=== PATIENT | male | born 1960 | race Two or more races ===

== ENCOUNTER 2023-01-29 07:10 | Inpatient (IN) | payer MEDICARE, MEDICAID, SELFPAY ==
[2023-01-29] VITALS (15 sets, daily range): BP systolic 72–143; BP diastolic 41–82; PULSE 75–120; RESP 14–32; TEMP 35–38.1; O2SAT 90–100; BMI 24.7; BMI 25.1
--- NOTE | ~2023-01-29 | XR_ITS ---
EXAMINATION: XR CHEST CLINICAL INFORMATION: Intubated. COMPARISON: Chest radiograph dated 07/22/2014. TECHNIQUE: Frontal view of the chest was obtained. FINDINGS: Endotracheal tube with the tip approximately 3.8 cm proximal to the eliot. Mild interstitial prominence without focal airspace consolidation. No pleural effusion or pneumothorax. Stable cardiomediastinal silhouette. No acute osseous abnormality. XR/XR chest 1V IMPRESSION: 1. Endotracheal tube with its tip approximately 3.8 cm proximal to the eliot. 2. Mild interstitial prominence without focal airspace consolidation.
--- NOTE | ~2023-01-29 | CT_ITS ---
EXAMINATION: CT HEAD WITHOUT CONTRAST CLINICAL INFORMATION: Status epilepticus. COMPARISON: CT head dated 07/22/2014. TECHNIQUE: Contiguous axial imaging was performed from the skull base to vertex without intravenous administration of contrast. This CT examination was performed using dose optimization techniques as appropriate, variously including the following: *Automated exposure control *Adjustment of mA and/or kV according to patient size (this includes techniques or standardized protocols for targeted exams where dose is matched to indication/reason for exam; i.e. extremities or head) *Use of iterative reconstruction technique DLP: 751 mGy-cm. FINDINGS: No acute intracranial hemorrhage. No mass effect or midline shift. No parenchymal lesion. The forbes-white differentiation is maintained. No extra-axial fluid collection. The ventricles and sulci are unremarkable. The basal cisterns are patent. The calvarium is intact. Mucoperiosteal thickening of the ethmoid air cells and sphenoid sinuses. Mucous retention cysts versus polyps within the right and left maxillary sinuses. Findings are similar when compared to the prior examination. CT/CT head/brain wo IV con IMPRESSION: No acute intracranial hemorrhage or mass effect.
--- NOTE | 2023-01-29 07:22 | ECG_ITS ---
Test Reason : Status epilepticus Blood Pressure : / mmHG Vent. Rate : 116 BPM Atrial Rate : 116 BPM P-R Int : 118 ms QRS Dur : 086 ms QT Int : 320 ms P-R-T Axes : 031 056 018 degrees QTc Int : 444 ms Sinus tachycardia Nonspecific ST abnormality Abnormal ECG When compared with ECG of 24-JUL-2014 06:59, Vent. rate has increased BY [address] and T wave abnormality present Referred By: Troy Paez Electronically Signed By:MICHELE VOGT
[2023-01-29 07:31] LABS: Glucose, Whole Blood 186 mg/dL (60-115)
[2023-01-29] MEDS: Midazolam HCl/NS 50 MG/50 ML PLAST..BAG IVCONT (07:31)
--- NOTE | 2023-01-29 07:31 | ED_ITS ---
HPI - Seizure General Chief Complaint: Seizure Stated Complaint: SEIZURE Time Seen by Provider: 01/29/23 07:16 Source: EMS and old records reviewed Mode of arrival: EMS Limitations: physical limitation (Due to seizure) History of Present Illness HPI Narrative: This 63-year-old male brought in by EMS from [facility] for status epilepticus. Patient was witnessed by nursing staff at [facility] having a seizure for 15- 20 minutes patient was still seizing on EMS arrival patient was given total of 10 mg of multiple doses of Versed at the scene with no seizure cessation, on arrival patient is not seizing, in postictal status, history was obtained from patient's record known to have TBI and alcohol abuse in the past, patient is on Keppra for his seizure and it appears that he is not compliant with his medication. Related Data Home Medications Medication Instructions Recorded Confirmed acetaminophen 325 mg tablet 650 mg PO Q4H PRN Fever Or Pain 01/29/23 01/29/23 aripiprazole 2 mg tablet 3 mg PO DAILY 01/29/23 01/29/23 aspirin 81 mg chewable tablet 81 mg PO DAILY 01/29/23 01/29/23 bisacodyl 10 mg rectal suppository [address] DAILY PRN Constipation 01/29/23 01/29/23 brimonidine 0.2 % eye drops 1 drp ophthalmic (eye) BID 01/29/23 01/29/23 divalproex 125 mg tablet,delayed 125 mg PO BID 01/29/23 01/29/23 release divalproex 250 mg tablet,delayed 250 mg PO BID 01/29/23 01/29/23 release dorzolamide 2 % eye drops 1 drp ophthalmic (eye) BID 01/29/23 01/29/23 fluoride (sodium) 15 ml dental BID 01/29/23 01/29/23 fluoride (sodium) 1.1 % dental 1 appl dental BEDTIME 01/29/23 01/29/23 paste (PreviDent 5000 Booster Plus) lactulose 10 gram/15 mL oral 60 ml PO TID 01/29/23 01/29/23 solution levetiracetam 750 mg tablet 750 mg PO BID 01/29/23 01/29/23 levothyroxine 50 mcg tablet 50 mcg PO DAILY 01/29/23 01/29/23 omega-3 fatty acids 1,000 mg PO DAILY 01/29/23 01/29/23 sennosides 8.6 mg tablet (senna) 8.6 mg PO DAILY PRN Constipation 01/29/23 01/29/23 sodium phosphates 19 gram-[address] DAILY PRN Constipation 01/29/23 01/29/23 gram/118 mL enema (Fleet Enema) timolol maleate 0.5 % eye drops 1 drp ophthalmic (eye) BID 01/29/23 01/29/23 Allergies Allergy/AdvReac Type Severity Reaction Status Date / Time scallops Allergy Mild UNKNOWN Unverified 04/23/20 18:26 shellfish derived Allergy Mild UNKNOWN Unverified 04/23/20 18:26 [SHELLFISH DERIVED] TUNA FISH Allergy Mild UNKNOWN Uncoded 04/23/20 18:26 Review of Systems Review of Systems: All other systems are reviewed and are negative Constitutional: Reports as per HPI and Reports no additional constitutional complaints Eyes: Reports as per HPI and Reports no additional eye complaints Reports system reviewed and no additional complaints, except as documented Cardiovascular: Reports as per HPI and Reports no additional cardiovascular complaints Respiratory: Reports as per HPI and Reports no additional respiratory complaints Gastrointestinal: Reports as per HPI and Reports no additional gastrointestinal complaints Genitourinary: Reports no additional female genitourinary complaints Musculoskeletal: Reports no additional musculoskeletal complaints Skin/Breast: Reports system reviewed and no additional complaints, except as docu Psychiatric: Reports no additional psychiatric complaints Endocrine: Reports no additional endocrine complaints Hematologic/Lymphatic: Reports no additional hematologic/lymphatic complaints Allergic/Immunologic: Reports no additional allergic/immunologic complaints Reports system reviewed and no additional complaints, except as documented and Reports Abnormal speech present [facility] Social History Social History Advance Directives: No Advance Directives Information Provided: No Physical Exam Vital Signs: Vital Signs: Last Vital Signs Temp 99.9 F 01/29/23 09:03 Pulse 90 01/29/23 09:33 Resp 24 H 01/29/23 09:33 BP 127/67 01/29/23 09:33 Pulse Ox 97 01/29/23 09:03 O2 Del Method Mechanical Ventil ation 01/29/23 09:03 FiO2 30 01/29/23 09:16 BMI result Body Mass Index 24.7 Vital signs have been reviewed as appeared to be correct. Blood pressure normal. Heart rate normal. Respiration rate normal. Temperature normal. Oxygen saturation normal. Appearance: Sedated, intubated. No acute distress. Head: Normal external exam. Normocephalic. Atraumatic. No Bains signs noted. No raccoon eyes noted Eyes: PERRLA. EOMI. Conjunctiva and sclera normal. Eyelids normal. ENT: TM's Normal. Pharynx normal. Uvula midline. Moist mucous membranes. No trismus noted. No drooling noted. No muffled voice noted. Neck: Normal inspection. Neck supple. FROM. No adenopathy. Thyroid Normal. No meningeal signs. No neck mass noted. CVS: Normal heart rate and rhythm. Heart sound normal. No murmurs noted. Pulses normal throughout. Respiratory: No respiratory distress. Painless inspiration. Breath sounds normal. No wheezes/rales/rhonchi noted. Chest nontender. No accessory muscle usage noted or decreased air movement noted. Abdomen: Soft and nontender. Bowel sounds normal in all 4 quadrants. No distention noted. No organomegaly noted. No visible injury noted. Back: No CVA tenderness. Full range of motion noted. Skin: Skin warm and dry. Normal skin color. Normal skin turgor. No rashes/lesions/lacerations noted. Extremities: No lower extremity edema. Extremities exhibit normal range of motion. Extremities nontender. Neuro: Sedated and intubated. Course Reevaluation(s) Reevaluation #1: 63-year-old male came in from [facility] for management of status epilepticus, patient initially needed intubation and started on Versed then propofol drip to control his seizures, patient's labs are unremarkable, patient required Levophed drip for short time in the ED to manage his hypotension secondary to sedation and benzo, Dr. serra was consulted to admit the patient to ICU, patient was extubated in the ED. Loaded with [employer] in the ED. Will admit to the floor. Time: 10:13 Medications Administered Generic Name Dose Route Start Last Admin Trade Name Freq PRN Reason Stop Dose Admin Midazolam HCl 50 mg in 50 mls @ 2 mls/hr 01/29/23 07:30 01/29/23 07:57 Versed IVCONT 0 mg/hr .Q24H VANNA 0 mls/hr Infusion 2 MG/HR Propofol 1,000 mg in 100 mls @ 0 mls/hr 01/29/23 08:00 01/29/23 09:33 Diprivan IVCONT 0 mcg/kg/min .Q0M VANNA 0 mls/hr Titration Protocol Per Protocol Norepinephrine Bitartrate 8 mg in 250 mls @ 0 mls/hr 01/29/23 08:15 01/29/23 09:32 Levophed IV 0 mcg/kg/min .Q0M VANNA 0 mls/hr Titration Protocol Per Protocol Discontinued Medications Generic Name Dose Route Start Last Admin Trade Name Freq PRN Reason Stop Dose Admin Sodium Chloride 1,000 mls @ 999 mls/hr 01/29/23 07:22 01/29/23 08:47 Ns IV 01/29/23 08:22 Infused .Q1H1M ONE Infusion Piperacillin Sod/Tazobactam 50 mls @ 100 mls/hr 01/29/23 07:45 01/29/23 08:47 Sod 3.375 gm/ Sodium Chloride IV 01/29/23 08:14 Infused ONCE ONE Infusion Levetiracetam 1,000 mg in 100 mls @ 400 mls/hr 01/29/23 09:08 01/29/23 09:59 Keppra IV 01/29/23 09:22 Infused ONCE ONE Infusion Midazolam HCl 2 mg 01/29/23 07:26 01/29/23 07:38 Midazolam Hcl/Pf 2 Mg/2 Ml Vial IVPUSH 01/29/23 07:27 2 mg ONCE ONE Administration Succinylcholine Chloride 100 mg 01/29/23 07:26 01/29/23 07:38 Succinylcholine Chloride 200 Mg/10 Ml Vial IVPUSH 01/29/23 07:27 100 mg ONCE ONE Administration Medical Decision Making Differential Diagnosis Differential Diagnoses: The differential diagnosis associated with the presentation includes (Intracranial bleed, status epilepticus, electrolytes abnormalities, severe anemia, aspiration pneumonia.) Admission/Observation Consideration of admission/observation: Escalation of care including admission/observation considered Consult Healthcare Provider Management of the patient was discussed with: Clinical Implementation Specialist (Dr. Serra ) Lab Data MDM Lab Attestation statement: I reviewed the patient's lab results. 01/29/23 07:54 01/29/23 07:54 Labs: Lab Results 01/29/23 01/29/23 01/29/23 Range/Units 07:27 07:54 07:54 WBC 14.5 H (4.8-10.8) X10*3/uL RBC 4.42 L (4.60-5.80) X10*6/uL Hgb 13.5 L (14.0-18.0) g/dl Hct 39.7 L (42.0-52.0) % MCV 89.8 (80.0-98.0) fL MCH 30.5 (27.0-33.0) pg MCHC 34.0 (31.0-36.0) g/dl RDW 11.9 (11.0-16.0) % Plt Count 253 (160-400) X10*3/uL MPV 8.8 L (9.4-12.4) fL Immature Gran % (Auto) 1.4 H (0.0-0.4) % Neut % (Auto) 89.6 H (45-73) % Lymph % (Auto) 2.5 L (20-40) % [place] % (Auto) 6.2 (2-11) % Eos % (Auto) 0.1 (0-4) % Baso % (Auto) 0.2 (0-2) % Lymph # (Auto) 0.4 L (1.2-4.9) X10*3/uL [place] # (Auto) 0.9 (0.1-1.2) X10*3/uL Eos # (Auto) 0.0 (0.0-0.4) X10*3/uL Baso # (Auto) 0.0 (0.0-0.2) X10*3/uL Abs Immat Gran (auto) 0.21 H (0.00-0.03) X10*3/uL Absolute Neuts (auto) 13.0 H (2.0-8.3) x10*3/uL Absolute Nucleated RBC 0.000 (0.0-0.012) X10*3/uL Nucleated RBC % (auto) 0.0 (0.0-0.2) /100WBC Sodium 139 (135-145) mmol/L Potassium 4.0 (3.3-5.1) mmol/L Chloride 110 H (96-108) mmol/L Carbon Dioxide 16 L (22-29) mmol/L Anion Gap 17 (12-20) BUN 11 (9-16) mg/dL Creatinine 1.08 (0.5-1.4) mg/dL Estim Creat Clear Calc 73.2 Estimated GFR > 60 POC Glucose 186 H (60-115) mg/dL Random Glucose 160 H (60-115) mg/dL Lactic Acid (0.5-2.0) mmol/L Calcium 8.7 (8.4-10.2) mg/dL Total Bilirubin 0.4 (0.0-1.0) mg/dL Direct Bilirubin 0.1 (0.0-0.5) mg/dL AST 13 (5-37) U/L ALT 14 (0-40) U/L Alkaline Phosphatase 72 (39-117) U/L Total Creatine Kinase 156 (38-174) U/L Troponin I High Sens (<3.5-35.0) ng/L B-Natriuretic Peptide (<100) pg/mL Total Protein 6.3 L (6.5-8.0) g/dL Albumin 3.6 (3.5-5.0) g/dL Lipase 22 (8-78) U/L Urine Color Urine Appearance Urine pH (5.0-9.0) Ur Specific [place] (1.005-1.025) Urine Protein (Neg-Trace) mg/dL Urine Glucose (UA) (Negative) mg/dL Urine Ketones (Negative) mg/dL Urine Blood (Negative) Urine Nitrite (Negative) Ur Leukocyte Esterase (Negative) Urine RBC (0-2) /HPF Urine WBC (0-5) /HPF Ur Squamous Epith Cells (0-2) /HPF Urine Bacteria (None Seen) Hyaline Casts (0-2) /LPF Influenza Type A (PCR) (Negative) Influenza Type B (PCR) (Negative) RSV RNA Qual (PCR) (Negative) SARS-CoV-2 RNA (RT-PCR) (Negative) 01/29/23 01/29/23 01/29/23 Range/Units 07:54 07:54 07:54 WBC (4.8-10.8) X10*3/uL RBC (4.60-5.80) X10*6/uL Hgb (14.0-18.0) g/dl Hct (42.0-52.0) % MCV (80.0-98.0) fL MCH (27.0-33.0) pg MCHC (31.0-36.0) g/dl RDW (11.0-16.0) % Plt Count (160-400) X10*3/uL MPV (9.4-12.4) fL Immature Gran % (Auto) (0.0-0.4) % Neut % (Auto) (45-73) % Lymph % (Auto) (20-40) % [place] % (Auto) (2-11) % Eos % (Auto) (0-4) % Baso % (Auto) (0-2) % Lymph # (Auto) (1.2-4.9) X10*3/uL [place] # (Auto) (0.1-1.2) X10*3/uL Eos # (Auto) (0.0-0.4) X10*3/uL Baso # (Auto) (0.0-0.2) X10*3/uL Abs Immat Gran (auto) (0.00-0.03) X10*3/uL Absolute Neuts (auto) (2.0-8.3) x10*3/uL Absolute Nucleated RBC (0.0-0.012) X10*3/uL Nucleated RBC % (auto) (0.0-0.2) /100WBC Sodium (135-145) mmol/L Potassium (3.3-5.1) mmol/L Chloride (96-108) mmol/L Carbon Dioxide (22-29) mmol/L Anion Gap (12-20) BUN (9-16) mg/dL Creatinine (0.5-1.4) mg/dL Estim Creat Clear Calc Estimated GFR POC Glucose (60-115) mg/dL Random Glucose (60-115) mg/dL Lactic Acid 7.8 H* (0.5-2.0) mmol/L Calcium (8.4-10.2) mg/dL Total Bilirubin (0.0-1.0) mg/dL Direct Bilirubin (0.0-0.5) mg/dL AST (5-37) U/L ALT (0-40) U/L Alkaline Phosphatase (39-117) U/L Total Creatine Kinase (38-174) U/L Troponin I High Sens 35.4 H (<3.5-35.0) ng/L B-Natriuretic Peptide 26 (<100) pg/mL Total Protein (6.5-8.0) g/dL Albumin (3.5-5.0) g/dL Lipase (8-78) U/L Urine Color Urine Appearance Urine pH (5.0-9.0) Ur Specific [place] (1.005-1.025) Urine Protein (Neg-Trace) mg/dL Urine Glucose (UA) (Negative) mg/dL Urine Ketones (Negative) mg/dL Urine Blood (Negative) Urine Nitrite (Negative) Ur Leukocyte Esterase (Negative) Urine RBC (0-2) /HPF Urine WBC (0-5) /HPF Ur Squamous Epith Cells (0-2) /HPF Urine Bacteria (None Seen) Hyaline Casts (0-2) /LPF Influenza Type A (PCR) (Negative) Influenza Type B (PCR) (Negative) RSV RNA Qual (PCR) (Negative) SARS-CoV-2 RNA (RT-PCR) (Negative) 01/29/23 01/29/23 Range/Units 07:54 08:00 WBC (4.8-10.8) X10*3/uL RBC (4.60-5.80) X10*6/uL Hgb (14.0-18.0) g/dl Hct (42.0-52.0) % MCV (80.0-98.0) fL MCH (27.0-33.0) pg MCHC (31.0-36.0) g/dl RDW (11.0-16.0) % Plt Count (160-400) X10*3/uL MPV (9.4-12.4) fL Immature Gran % (Auto) (0.0-0.4) % Neut % (Auto) (45-73) % Lymph % (Auto) (20-40) % [place] % (Auto) (2-11) % Eos % (Auto) (0-4) % Baso % (Auto) (0-2) % Lymph # (Auto) (1.2-4.9) X10*3/uL [place] # (Auto) (0.1-1.2) X10*3/uL Eos # (Auto) (0.0-0.4) X10*3/uL Baso # (Auto) (0.0-0.2) X10*3/uL Abs Immat Gran (auto) (0.00-0.03) X10*3/uL Absolute Neuts (auto) (2.0-8.3) x10*3/uL Absolute Nucleated RBC (0.0-0.012) X10*3/uL Nucleated RBC % (auto) (0.0-0.2) /100WBC Sodium (135-145) mmol/L Potassium (3.3-5.1) mmol/L Chloride (96-108) mmol/L Carbon Dioxide (22-29) mmol/L Anion Gap (12-20) BUN (9-16) mg/dL Creatinine (0.5-1.4) mg/dL Estim Creat Clear Calc Estimated GFR POC Glucose (60-115) mg/dL Random Glucose (60-115) mg/dL Lactic Acid (0.5-2.0) mmol/L Calcium (8.4-10.2) mg/dL Total Bilirubin (0.0-1.0) mg/dL Direct Bilirubin (0.0-0.5) mg/dL AST (5-37) U/L ALT (0-40) U/L Alkaline Phosphatase (39-117) U/L Total Creatine Kinase (38-174) U/L Troponin I High Sens (<3.5-35.0) ng/L B-Natriuretic Peptide (<100) pg/mL Total Protein (6.5-8.0) g/dL Albumin (3.5-5.0) g/dL Lipase (8-78) U/L Urine Color Yellow Urine Appearance Clear Urine pH 7.0 (5.0-9.0) Ur Specific [place] 1.010 (1.005-1.025) Urine Protein 30 (1+) H (Neg-Trace) mg/dL Urine Glucose (UA) Negative (Negative) mg/dL Urine Ketones Negative (Negative) mg/dL Urine Blood Negative (Negative) Urine Nitrite Negative (Negative) Ur Leukocyte Esterase Negative (Negative) Urine RBC 3-5 H (0-2) /HPF Urine WBC 0-5 (0-5) /HPF Ur Squamous Epith Cells 0-2 (0-2) /HPF Urine Bacteria None Seen (None Seen) Hyaline Casts 0-2 (0-2) /LPF Influenza Type A (PCR) NEGATIVE (Negative) Influenza Type B (PCR) NEGATIVE (Negative) RSV RNA Qual (PCR) NEGATIVE (Negative) SARS-CoV-2 RNA (RT-PCR) NEGATIVE (Negative) Independent Interpretation I performed an independent interpretation of an: EKG (Sinus tachycardia at 01:12, normal axis deviation, normal intervals, no ST-T changes.), Plain X-Ray (. Endotracheal tube with its tip approximately 3.8 cm proximal to the eliot. 2. Mild interstitial prominence without focal airspace consolidation.) and CT Scan (Head: No acute intrathoracic pathology.) Radiology Impression Discussion of test interpretation with radiology: I have reviewed the radiologist's reading. Independent Historian Clinical information obtained from an independent historian. History obtained from or confirmed by: EMS and Other ([facility] nursing staff) Chronic Conditions Patient?s care impacted by: Other (TBI, and history of alcohol abuse.) Procedures Intubation Time out performed: Yes sedative: Versed Mg Given: 2 paralytic: Succinylcholine Mg Given: 100 Laryngoscope: other (Gliding scope) ET Tube Size: 7.5 ET Tube Uncuffed: No Tube Secured Depth (cm): 24 Tube Secured Location: lips Tube Placement Confirmation: visualized tube passing through cords, equal breath sounds bilaterally, no breath sounds over epigastrium and confirmation by capnometry Patient Tolerated Procedure: well Intubation Complications: none Critical Care Time Critical Care Time Critical Care Time: Yes Total Critical Care Time: 60 Attestation: I spent 60 minutes providing critical care service to the patient, this inclu ding time spent at the bedside to evaluate the patient, reassess the patient, monitoring vital signs, review labs, and radiographic studies, counseling the patient/family, discussing the case with consultants, disposition the patient. Discharge Plan Discharge Clinical Impression: Status epilepticus Patient Disposition: Admitted As Inpatient
[2023-01-29] MEDS: 0.9 % Sodium Chloride 1,000 ML 999 ML IV (07:35)
[2023-01-29] MEDS: Succinylcholine Chloride 200 MG/10 ML VIAL 100 MG IVPUSH (07:38)
[2023-01-29] MEDS: Midazolam HCl/PF 2 MG/2 ML VIAL IVPUSH (07:38)
[2023-01-29 08:02] LABS: MANUAL DIFF FLAG NO
[2023-01-29] MEDS: propofoL 1,000 MG/100 ML VIAL 14.04 MG IVCONT (08:03)
[2023-01-29 08:05] LABS: Basophils Percent Auto 0.2 % (0-2); Eosinophils Percent Auto 0.1 % (0-4); Hematocrit 39.7 % (42.0-52.0); Hemoglobin 13.5 g/dl (14.0-18.0); Imm Gran Abs Auto 0.21 X10*3/uL (0.00-0.03); Imm Gran Pct Auto 1.4 % (0.0-0.4); Lymphocytes Absolute Auto 0.4 X10*3/uL (1.2-4.9); Lymphocytes Percent Auto 2.5 % (20-40); Mean Corpuscular Hemoglobin 30.5 pg (27.0-33.0); Mean Corpuscular Volume 89.8 fL (80.0-98.0); Mean Platelet Volume 8.8 fL (9.4-12.4); Monocytes Absolute Auto 0.9 X10*3/uL (0.1-1.2); Monocytes Percent Auto 6.2 % (2-11); Neutrophils Percent Auto 89.6 % (45-73); Platelet Count 253 X10*3/uL (160-400); Red Blood Count 4.42 X10*6/uL (4.60-5.80); Red Cell Distribution Width 11.9 % (11.0-16.0); White Blood Count 14.5 X10*3/uL (4.8-10.8)
[2023-01-29 08:09] LABS: Appearance Urine Clear; Color Urine Yellow; Glucose Urine UA Negative (Negative); Leukocyte Esterase Urine Negative (Negative); Nitrite Urine Negative (Negative); UMIC TRIGGER UACC YES; Urine Blood Negative (Negative); Urine Ketones Negative (Negative); Urine Protein 30 (1+) mg/dL (Neg-Trace)
[2023-01-29 08:14] LABS: Bacteria Urine None Seen (None Seen); Hyaline Casts Urine 0-2 /LPF (0-2); Squamous Epithelial Cell Urine 0-2 /HPF (0-2); WBC Urine 0-5 /HPF (0-5)
[2023-01-29] MEDS: Piperacillin Sodium/Tazobactam 3.375 GM in 0.9 % Sodium Chloride 50 ML IV (08:14)
[2023-01-29 08:18] LABS: Lactic Acid 7.8 mmol/L (0.5-2.0)
[2023-01-29 08:20] LABS: Alanine Aminotransferase 14 U/L (0-40); Albumin Level 3.6 g/dL (3.5-5.0); Alkaline Phosphatase 72 U/L (39-117); Anion Gap 17 (12-20); Aspartate Amino Transferase 13 U/L (5-37); Bilirubin Direct 0.1 mg/dL (0.0-0.5); Bilirubin Total 0.4 mg/dL (0.0-1.0); Blood Urea Nitrogen 11 mg/dL (9-16); Calcium 8.7 mg/dL (8.4-10.2); Carbon Dioxide 16 mmol/L (22-29); Chloride 110 mmol/L (96-108); Creatinine Clr Calc Pharmacy 73.2; Estimated Glomerular Filt Rate > 60; Glucose Random 160 mg/dL (60-115); Lipase 22 U/L (8-78); Sodium 139 mmol/L (135-145); Total Protein 6.3 g/dL (6.5-8.0)
[2023-01-29 08:27] LABS: B Type Natriuretic Peptide 26 pg/mL (<100); Troponin-I High Sensitivity 35.4 ng/L (<3.5-35.0)
[2023-01-29] MEDS: Norepinephrine Bitartrate/D5W 8 MG/250 ML PLAST..BAG 7.31 MG IV (08:29)
[2023-01-29 08:44] LABS: Influenza A PCR NEGATIVE (Negative); Influenza B PCR NEGATIVE (Negative); Resp Syncy Virus RNA Qual PCR NEGATIVE (Negative); SARS COV2 PCR INHOUSE NEGATIVE (Negative)
--- NOTE | 2023-01-29 09:17 | PHA.MEDREC ---
Pharmacy Consult ? Medication Reconciliation Pharmacy has completed the medication reconciliation. Used a list from Claudia at [facility].
[2023-01-29] MEDS: levETIRAcetam in NaCl (iso-os) 1,000 MG/100 ML PIGGYBACK 400 MG IV ×3 (09:19→21:47)
--- NOTE | 2023-01-29 09:50 | PC.NURSE ---
Pt arrived via EMS from [facility] in [place], klonic tonic seizure, Versed 2mg IV Push @ 0715, 100mg Succs IV Push @ 0716, vitals as follows: 137/64, RR 7, SpO2 98%, Co2 17. @ 0719 Pt intubated with 7.5 ET tube 19 @ lip, + color change, 20G IV est. to right hand, 2mg Versed IV pushed @ 0725.
--- NOTE | 2023-01-29 09:54 | PC.NURSE ---
Pt extubated at approximately 0930 (see paper documentation for VS). Pt responds to name, able to follow simple commands, managing own secretions.
[2023-01-29 10:01] LABS: Reflex Lactate? Lactic Acid Added
--- NOTE | 2023-01-29 10:44 | P.HPHOSP_ITS ---
History of Present Illness Date of Service: 01/29/23 Chief Complaint: intractable seizures 63-year-old male well known to me from [facility] presents with intractable seizures. He was witnessed to have repeated seizures at [facility] and transported to [facility] for treatment of same. In ER he required intubation and brief pressors secondary to benzo/propofol use. He seizures did relent and patient was successfully extubated in ER. He did receive a loading dose of Keppra. He will be admitted to telemetry and Keppra repleted IV. When examined, patient recognized me but had some left-sided weakness and facial droop. Review of Systems Review of Systems: Unable to obtain PMFSH Social History Advance Directives: No Advance Directives Information Provided: No Meds Allergies Allergy/AdvReac Type Severity Reaction Status Date / Time scallops Allergy Mild UNKNOWN Unverified 04/23/20 18:26 shellfish derived Allergy Mild UNKNOWN Unverified 04/23/20 18:26 [SHELLFISH DERIVED] TUNA FISH Allergy Mild UNKNOWN Uncoded 04/23/20 18:26 Active Medications: Current Medications Acetaminophen (Acetaminophen 325 Mg Tablet) 650 mg PO Q4H PRN PRN Reason: Fever Or Pain Aripiprazole (Aripiprazole 2 Mg Tablet) 3 mg PO DAILY [facility] Aspirin (Aspirin 81 Mg Tab.Chew) 81 mg PO DAILY [facility] Bisacodyl (Bisacodyl 10 Mg Supp.Rect) 10 mg IA DAILY PRN PRN Reason: Constipation Brimonidine Tartrate (Brimonidine Tartrate 0.2% Oph 5 Ml Bottle) 1 drop EYE- BOTH BID [facility] Divalproex Sodium (Divalproex Sodium 250 Mg Tablet.Dr) 250 mg PO BID [facility] Dorzolamide HCl (Dorzolamide Hcl 2 % Ophth Tamika 10 Ml Drpbtl) 1 drop EYE-BOTH BID [facility] Midazolam HCl (Versed) 50 mg in 50 mls @ 2 mls/hr IVCONT .Q24H [facility] Last Infusion: 01/29/23 07:57 Dose: 0 mg/hr, 0 mls/hr Propofol (Diprivan) 1,000 mg in 100 mls @ 0 mls/hr IVCONT .Q0M [facility]; Protocol Last Titration: 01/29/23 09:33 Dose: 0 mcg/kg/min, 0 mls/hr Norepinephrine Bitartrate (Levophed) 8 mg in 250 mls @ 0 mls/hr IV .Q0M [facility]; Protocol Last Titration: 01/29/23 09:32 Dose: 0 mcg/kg/min, 0 mls/hr Levetiracetam (Keppra) 1,000 mg in 100 mls @ 400 mls/hr IV Q12H [facility] Lactulose (Lactulose 20 Gm/30 Ml Solution) 40 gm PO TID [facility] Levothyroxine Sodium (Levothyroxine Sodium 50 Mcg Tablet) 50 mcg PO DAILY [facility] Non-Formulary Medication (Divalproex) 125 mg PO BID [facility] Pharmacy Consult (Consult Rx Perform Med Rec) 1 each MISCELLANE ONCE PRN PRN Reason: Consult order Senna (Sennosides 8.6 Mg Tablet) 8.6 mg PO DAILY PRN PRN Reason: Constipation Sodium Biphosphate/Sodium Phosphate (Sodium Phosphate,[place]-Dibasic 133 Ml Enema) 118 ml IA DAILY PRN PRN Reason: Constipation Sodium Chloride (0.9 % Sodium Chloride Flush 3 Ml Syringe) 3 ml IVFLUSH QSHIFT [facility] Timolol Maleate (Timolol Maleate 0.5 % Oph Tamika 5 Ml Drbtl) 1 drop EYE-BOTH BID [facility] Home Medications Medication Instructions Recorded Confirmed Last Taken Type acetaminophen 325 mg tablet 650 mg PO Q4H PRN Fever Or Pain 01/29/23 01/29/23 Unknown History aripiprazole 2 mg tablet 3 mg PO DAILY 01/29/23 01/29/23 Unknown History aspirin 81 mg chewable tablet 81 mg PO DAILY 01/29/23 01/29/23 Unknown History bisacodyl 10 mg rectal suppository 10 mg IA DAILY PRN Constipation 01/29/23 01/29/23 Unknown History brimonidine 0.2 % eye drops 1 drp ophthalmic (eye) BID 01/29/23 01/29/23 Unknown History divalproex 125 mg tablet,delayed 125 mg PO BID 01/29/23 01/29/23 Unknown History release divalproex 250 mg tablet,delayed 250 mg PO BID 01/29/23 01/29/23 Unknown History release dorzolamide 2 % eye drops 1 drp ophthalmic (eye) BID 01/29/23 01/29/23 Unknown History fluoride (sodium) 15 ml dental BID 01/29/23 01/29/23 Unknown History fluoride (sodium) 1.1 % dental 1 appl dental BEDTIME 01/29/23 01/29/23 Unknown History paste (PreviDent 5000 Booster Plus) lactulose 10 gram/15 mL oral 60 ml PO TID 01/29/23 01/29/23 Unknown History solution levetiracetam 750 mg tablet 750 mg PO BID 01/29/23 01/29/23 Unknown History levothyroxine 50 mcg tablet 50 mcg PO DAILY 01/29/23 01/29/23 Unknown History omega-3 fatty acids 1,000 mg PO DAILY 01/29/23 01/29/23 Unknown History sennosides 8.6 mg tablet (senna) 8.6 mg PO DAILY PRN Constipation 01/29/23 01/29/23 Unknown History sodium phosphates 19 gram-7 118 ml IA DAILY PRN Constipation 01/29/23 01/29/23 Unknown History gram/118 mL enema (Fleet Enema) timolol maleate 0.5 % eye drops 1 drp ophthalmic (eye) BID 01/29/23 01/29/23 Unknown History Physical Exam Vital Signs and Narrative: Vital Signs: Last Vital Signs Temp 99.9 F 01/29/23 09:03 Pulse 90 01/29/23 09:33 Resp 24 H 01/29/23 09:33 BP 127/67 01/29/23 09:33 Pulse Ox 97 01/29/23 09:03 O2 Del Method Mechanical Ventil ation 01/29/23 09:03 FiO2 30 01/29/23 09:16 BMI result Body Mass Index 24.7 Const: Other: Somnolent but arousable Chest: Other: Clear to auscultation bilaterally no rales rhonchi or wheezes Resp: Other: Clear to auscultation bilaterally no rales rhonchi or wheezes Cardio: Other: No S4; positive S1-S2; no S3 murmurs rubs or gallops GI: Other: Soft nontender nondistended normoactive bowel sounds Neuro: Other: Mild facial asymmetry. Motor 4/5 left upper and lower extremities; 5/5 on right. Sensation is intact speech is slow but understandable Extrem: Other: No edema bilaterally Results Labs 01/29/23 07:54 01/29/23 07:54 Labs: Laboratory Results - last 24 hr 01/29/23 01/29/23 01/29/23 07:27 07:54 07:54 MCV 89.8 MCH 30.5 MCHC 34.0 RDW 11.9 Plt Count 253 MPV 8.8 L Immature Gran % (Auto) 1.4 H Neut % (Auto) 89.6 H Lymph % (Auto) 2.5 L Cascade % (Auto) 6.2 Eos % (Auto) 0.1 Baso % (Auto) 0.2 Lymph # (Auto) 0.4 L Cascade # (Auto) 0.9 Eos # (Auto) 0.0 Baso # (Auto) 0.0 Abs Immat Gran (auto) 0.21 H Absolute Neuts (auto) 13.0 H Absolute Nucleated RBC 0.000 Nucleated RBC % (auto) 0.0 Anion Gap 17 Estim Creat Clear Calc 73.2 Estimated GFR > 60 POC Glucose 186 H Random Glucose 160 H Lactic Acid Calcium 8.7 Total Bilirubin 0.4 Direct Bilirubin 0.1 AST 13 ALT 14 Alkaline Phosphatase 72 Total Creatine Kinase 156 Troponin I High Sens B-Natriuretic Peptide Total Protein 6.3 L Albumin 3.6 Lipase 22 Urine Color Urine Appearance Urine pH Ur Specific [place] Urine Protein Urine Glucose (UA) Urine Ketones Urine Blood Urine Nitrite Ur Leukocyte Esterase Urine RBC Urine WBC Ur Squamous Epith Cells Urine Bacteria Hyaline Casts Influenza Type A (PCR) Influenza Type B (PCR) RSV RNA Qual (PCR) SARS-CoV-2 RNA (RT-PCR) 01/29/23 01/29/23 01/29/23 07:54 07:54 07:54 MCV MCH MCHC RDW Plt Count MPV Immature Gran % (Auto) Neut % (Auto) Lymph % (Auto) Cascade % (Auto) Eos % (Auto) Baso % (Auto) Lymph # (Auto) Cascade # (Auto) Eos # (Auto) Baso # (Auto) Abs Immat Gran (auto) Absolute Neuts (auto) Absolute Nucleated RBC Nucleated RBC % (auto) Anion Gap Estim Creat Clear Calc Estimated GFR POC Glucose Random Glucose Lactic Acid 7.8 H* Calcium Total Bilirubin Direct Bilirubin AST ALT Alkaline Phosphatase Total Creatine Kinase Troponin I High Sens 35.4 H B-Natriuretic Peptide 26 Total Protein Albumin Lipase Urine Color Urine Appearance Urine pH Ur Specific [place] Urine Protein Urine Glucose (UA) Urine Ketones Urine Blood Urine Nitrite Ur Leukocyte Esterase Urine RBC Urine WBC Ur Squamous Epith Cells Urine Bacteria Hyaline Casts Influenza Type A (PCR) Influenza Type B (PCR) RSV RNA Qual (PCR) SARS-CoV-2 RNA (RT-PCR) 01/29/23 01/29/23 07:54 08:00 MCV MCH MCHC RDW Plt Count MPV Immature Gran % (Auto) Neut % (Auto) Lymph % (Auto) Cascade % (Auto) Eos % (Auto) Baso % (Auto) Lymph # (Auto) Cascade # (Auto) Eos # (Auto) Baso # (Auto) Abs Immat Gran (auto) Absolute Neuts (auto) Absolute Nucleated RBC Nucleated RBC % (auto) Anion Gap Estim Creat Clear Calc Estimated GFR POC Glucose Random Glucose Lactic Acid Calcium Total Bilirubin Direct Bilirubin AST ALT Alkaline Phosphatase Total Creatine Kinase Troponin I High Sens B-Natriuretic Peptide Total Protein Albumin Lipase Urine Color Yellow Urine Appearance Clear Urine pH 7.0 Ur Specific [place] 1.010 Urine Protein 30 (1+) H Urine Glucose (UA) Negative Urine Ketones Negative Urine Blood Negative Urine Nitrite Negative Ur Leukocyte Esterase Negative Urine RBC 3-5 H Urine WBC 0-5 Ur Squamous Epith Cells 0-2 Urine Bacteria None Seen Hyaline Casts 0-2 Influenza Type A (PCR) NEGATIVE Influenza Type B (PCR) NEGATIVE RSV RNA Qual (PCR) NEGATIVE SARS-CoV-2 RNA (RT-PCR) NEGATIVE Imaging Radiologist's Impressions: Impressions Chest X-Ray 01/29/23 08:11 IMPRESSION: 1. Endotracheal tube with its tip approximately 3.8 cm proximal to the eliot. 2. Mild interstitial prominence without focal airspace consolidation. Head CT 01/29/23 09:06 IMPRESSION: No acute intracranial hemorrhage or mass effect. Assessment and Plan (1) Status epilepticus: Status: Acute (2) History of traumatic brain injury: Status: Acute (3) Bipolar 1 disorder: Status: Acute Plan 63-year-old male resident of [facility] with history of traumatic brain injury/bipolar 1 disorder with known seizure disorder presents today and status epilepticus. He is known to be noncompliant with medications at [facility]. He was intubated to facilitate benzos/propofol to facilitate seizure cessation; subsequently extubated in the ER. Will be admitted to telemetry overnight hopeful discharge to [facility] in a.m. 1. Status epilepticus/TBI -seizure precautions -IV Keppra q.12 hours -nursing bedside swallow... Advanced diet as appropriate 2. Bipolar disorder -continue home meds if passes swallow -adjust as indicated -return to [facility] as soon as medically acceptable Boots Full Code Patient will require at least 2 midnights going forward of inpatient stay to load with IV Keppra monitor for further seizures. This cannot be done and less acute setting Time Spent With Patient Time: Total time managing care of this patient today ____ minutes. Quality Stroke Does the patient have a stroke diagnosis?: No VTE Prior VTE?: No VTE Risk Level:: Medical - moderate - high VTE Device Contraindication: N/A - Device Ordered VTE Drug Contraindication: Treatment Not Indicated
--- NOTE | 2023-01-29 10:45 | PC.NURSE ---
pct alerting this rn to pt appearing to be on floor in room 5, pt appears to be on knees in front of stretcher, pulling at cardiac, bp, and august wires accidentally. no injury or dislodgment of pt equipment noted to pt, brought back to bed without issue. pt denies any pain, any loc. provider made aware of pt event. bed placed in lowest position with both side rails up.
[2023-01-29 11:15] LABS: ~Lactic Acid-LAB USE ONLY 2.2 mmol/L (0.5-2.0)
--- NOTE | 2023-01-29 11:25 | PC.NURSE ---
Pt post-ictal, attempting to get OOB, stating he has to urinate (August cath in place). Due to Pt cont. trying to remove august and get OOB, August was removed for safety and Pt was given a urinal.
--- NOTE | 2023-01-29 12:12 | PC.NURSE ---
Pt alert, responding to questions appropriately, left sided face droop still noted, able to move left hand appropriately, pending bed assignment, supervisor housecleaner notified/ aware camera needed for Pt safety.
[2023-01-29 12:59] LABS: Reflex Lactate? 2 Y
[2023-01-29 13:28] LABS: ~Lactic Acid-LAB USE ONLY 1.3 mmol/L (0.5-2.0)
[2023-01-29] MEDS: Lactulose 20 GM/30 ML SOLUTION 40 GM PO (21:47)
[2023-01-29] MEDS: Divalproex Sodium 250 MG TABLET.DR PO (21:47)
[2023-01-29] MEDS: Divalproex Sodium Sprinkles 125 MG CAP.DR.SPR PO (21:47)
[2023-01-29] MEDS: 0.9 % Sodium Chloride Flush 3 ML SYRINGE IVFLUSH (21:49)
[2023-01-29] MEDS: Brimonidine Tartrate 0.2% Oph 5 ML BOTTLE 1 DROP EYE-BOTH (23:31)
[2023-01-29] MEDS: timoloL maleate 0.5 % Oph Sol 5 ML DRBTL 1 DROP EYE-BOTH (23:31)
[2023-01-29] MEDS: Dorzolamide HCl 2 % Ophth Sol 10 ML DRPBTL 1 DROP EYE-BOTH (23:31)
[2023-01-30] VITALS: BP 134/80; PULSE 82; RESP 20; TEMP 36.1; O2SAT 96
--- NOTE | 2023-01-30 03:09 | PC.NURSE ---
Pt alert to person, unable to state place or time. Refuses to answer questions when prompting further. No c/o pain or discomfort. No s/sx respiratory distress. No s/sx seziure activity. Seizure precautions in place. Video monitor and constant mortgage broker at bedside. Pt more awake this shift than previous able to participate in bedside swallow exam. Passed, notified regular diet ordered. Pt continues to refuse tele monitor by ripping it off chest. NSR to ST when on and able to capture. See chart for further details. Call mclain within reach, bed in lowest locked position.
[2023-01-30 03:48] VITALS: PULSE 70; RESP 20; TEMP 36.4; O2SAT 97
[2023-01-30] MEDS: Levothyroxine Sodium 50 MCG TABLET PO (05:50)
[2023-01-30 07:01] LABS: MANUAL DIFF FLAG NO
[2023-01-30 07:05] VITALS: BP 129/77; PULSE 74; RESP 20; TEMP 37; O2SAT 96
[2023-01-30 07:06] LABS: Basophils Percent Auto 0.4 % (0-2); Eosinophils Absolute Auto 0.1 X10*3/uL (0.0-0.4); Hematocrit 40.9 % (42.0-52.0); Hemoglobin 13.8 g/dl (14.0-18.0); Imm Gran Abs Auto 0.08 X10*3/uL (0.00-0.03); Imm Gran Pct Auto 0.8 % (0.0-0.4); Lymphocytes Absolute Auto 2.1 X10*3/uL (1.2-4.9); Lymphocytes Percent Auto 20.5 % (20-40); Mean Corpuscular HGB Conc 33.7 g/dl (31.0-36.0); Mean Corpuscular Hemoglobin 30.2 pg (27.0-33.0); Mean Corpuscular Volume 89.5 fL (80.0-98.0); Mean Platelet Volume 9.3 fL (9.4-12.4); Monocytes Percent Auto 9.8 % (2-11); Neutrophils Absolute Auto 6.9 x10*3/uL (2.0-8.3); Neutrophils Percent Auto 67.5 % (45-73); Platelet Count 243 X10*3/uL (160-400); Red Blood Count 4.57 X10*6/uL (4.60-5.80); Red Cell Distribution Width 12.1 % (11.0-16.0); White Blood Count 10.3 X10*3/uL (4.8-10.8)
[2023-01-30] MEDS: ARIPiprazole 2 MG TABLET 3 MG PO (08:04)
[2023-01-30] MEDS: Divalproex Sodium 250 MG TABLET.DR PO (08:04)
[2023-01-30] MEDS: Aspirin 81 MG TAB.CHEW PO (08:04)
[2023-01-30] MEDS: Divalproex Sodium Sprinkles 125 MG CAP.DR.SPR PO (08:04)
[2023-01-30] MEDS: Brimonidine Tartrate 0.2% Oph 5 ML BOTTLE 1 DROP EYE-BOTH (08:05)
[2023-01-30] MEDS: timoloL maleate 0.5 % Oph Sol 5 ML DRBTL 1 DROP EYE-BOTH (08:05)
[2023-01-30] MEDS: Dorzolamide HCl 2 % Ophth Sol 10 ML DRPBTL 1 DROP EYE-BOTH (08:05)
[2023-01-30] MEDS: 0.9 % Sodium Chloride Flush 3 ML SYRINGE IVFLUSH (08:05)
[2023-01-30] MEDS: levETIRAcetam in NaCl (iso-os) 1,000 MG/100 ML PIGGYBACK 400 MG IV (08:06)
--- NOTE | 2023-01-30 08:11 | MHC.CM.PN ---
Patient is a LTC Resident od [facility] and returning there is the goal. CM has initiated and will follow for dc planning.IMM addressed.
[2023-01-30 08:51] LABS: Alanine Aminotransferase 21 U/L (0-40); Albumin Level 3.8 g/dL (3.5-5.0); Alkaline Phosphatase 73 U/L (39-117); Anion Gap 14 (12-20); Aspartate Amino Transferase 47 U/L (5-37); Bilirubin Total 0.8 mg/dL (0.0-1.0); Blood Urea Nitrogen 10 mg/dL (9-16); Calcium 9.3 mg/dL (8.4-10.2); Carbon Dioxide 22 mmol/L (22-29); Chloride 108 mmol/L (96-108); Creatinine Clr Calc Pharmacy 106.8; Estimated Glomerular Filt Rate > 60; Glucose Fasting 71 mg/dL (60-99); Potassium 3.8 mmol/L (3.3-5.1); Sodium 140 mmol/L (135-145); Total Protein 6.7 g/dL (6.5-8.0)
[2023-01-30 09:29] LABS: Valproate 22.6 mcg/mL (50.0-100.0)
--- NOTE | 2023-01-30 10:46 | PM.NEUROCN ---
History of Present Illness Data of Consult Service Date: 01/30/23 Primary Care Provider: Douglas Kelly DO HPI Reason for consult: Seizure disorder 63 years old man who had multiple admission in this hospital with ?seizures?. This time he was again noted to have seizures and was treated in emergency room including intubation. At some point he was extubated and now he was doing better. During this time he was treated with Keppra. He could not provide meaningful detail, which has been the case during my previous interactions with him. Review of Systems Review of Systems: No recent cold or flu-like illness PMFSH Social History Social History Household Members: Unknown / Unable to assess Housing: Other Housing Other:: pt came in from [facility] Do you presently have visiting nurse or other home services: No Patient Tobacco Use Status: Never used Tobacco e-Cigarette/Vaping Use: Never Used service: No Meds Allergies Allergy/AdvReac Type Severity Reaction Status Date / Time scallops Allergy Mild UNKNOWN Unverified 04/23/20 18:26 shellfish derived Allergy Mild UNKNOWN Unverified 04/23/20 18:26 [SHELLFISH DERIVED] TUNA FISH Allergy Mild UNKNOWN Uncoded 04/23/20 18:26 Active Medications: Current Medications Acetaminophen (Acetaminophen 325 Mg Tablet) 650 mg PO Q4H PRN PRN Reason: Fever Or Pain Aripiprazole (Aripiprazole 2 Mg Tablet) 3 mg PO DAILY [facility] Last Admin: 01/30/23 08:04 Dose: 3 mg Aspirin (Aspirin 81 Mg Tab.Chew) 81 mg PO DAILY [facility] Last Admin: 01/30/23 08:04 Dose: 81 mg Bisacodyl (Bisacodyl 10 Mg Supp.Rect) 10 mg AK DAILY PRN PRN Reason: Constipation Brimonidine Tartrate (Brimonidine Tartrate 0.2% Oph 5 Ml Bottle) 1 drop EYE-BOTH BID [facility] Last Admin: 01/30/23 08:05 Dose: 1 drop Divalproex Sodium (Divalproex Sodium 250 Mg Tablet.Dr) 250 mg PO BID [facility] Last Admin: 01/30/23 08:04 Dose: 250 mg Divalproex Sodium (Divalproex Sodium Sprinkles 125 Mg Cap.Dr.Spr) 125 mg PO BID [facility] Last Admin: 01/30/23 08:04 Dose: 125 mg Dorzolamide HCl (Dorzolamide Hcl 2 % Ophth Tamika 10 Ml Drpbtl) 1 drop EYE-BOTH BID [facility] Last Admin: 01/30/23 08:05 Dose: 1 drop Propofol (Diprivan) 1,000 mg in 100 mls @ 0 mls/hr IVCONT .Q0M [facility]; Protocol Last Titration: 01/29/23 09:33 Dose: 0 mcg/kg/min, 0 mls/hr Levetiracetam (Keppra) 1,000 mg in 100 mls @ 400 mls/hr IV BID [facility] Last Infusion: 01/30/23 08:29 Dose: Infused Lactulose (Lactulose 20 Gm/30 Ml Solution) 40 gm PO TID [facility] Last Admin: 01/30/23 08:05 Dose: Not Given Levothyroxine Sodium (Levothyroxine Sodium 50 Mcg Tablet) 50 mcg PO DAILY@0600 [facility] Last Admin: 01/30/23 05:50 Dose: 50 mcg Pharmacy Consult (Consult Rx Perform Med Rec) 1 each MISCELLANE ONCE PRN PRN Reason: Consult order Senna (Sennosides 8.6 Mg Tablet) 8.6 mg PO DAILY PRN PRN Reason: Constipation Sodium Biphosphate/Sodium Phosphate (Sodium Phosphate,[place]-Dibasic 133 Ml Enema) 118 ml AK DAILY PRN PRN Reason: Constipation Sodium Chloride (0.9 % Sodium Chloride Flush 3 Ml Syringe) 3 ml IVFLUSH QSHIFT [facility] Last Admin: 01/30/23 08:05 Dose: 3 ml Timolol Maleate (Timolol Maleate 0.5 % Oph Tamika 5 Ml Drbtl) 1 drop EYE-BOTH BID [facility] Last Admin: 01/30/23 08:05 Dose: 1 drop Home Medications Medication Instructions Recorded Confirmed Last Taken Type acetaminophen 325 mg tablet 650 mg PO Q4H PRN Fever Or Pain 01/29/23 01/29/23 Unknown History aripiprazole 2 mg tablet 3 mg PO DAILY 01/29/23 01/29/23 Unknown History aspirin 81 mg chewable tablet 81 mg PO DAILY 01/29/23 01/29/23 Unknown History bisacodyl 10 mg rectal suppository 10 mg AK DAILY PRN Constipation 01/29/23 01/29/23 Unknown History brimonidine 0.2 % eye drops 1 drp ophthalmic (eye) BID 01/29/23 01/29/23 Unknown History divalproex 125 mg tablet,delayed 125 mg PO BID 01/29/23 01/29/23 Unknown History release divalproex 250 mg tablet,delayed 250 mg PO BID 01/29/23 01/29/23 Unknown History release dorzolamide 2 % eye drops 1 drp ophthalmic (eye) BID 01/29/23 01/29/23 Unknown History fluoride (sodium) 15 ml dental BID 01/29/23 01/29/23 Unknown History fluoride (sodium) 1.1 % dental 1 appl dental BEDTIME 01/29/23 01/29/23 Unknown History paste (PreviDent 5000 Booster Plus) lactulose 10 gram/15 mL oral 60 ml PO TID 01/29/23 01/29/23 Unknown History solution levetiracetam 750 mg tablet 750 mg PO BID 01/29/23 01/29/23 Unknown History levothyroxine 50 mcg tablet 50 mcg PO DAILY 01/29/23 01/29/23 Unknown History omega-3 fatty acids 1,000 mg PO DAILY 01/29/23 01/29/23 Unknown History sennosides 8.6 mg tablet (senna) 8.6 mg PO DAILY PRN Constipation 01/29/23 01/29/23 Unknown History sodium phosphates 19 gram-7 118 ml AK DAILY PRN Constipation 01/29/23 01/29/23 Unknown History gram/118 mL enema (Fleet Enema) timolol maleate 0.5 % eye drops 1 drp ophthalmic (eye) BID 01/29/23 01/29/23 Unknown History Physical Exam Vital Signs: Vital Signs: Last Vital Signs Temp 98.6 F 01/30/23 07:05 Pulse 74 01/30/23 07:05 Resp 20 01/30/23 07:05 BP 129/77 01/30/23 07:05 Pulse Ox 96 01/30/23 07:05 O2 Del Method Room Air 01/30/23 07:05 FiO2 30 01/29/23 09:16 BMI result Body Mass Index 25.1 Neuro: Other: Alert and awake with normal spontaneity of speech fluency comprehension and euphoric affect. Face is symmetrical. Visual rodrigez are full. There is no focal arm or leg weakness. Deep tendon reflexes are trace to 1+ with flexor plantars were Results Labs 01/30/23 05:46 01/30/23 05:46 Labs: Short CBC 01/30/23 Range/Units 05:46 WBC 10.3 (4.8-10.8) X10*3/uL Hgb 13.8 L (14.0-18.0) g/dl Hct 40.9 L (42.0-52.0) % Plt Count 243 (160-400) X10*3/uL BMP 01/30/23 05:46 Sodium 140 Potassium 3.8 Chloride 108 Carbon Dioxide 22 BUN 10 Creatinine 0.74 Calcium 9.3 D Liver Function 01/30/23 Range/Units 05:46 Total Bilirubin 0.8 (0.0-1.0) mg/dL AST 47 H (5-37) U/L ALT 21 (0-40) U/L Alkaline Phosphatase 73 (39-117) U/L Albumin 3.8 (3.5-5.0) g/dL Head CT revealed mild microvascular ischemic changes per Microbiology Microbiology Results: Microbiology 01/29/23 07:54 Blood - Venous Blood Culture - Preliminary No growth after 24 hours. 01/29/23 07:54 Blood - Venous Blood Culture - Preliminary No growth after 24 hours. Assessment and Plan (1) Seizure disorder: Status: Acute 63 years old man with multiple admission in this hospital for seizure disorder. I have seen him couple of times before and similar situation. Exact nature of seizures and confirmation with EEG has been missing. Despite that, this time he was intubated suggesting that seizures were significant. My recommendation is to continue levetiracetam 750 mg twice a day. If any seizure-like episode happens, increase her dose to 1000 mg twice a day. Time Spent With Patient Time: Total time managing care of this patient today ____ minutes. Procedures Date of Service Date of Service: 01/30/23
[2023-01-30 11:05] VITALS: BP 123/79; PULSE 76; RESP 20; TEMP 36.7; O2SAT 95
--- NOTE | 2023-01-30 13:03 | PM.DS ---
DS: Providers Provider Date of Service: 01/30/23 Date of admission: 01/29/23 10:34 Date of discharge: 01/30/23 Primary care physician: Douglas Kelly DO Consults: 01/29/23 14:52 Consult for Sitter Routine Reason for consultation: confusion Has provider been notified: No 01/30/23 08:26 Consult to Neurology Routine Consulting Provider: [facility] Reason for consultation: breakthrough seizure DS: Diagnosis Discharge Diagnosis (1) Seizure disorder: Status: Acute (2) Breakthrough seizure: Status: Acute DS: Summary Hospital Course Hospital Course: from admission H+P by hospitalist Douglas Kelly DO, 01/29/23: 63-year-old male well known to me from [facility] presents with intractable seizures.? He was witnessed to have repeated seizures at [facility] and transported to [facility] for treatment of same.? In ER he required intubation and brief pressors secondary to benzo/propofol use.? He seizures did relent and patient was successfully extubated in ER.? He did receive a loading dose of Keppra.? He will be admitted to telemetry and Keppra repleted IV.? When examined, patient recognized me but had some left-sided weakness and facial droop. [facility] on a higher dose of Keppra, 1 g bid. Seizures did not recur. Left-sided weakness and facial drop resolved. He passed a bedside swallow evaluation. He was discharged back to [facility] on the higher dose of Keppra. Time Spent with Patient Time attestation: Total time managing care of this patient today __35__ minutes. Discharge coordination time: Greater than 30 minutes Quality: Safe Use of Opioids Does Pt have an Active Cancer Diagnosis on the Problem List?: No Quality: Stroke Does the patient have a stroke diagnosis?: No Physical Exam Vital Signs: Vital Signs: Last Vital Signs Temp 98.0 F 01/30/23 11:05 Pulse 76 01/30/23 11:05 Resp 20 01/30/23 11:05 BP 123/79 01/30/23 11:05 Pulse Ox 95 01/30/23 11:05 O2 Del Method Room Air 01/30/23 11:05 FiO2 30 01/29/23 09:16 BMI result Body Mass Index 25.1 Gen: in no acute distress HEENT: sclera anicteric, moist mucus membranes Neck: supple Lungs: clear to auscultation bilaterally Heart: regular rate and rhythm, no murmurs Abd: soft, non-tender, non-distended Ext: no edema Skin: warm/well-perfused Neuro: alert, no motor deficit Psych: appropriate affect DS: Data Data Completed and Pending Completed studies during hospitalization [Text1]: Laboratory Results WBC 10.3 X10*3/uL (4.8-10.8) 01/30/23 05:46 RBC 4.57 X10*6/uL (4.60-5.80) L 01/30/23 05:46 Hgb 13.8 g/dl (14.0-18.0) L 01/30/23 05:46 Hct 40.9 % (42.0-52.0) L 01/30/23 05:46 MCV 89.5 fL (80.0-98.0) 01/30/23 05:46 MCH 30.2 pg (27.0-33.0) 01/30/23 05:46 MCHC 33.7 g/dl (31.0-36.0) 01/30/23 05:46 RDW 12.1 % (11.0-16.0) 01/30/23 05:46 Plt Count 243 X10*3/uL (160-400) 01/30/23 05:46 MPV 9.3 fL (9.4-12.4) L 01/30/23 05:46 Immature Gran % (Auto) 0.8 % (0.0-0.4) H 01/30/23 05:46 Neut % (Auto) 67.5 % (45-73) 01/30/23 05:46 Lymph % (Auto) 20.5 % (20-40) 01/30/23 05:46 [place] % (Auto) 9.8 % (2-11) 01/30/23 05:46 Eos % (Auto) 1.0 % (0-4) 01/30/23 05:46 Baso % (Auto) 0.4 % (0-2) 01/30/23 05:46 Lymph # (Auto) 2.1 X10*3/uL (1.2-4.9) 01/30/23 05:46 [place] # (Auto) 1.0 X10*3/uL (0.1-1.2) 01/30/23 05:46 Eos # (Auto) 0.1 X10*3/uL (0.0-0.4) 01/30/23 05:46 Baso # (Auto) 0.0 X10*3/uL (0.0-0.2) 01/30/23 05:46 Abs Immat Gran (auto) 0.08 X10*3/uL (0.00-0.03) H 01/30/23 05:46 Absolute Neuts (auto) 6.9 x10*3/uL (2.0-8.3) 01/30/23 05:46 Absolute Nucleated RBC 0.000 X10*3/uL (0.0-0.012) 01/30/23 05:46 Nucleated RBC % (auto) 0.0 /100WBC (0.0-0.2) 01/30/23 05:46 Sodium 140 mmol/L (135-145) 01/30/23 05:46 Potassium 3.8 mmol/L (3.3-5.1) 01/30/23 05:46 Chloride 108 mmol/L (96-108) 01/30/23 05:46 Carbon Dioxide 22 mmol/L (22-29) 01/30/23 05:46 Anion Gap 14 (12-20) 01/30/23 05:46 BUN 10 mg/dL (9-16) 01/30/23 05:46 Creatinine 0.74 mg/dL (0.5-1.4) 01/30/23 05:46 Estim Creat Clear Calc 106.8 01/30/23 05:46 Estimated GFR > 60 01/30/23 05:46 POC Glucose 186 mg/dL (60-115) H 01/29/23 07:27 Random Glucose 160 mg/dL (60-115) H 01/29/23 07:54 Fasting Glucose 71 mg/dL (60-99) 01/30/23 05:46 Lactic Acid 7.8 mmol/L (0.5-2.0) H* 01/29/23 07:54 Lactic Acid F/U @ 2Hr 2.2 mmol/L (0.5-2.0) H* 01/29/23 10:57 Lactic Acid F/U @ 4Hr 1.3 mmol/L (0.5-2.0) 01/29/23 13:08 Calcium 9.3 mg/dL (8.4-10.2) D 01/30/23 05:46 Total Bilirubin 0.8 mg/dL (0.0-1.0) 01/30/23 05:46 Direct Bilirubin 0.1 mg/dL (0.0-0.5) 01/29/23 07:54 AST 47 U/L (5-37) H 01/30/23 05:46 ALT 21 U/L (0-40) 01/30/23 05:46 Alkaline Phosphatase 73 U/L (39-117) 01/30/23 05:46 Total Creatine Kinase 156 U/L (38-174) 01/29/23 07:54 Troponin I High Sens 35.4 ng/L (<3.5-35.0) H 01/29/23 07:54 B-Natriuretic Peptide 26 pg/mL (<100) 01/29/23 07:54 Total Protein 6.7 g/dL (6.5-8.0) 01/30/23 05:46 Albumin 3.8 g/dL (3.5-5.0) 01/30/23 05:46 Lipase 22 U/L (8-78) 01/29/23 07:54 Urine Color Yellow 01/29/23 08:00 Urine Appearance Clear 01/29/23 08:00 Urine pH 7.0 (5.0-9.0) 01/29/23 08:00 Ur Specific [place] 1.010 (1.005-1.025) 01/29/23 08:00 Urine Protein 30 (1+) mg/dL (Neg-Trace) H 01/29/23 08:00 Urine Glucose (UA) Negative mg/dL (Negative) 01/29/23 08:00 Urine Ketones Negative mg/dL (Negative) 01/29/23 08:00 Urine Blood Negative (Negative) 01/29/23 08:00 Urine Nitrite Negative (Negative) 01/29/23 08:00 Ur Leukocyte Esterase Negative (Negative) 01/29/23 08:00 Urine RBC 3-5 /HPF (0-2) H 01/29/23 08:00 Urine WBC 0-5 /HPF (0-5) 01/29/23 08:00 Ur Squamous Epith Cells 0-2 /HPF (0-2) 01/29/23 08:00 Urine Bacteria None Seen (None Seen) 01/29/23 08:00 Hyaline Casts 0-2 /LPF (0-2) 01/29/23 08:00 Valproic Acid 22.6 mcg/mL (50.0-100.0) L 01/30/23 08:47 Influenza Type A (PCR) NEGATIVE (Negative) 01/29/23 07:54 Influenza Type B (PCR) NEGATIVE (Negative) 01/29/23 07:54 RSV RNA Qual (PCR) NEGATIVE (Negative) 01/29/23 07:54 SARS-CoV-2 RNA (RT-PCR) NEGATIVE (Negative) 01/29/23 07:54 Impressions Chest X-Ray 01/29/23 08:11 IMPRESSION: 1. Endotracheal tube with its tip approximately 3.8 cm proximal to the eliot. 2. Mild interstitial prominence without focal airspace consolidation. Head CT 01/29/23 09:06 IMPRESSION: No acute intracranial hemorrhage or mass effect. Discharge Plan Discharge Anticipated Discharge Date/Time: 01/30/23 12:57 Patient Disposition: Xfer LTC Discharge Diagnosis: breakthrough seizure Referrals: [facility] [Outside] - 1 Week Yesenia Olivera MD [Physician] - 1 Month Douglas Kelly DO [Primary Care Provider] - 1 Week Discharge Medications: New levetiracetam 1,000 mg tablet 1,000 mg PO BID Qty: 60 0RF Rx Instructions: replaces prior dose 750 mg bid Continued sennosides [senna] 8.6 mg Tablet 8.6 mg PO DAILY PRN (Reason: Constipation) acetaminophen 325 mg Tablet 650 mg PO Q4H PRN (Reason: Fever Or Pain) divalproex 250 mg Tablet,Delayed Release (Dr/Ec) 250 mg PO BID levothyroxine 50 mcg Tablet 50 mcg PO DAILY bisacodyl 10 mg Suppository 10 mg RI DAILY PRN (Reason: Constipation) Rx Instructions: use if senna is ineffective brimonidine 0.2 % Drops 1 drp OPHTHALMIC (EYE) BID Rx Instructions: administer approximately 8 hours apart divalproex 125 mg Tablet,Delayed Release (Dr/Ec) 125 mg PO BID Fleet Enema 19-7 gram/118 mL Enema 118 ml RI DAILY PRN (Reason: Constipation) Rx Instructions: use is Biscodyl ineffective timolol maleate 0.5 % Drops 1 drp OPHTHALMIC (EYE) BID dorzolamide 2 % drops 1 drp ophthalmic (eye) BID omega-3 fatty acids Capsule 1,000 mg PO DAILY lactulose 10 gram/15 mL Solution 60 ml PO TID aripiprazole 2 mg Tablet 3 mg PO DAILY fluoride (sodium) [PreviDent 5000 Booster Plus] 1.1 % Paste 1 appl DENTAL BEDTIME fluoride (sodium) 0.02 % (0.044 % sod. fluoride) Solution 15 ml DENTAL BID aspirin 81 mg Tablet,Chewable 81 mg PO DAILY Discontinued levetiracetam 750 mg Tablet 750 mg PO BID Discharge Orders: Discharge Order (Routine); Ordered 01/30/23 Ordered By: Mayco Cohen Diet: Advance to usual diet Activity on Discharge: As tolerated Stand Alone Forms: Patient Portal Discharge page Care Plan Goals: seizure prevention Health Concerns: breakthrough seizure Plan of Treatment: increase levetiracetam to 1000 mg bid outpatient neurology followup Please follow up with your primary care doctor within 1 week. Return to the hospital if you experience recurrent or worsening symptoms. Assessment: See Discharge Summary.
--- NOTE | 2023-01-30 13:51 | MHC.CM.PN ---
Patient has been medically cleared for dc to LTC today. Patient will return to LTC @ [facility] today at 4PM, via [facility].
[2023-01-30 14:55] VITALS: BP 137/76; PULSE 75; RESP 18; TEMP 36.6; O2SAT 96
[2023-01-31 18:33] LABS: Levetiracetam Keppra <2.0 mcg/mL (6.0-46.0)
== END 2023-01-30 16:33 | DRG 101 ==
LOC: HO.ED 07:48 → HO.EDOVER 10:40 → HO.IMC 11:54
PROVIDERS: Admitting Provider Hospitalist; Emergency Provider Emergency Medicine; PCP Hospitalist; Visit Provider Family Medicine
DX: G40.911 Epilepsy, unspecified, intractable, with status epilepticus (principal); F31.9 Bipolar disorder, unspecified; F10.11 Alcohol abuse, in remission; Z20.822 Contact with and (suspected) exposure to COVID-19; Z87.820 Personal history of traumatic brain injury; Z91.148 Patient's other noncompliance with medication regimen for other reason; Z79.82 Long term (current) use of aspirin; Z79.890 Hormone replacement therapy; Z79.899 Other long term (current) drug therapy
CPT/HCPCS: 0241U; 36415; 70450; 71045; 80048; 80053; 80076; 80164; 80177; 81001; 82550; 82947; 83605; 83690; 83880; 84484; 85025; 87040; 93005; 94002; 99285; C1758; J0330; J1953; J2250; J2251; J2543

== ENCOUNTER 2023-07-06 14:02 | Emergency (ER) | payer MEDICARE, MEDICAID, SELFPAY ==
--- NOTE | ~2023-07-06 | XR_ITS ---
EXAMINATION: XR HAND, RIGHT CLINICAL INFORMATION: Bruising and pain COMPARISON: None available. TECHNIQUE: PA, lateral, and oblique views of the right hand. FINDINGS: The bones and soft tissues are normal. No fracture. Alignment is anatomic. Joint spaces are maintained. No erosions or soft tissue calcifications. XR/XR hand RT min 3V IMPRESSION: Unremarkable plain radiographs of the right hand.
[2023-07-06 14:17] VITALS: BP 128/70; PULSE 75; O2SAT 98; BMI 25.1
--- NOTE | 2023-07-06 14:20 | PC.NURSE ---
alert and oriented to self/place/situation only. pt unaware on what year it is. pt [facility]t contusion on top of right hand. no swelling noted. pt denies pain. cms intact. 2+ pulses palpable. nontender upon palpation. no sob/wob noted at this time. respirations remain even and unlabored. pt awaiting xray at this time. call mclain placed within reach.
--- NOTE | 2023-07-06 14:21 | ED.GENADULT ---
HPI - General Adult General Chief complaint: General Medical Stated complaint: BRUISE R HAND,UNK MECH FROM SNF PER EMS Time Seen by Provider: 07/06/23 14:21 Source: patient and EMS Mode of arrival: EMS Limitations: no limitations History of Present Illness HPI narrative: Patient is a 63 year old assigned female at with a history of bipolar disorder and seizures presenting to the emergency department today with a right hand bruise. Patient states that he woke up with a bruise on his right hand. SNF staff states that they are unsure what the bruise is from and would like the patient to get an x-ray. Patient denies any dizziness, lightheadedness, abdominal pain, nausea, vomiting, fever, chills, blurry vision, double vision, loss of vision, chest pain, difficulty breathing, shortness of breath, back pain, night sweats, pain with urination, increased urinary frequency, increased urinary urgency, blood in his urine or stool, syncope or a near syncopal episode, bowel incontinence, bladder incontinence, bowel retention, bladder retention, or any other complaints at this time. Onset (ago): hour(s) Location: right and upper extremity Radiation: non-radiation Severity: mild Severity scale (1-10): 3 Relieving factors: none Exacerbating factors: none Associated symptoms: denies other symptoms Treatments prior to arrival: none Related Data Home Medications Medication Instructions Recorded Confirmed acetaminophen 325 mg tablet 650 mg PO Q4H PRN Fever Or Pain 01/29/23 01/29/23 aripiprazole 2 mg tablet 3 mg PO DAILY 01/29/23 01/29/23 aspirin 81 mg chewable tablet 81 mg PO DAILY 01/29/23 01/29/23 bisacodyl 10 mg rectal suppository 10 mg [place] DAILY PRN Constipation 01/29/23 01/29/23 brimonidine 0.2 % eye drops 1 drp ophthalmic (eye) BID 01/29/23 01/29/23 divalproex 125 mg tablet,delayed 125 mg PO BID 01/29/23 01/29/23 release divalproex 250 mg tablet,delayed 250 mg PO BID 01/29/23 01/29/23 release dorzolamide 2 % eye drops 1 drp ophthalmic (eye) BID 01/29/23 01/29/23 fluoride (sodium) 15 ml dental BID 01/29/23 01/29/23 fluoride (sodium) 1.1 % dental 1 appl dental BEDTIME 01/29/23 01/29/23 paste (PreviDent 5000 Booster Plus) lactulose 10 gram/15 mL oral 60 ml PO TID 01/29/23 01/29/23 solution levothyroxine 50 mcg tablet 50 mcg PO DAILY 01/29/23 01/29/23 omega-3 fatty acids 1,000 mg PO DAILY 01/29/23 01/29/23 sennosides 8.6 mg tablet (senna) 8.6 mg PO DAILY PRN Constipation 01/29/23 01/29/23 sodium phosphates 19 gram-7 118 ml [place] DAILY PRN Constipation 01/29/23 01/29/23 gram/118 mL enema (Fleet Enema) timolol maleate 0.5 % eye drops 1 drp ophthalmic (eye) BID 01/29/23 01/29/23 Previous Rx's Medication Instructions Recorded levetiracetam 1,000 mg tablet 1,000 mg PO BID #60 tabs 01/30/23 Allergies Allergy/AdvReac Type Severity Reaction Status Date / Time scallops Allergy Mild UNKNOWN Verified 07/06/23 14:17 shellfish derived Allergy Mild UNKNOWN Verified 07/06/23 14:17 [SHELLFISH DERIVED] TUNA FISH Allergy Mild UNKNOWN Uncoded 07/06/23 14:17 Review of Systems Constitutional: Constitutional: Reports no additional constitutional complaints, Denies chills, Denies fever(s) and Denies night sweats Eyes: Eyes: Reports no additional eye complaints, Denies blurry vision, Denies change in vision, Denies diplopia, Denies eye discharge, Denies loss of vision and Denies eye pain ENT: Denies dizziness Cardiovascular: Cardiovascular: Reports no additional cardiovascular complaints, Denies chest pain, Denies lightheadedness, Denies Loss of Consciousness and Denies dyspnea Respiratory: Respiratory: Reports no additional respiratory complaints and Denies dyspnea Gastrointestinal: Gastrointestinal: Reports no additional gastrointestinal complaints, Denies abdominal pain, Denies melena, Denies hematochezia, Denies change in bowel habits and Denies change in stool character Genitourinary: Genitourinary: Reports no additional male genitourinary complaints, Denies hematuria, Denies oliguria, Denies difficulty urinating, Denies dysuria, Denies urinary frequency, Denies urinary hesitancy, Denies urinary incontinence and Denies urinary urgency Musculoskeletal: Musculoskeletal: Reports no additional musculoskeletal complaints, Denies numbness and Denies tingling Comments: right hand bruise Neurologic: Denies dizziness, Denies loss of vision, Denies numbness and Denies tingling Psychiatric: Psychiatric: Reports no additional psychiatric complaints Endocrine: Endocrine: Reports no additional endocrine complaints Hematologic/Lymphatic: Hematologic/Lymphatic: Reports no additional hematologic/lymphatic complaints Allergic/Immunologic: Allergic/Immunologic: Reports no additional allergic/immunologic complaints [facility] Past Medical History Attestation statement: The following information was validated with the patient. Source: old records reviewed and nursing notes reviewed Medical History Breakthrough seizure Seizure disorder Bipolar 1 disorder History of traumatic brain injury Status epilepticus Social History Social History Household Members: Unknown / Unable to assess Housing: Other Housing Other:: [facility] Do you presently have visiting nurse or other home services: No Patient Tobacco Use Status: Never used Tobacco Smoked in Last 30 Days: No e-Cigarette/Vaping Use: Never Used Use of substances other than those prescribed or required for medical reasons: No Advance Directives: No Advance Directives Information Provided: No service: No Physical Exam ED Vital Signs: Vital Signs - 24 hr 07/06/23 14:22 Temperature 98.7 F Pulse Rate 73 Respiratory Rate 16 Blood Pressure 156/79 H Pulse Oximetry 98 Oxygen Delivery Method Room Air BMI result Body Mass Index 25.1 Const General: cooperative, no acute distress, alert and awake Nutritional Appearance: well nourished Orientation/consciousness: patient oriented x3 Limitations: no limitations [facility] Head: Yes normal to inspection and Yes atraumatic Ears: hearing grossly normal bilaterally and external ears normal General nose exam: Normal external nose present, no nasal discharge noted and no epistaxis Face and sinus: Yes normal facial exam, No abrasion and No laceration Mouth: Normal oral and palatal mucosa present, no drooling and no muffled voice Eyes General: appearance normal, both eyes and all related structures Periorbital: periorbital findings normal Eyelids: Yes eyelids normal Conjunctivae: conjunctivae normal Pupils: Equal, round and reactive pupils present EOM: EOMs intact bilaterally Neck Neck: Yes normal visual inspection, Yes full ROM and Yes no lymphadenopathy Chest Chest palpation & inspection: normal inspection of the chest Resp Effort & Inspection: normal respiratory effort and able to speak in complete sentences GI Inspection: Yes normal to inspection Neuro General: patient oriented x3 and moves all extremities Cranial nerves: Yes Equal, round and reactive pupils present Cognition (Neuro): normal cognition Motor exam (neuro): 5/5 motor strength present throughout Sensory Exam: Normal double simultaneous stimulation for sensation Coordination: [id number] test normal Extrem Other: small bruise to the dorsal aspect of the right hand over the 4th and 5th digits General: Yes full ROM and Yes capillary refill normal Psych Appearance: grossly normal Mental Status: mental status grossly normal Affect: normal affect Attitude: cooperative Thought process: Normal thought process present Thought content: Normal thought content present Insight: Good insight present (Psych) Medical Decision Making Medical Decision Making MDM Narrative: Patient is a 63 year old assigned male at with a history of seizures and bipolar disorder presenting to the emergency department today with a right hand bruise. Patient's physical exam was as noted in the physical exam portion of this note. Patient did not have any pain with movement or palpation of the right hand. Patient's right hand x-ray showed no acute process. I explained my physical exam findings as well as all test results to the patient. I answered all questions asked by the patient. I stressed the importance of the patient taking his medication as prescribed. I stressed the importance of the patient following up with his primary care provider. I stressed the importance of the patient returning to the emergency department immediately if his symptoms were to worsen or if he were to develop any dizziness, shortness of breath, difficulty breathing, chest pain, blurry vision, loss of vision, nausea, vomiting, abdominal pain, fever, chills, back pain, or any other complaints. Patient verbalized agreement and understanding with this treatment plan and discharge. Differential Diagnosis Differential Diagnoses: The differential diagnosis associated with the presentation includes Hand sprain Hand strain Hand contusion Hand fracture Independent Interpretation I performed an independent interpretation of an: Plain X-Ray Interpretation: My interpretation is in agreement with the radiologist's impression of this imaging study. EXAMINATION: XR HAND, RIGHT CLINICAL INFORMATION: Bruising and pain COMPARISON: None available. TECHNIQUE: PA, lateral, and oblique views of the right hand. FINDINGS: The bones and soft tissues are normal. No fracture. Alignment is anatomic. Joint spaces are maintained. No erosions or soft tissue calcifications. XR/XR hand RT min 3V IMPRESSION: Unremarkable plain radiographs of the right hand. Dictated By: Mateus Oneill MD Signed By: Electronically signed by Mateus Oneill MD 07/06/23 8099 Independent Historian Clinical information obtained from an independent historian. History obtained from or confirmed by: EMS (EMS provided additional history and confirmed the history provided by the patient.) Discharge Plan Discharge Clinical Impression: Contusion Patient Disposition: Home, Self-Care Instructions: Hematoma (ED) Additional Instructions: Follow up with your primary care provider. Return to the emergency department immediately if your symptoms worsen or if you develop any dizziness, shortness of breath, difficulty breathing, chest pain, blurry vision, loss of vision, nausea, vomiting, abdominal pain, fever, chills, back pain, or any other complaints. Prescriptions: No Action sennosides [senna] 8.6 mg Tablet 8.6 mg PO DAILY PRN (Reason: Constipation) acetaminophen 325 mg Tablet 650 mg PO Q4H PRN (Reason: Fever Or Pain) divalproex 250 mg Tablet,Delayed Release (Dr/Ec) 250 mg PO BID levothyroxine 50 mcg Tablet 50 mcg PO DAILY bisacodyl 10 mg Suppository 10 mg [place] DAILY PRN (Reason: Constipation) Rx Instructions: use if senna is ineffective brimonidine 0.2 % Drops 1 drp OPHTHALMIC (EYE) BID Rx Instructions: administer approximately 8 hours apart divalproex 125 mg Tablet,Delayed Release (Dr/Ec) 125 mg PO BID Fleet Enema 19-7 gram/118 mL Enema 118 ml [place] DAILY PRN (Reason: Constipation) Rx Instructions: use is Biscodyl ineffective timolol maleate 0.5 % Drops 1 drp OPHTHALMIC (EYE) BID dorzolamide 2 % drops 1 drp ophthalmic (eye) BID omega-3 fatty acids Capsule 1,000 mg PO DAILY lactulose 10 gram/15 mL Solution 60 ml PO TID aripiprazole 2 mg Tablet 3 mg PO DAILY fluoride (sodium) [PreviDent 5000 Booster Plus] 1.1 % Paste 1 appl DENTAL BEDTIME fluoride (sodium) 0.02 % (0.044 % sod. fluoride) Solution 15 ml DENTAL BID aspirin 81 mg Tablet,Chewable 81 mg PO DAILY levetiracetam 1,000 mg tablet 1,000 mg PO BID Qty: 60 0RF Rx Instructions: replaces prior dose 750 mg bid Referrals: [facility] Family Medicine [Provider Group] (Call to establish and follow up with a primary care provider. If you already have a primary care provider, please follow up with them.) [facility] Primary Care, Anyi [Provider Group] (Call to establish and follow up with a primary care provider. If you already have a primary care provider, please follow up with them.) [facility] Primary Care,Barbara [Provider Group] (Call to establish and follow up with a primary care provider. If you already have a primary care provider, please follow up with them.) Print Language: Lao
[2023-07-06 14:22] VITALS: BP 156/79; PULSE 73; RESP 16; TEMP 37.1; O2SAT 98
--- NOTE | 2023-07-06 15:12 | PC.NURSE ---
this RN called to give report to the RN at [facility] - service secretary notified that pt is ready to be transported back to facility via BLS.
--- NOTE | 2023-07-06 17:11 | PC.NURSE ---
resting comfortably in stretcher in no apparent distress. respirations remain even and unlabored.
--- NOTE | 2023-07-06 19:38 | PC.NURSE ---
pt continues to rest in no apparent distress. pt still awaiting transportation via BLS at this time. this RN spoke w/ statistical secretary and she is reaching out transportation again at this time.
--- NOTE | 2023-07-06 19:50 | PC.NURSE ---
report given to EMS at this time. pt leaving facility via BLS.
== END 2023-07-06 19:50 | disposition home or self-care (01) ==
PROVIDERS: Emergency Provider Emergency Medicine
DX: S60.221A Contusion of right hand, initial encounter (principal); M79.641 Pain in right hand; X58.XXXA Exposure to other specified factors, initial encounter; Y93.9 Activity, unspecified; Y92.9 Unspecified place or not applicable; Y99.9 Unspecified external cause status; Z79.899 Other long term (current) drug therapy
CPT/HCPCS: 73130; 99283; 99284

== ENCOUNTER 2023-10-14 08:24 | Emergency (ER) | payer MEDICARE, MEDICAID, SELFPAY ==
[2023-10-14] VITALS (9 sets, daily range): BP systolic 74–127; BP diastolic 50–78; PULSE 77–98; RESP 16–20; TEMP 36.2–37.8; O2SAT 2–99; BMI 29.5
--- NOTE | ~2023-10-14 | XR_ITS ---
EXAMINATION: XR CHEST CLINICAL INFORMATION: Shortness of breath COMPARISON: Chest radiograph from 01/29/2023 TECHNIQUE: Frontal view of the chest was obtained. FINDINGS: Slight elevation the right hemidiaphragm. Interstitial prominence. Slight bronchial thickening which can be seen in setting of infectious/inflammatory etiology. No pneumothorax. Trachea is midline. Cardiac mediastinal silhouette is stable. No large pleural effusion. Osseous structures are intact. Soft tissues are unremarkable. XR/XR chest 1V IMPRESSION: 1. Slight elevation the right hemidiaphragm. 2. Interstitial prominence. 3. Slight bronchial thickening which can be seen in setting of infectious/inflammatory etiology.
--- NOTE | 2023-10-14 08:50 | ECG_ITS ---
Test Reason : SEIZURE Blood Pressure : / mmHG Vent. Rate : 086 BPM Atrial Rate : 086 BPM P-R Int : 124 ms QRS Dur : 082 ms QT Int : 336 ms P-R-T Axes : 043 056 055 degrees QTc Int : 402 ms Poor data quality Normal sinus rhythm Normal ECG When compared with ECG of 29-JAN-2023 07:19, Non-specific change in ST segment in Inferior leads ST no longer depressed in Lateral leads Nonspecific T wave abnormality no longer evident in Inferior leads Referred By: Josee Vega Electronically Signed By:BELIA LEE MD
--- NOTE | 2023-10-14 09:01 | ED_ITS ---
HPI - Seizure General Chief Complaint: Seizure Stated Complaint: MULTI SZ THIS AM PER EMS Time Seen by Provider: 10/14/23 08:49 Source: patient, EMS and other Mode of arrival: EMS History of Present Illness HPI Narrative: 63-year-old male with history of seizures from a long-term care facility is brought in by EMS for breakthrough seizures that were reported by staff to be multiple in nature prior to EMS arrival and then when EMS arrived they witnessed an additional seizure and gave additional Versed of 2 mg IM in addition to the facility having given the patient 1 mg of Ativan. At the time of my assessment patient is verbally responding and also has a significant history of TBI/bipolar 1 disorder. Related Data Home Medications Medication Instructions Recorded Confirmed acetaminophen 325 mg tablet 650 mg PO Q4H PRN Fever Or Pain 01/29/23 01/29/23 aripiprazole 2 mg tablet 3 mg PO DAILY 01/29/23 01/29/23 aspirin 81 mg chewable tablet 81 mg PO DAILY 01/29/23 01/29/23 bisacodyl 10 mg rectal suppository 10 mg NJ DAILY PRN Constipation 01/29/23 01/29/23 brimonidine 0.2 % eye drops 1 drp ophthalmic (eye) BID 01/29/23 01/29/23 divalproex 125 mg tablet,delayed 125 mg PO BID 01/29/23 01/29/23 release divalproex 250 mg tablet,delayed 250 mg PO BID 01/29/23 01/29/23 release dorzolamide 2 % eye drops 1 drp ophthalmic (eye) BID 01/29/23 01/29/23 fluoride (sodium) 15 ml dental BID 01/29/23 01/29/23 fluoride (sodium) 1.1 % dental 1 appl dental BEDTIME 01/29/23 01/29/23 paste (PreviDent 5000 Booster Plus) lactulose 10 gram/15 mL oral 60 ml PO TID 01/29/23 01/29/23 solution levothyroxine 50 mcg tablet 50 mcg PO DAILY 01/29/23 01/29/23 omega-3 fatty acids 1,000 mg PO DAILY 01/29/23 01/29/23 sennosides 8.6 mg tablet (senna) 8.6 mg PO DAILY PRN Constipation 01/29/23 01/29/23 sodium phosphates 19 gram-7 118 ml NJ DAILY PRN Constipation 01/29/23 01/29/23 gram/118 mL enema (Fleet Enema) timolol maleate 0.5 % eye drops 1 drp ophthalmic (eye) BID 01/29/23 01/29/23 Previous Rx's Medication Instructions Recorded levetiracetam 1,000 mg tablet 1,000 mg PO BID #60 tabs 01/30/23 Allergies Allergy/AdvReac Type Severity Reaction Status Date / Time scallops Allergy Mild UNKNOWN Verified 07/06/23 14:17 shellfish derived Allergy Mild UNKNOWN Verified 07/06/23 14:17 [SHELLFISH DERIVED] TUNA FISH Allergy Mild UNKNOWN Uncoded 07/06/23 14:17 Review of Systems 2 Review of Systems: Pertinent positives and negatives as stated in HPI PMFSH Past Medical History Source: nursing notes reviewed Medical History Breakthrough seizure Seizure disorder Bipolar 1 disorder History of traumatic brain injury Status epilepticus Social History Social History Household Members: Unknown / Unable to assess Housing: Other Housing Other:: [facility] Do you presently have visiting nurse or other home services: No Unable to assess alcohol history related to: Unknown Patient Tobacco Use Status: Never used Tobacco Smoked in Last 30 Days: No e-Cigarette/Vaping Use: Never Used Use of substances other than those prescribed or required for medical reasons: Unknown Advance Directives: No Advance Directives Information Provided: No service: No Physical Exam 2 Vital Signs: Vital Signs: Last Vital Signs Temp 100.1 F 10/14/23 09:04 Pulse 79 10/14/23 10:30 Resp 20 10/14/23 10:30 BP 127/73 10/14/23 10:30 Pulse Ox 95 10/14/23 11:11 O2 Del Method Room Air 10/14/23 11:11 O2 Flow Rate 4 10/14/23 10:43 Oxygen Flow Rate 2 10/14/23 08:44 BMI result Body Mass Index 29.5 VITAL SIGNS: Reviewed. GENERAL: Well developed, well nourished, in no acute distress. HEAD: Normocephalic/atraumatic EYES: PERRLA, EOMI EARS: Ext canals without abnormality NOSE: Nares patent bilateral OROPHARYNX: no oral lesions noted, posterior pharynx clear NECK: Supple, no adenopathy LUNGS: Normal breath sounds, no wheeze/rhonchi/rales and no increased work of breathing. SpO2<90> on OxyMask CARDIOVASCULAR: Regular rate and rhythm without noted murmurs ABDOMEN: Soft, non-tender, non-distended with bowel sounds. MUSCULOSKELETAL: No tenderness, deformities, or effusions noted on gross inspection. EXTREMITIES: No cyanosis, clubbing or edema. SKIN: Inspection of the skin reveals no rashes NEUROLOGIC: Drowsy (postictal) and oriented x 3. Strength and sensation to light touch were grossly intact x 4. Medications Administered Generic Name Dose Route Start Last Admin Trade Name Freq PRN Reason Stop Dose Admin Valproic Acid 1,000 mg/ 60 mls @ 60 mls/hr 10/14/23 10:45 10/14/23 11:17 Dextrose IV 60 mls/hr ONCE VANNA Administration Discontinued Medications Generic Name Dose Route Start Last Admin Trade Name Freq PRN Reason Stop Dose Admin Sodium Chloride 1,000 mls @ 999 mls/hr 10/14/23 09:15 10/14/23 10:30 Ns IV 10/14/23 10:15 Infused .Q1H1M VANNA Infusion Medical Decision Making Medical Decision Making [facility] Narrative: 0900: 63-year-old male with history and clinical presentation, DDX: Infectious/anemia/electrolyte derangement or subtherapeutic anti seizure medication as etiologies for multiple breakthrough seizures. INTERVENTION: Patient noted to be hypoxic and hypotensive on arrival and suspect that this is secondary to the amount of benzos that he received for his seizures, supplemental oxygen applied with good response and IV fluids started and good response with blood pressure increasing. I reviewed all investigations and re-evaluated the patient. Hematologic indices negative for leukocytosis/anemia/thrombocytopenia. Chemistries to seize do not demonstrate an FELA or electrolyte/liver enzyme derangements and BNP is noted be within normal limits. Urinalysis negative for UTI or hematuria. Valproic acid noted to be subtherapeutic and patient received 1000 mg IV, Keppra level is pending and should be followed up by the facility. Urine drug tox is significant for the benzodiazepines that patient received. Viral testing negative for influenza/RSV/COVID. Chest x-ray demonstrates some bronchial wall inflammation though viral testing is negative and no evidence to suggest a pneumonia, however suspect that these findings may be secondary to patient's multiple seizures and I have no clinical suspicion for pneumonia at this time. On re-evaluation patient has been titrated off of oxygen in suspect that he required this in the short term due to benzodiazepines, also blood pressure has significantly improved and my interpretation is it patient is subtherapeutic on anti seizure medications and should undergo close monitoring for repeat drug levels as well as compliance with his medication. Differential Diagnosis Differential Diagnoses: The differential diagnosis associated with the presentation includes Please see the discussion above Admission/Observation Consideration of admission/observation: Escalation of care including admission/observation considered Please see the discussion above Lab Data MDM Lab Attestation statement: I reviewed the patient's lab results. Please see the discussion above 10/14/23 09:16 10/14/23 09:16 Labs: Lab Results 10/14/23 10/14/23 Range/Units 09:16 10:22 WBC 10.5 (4.8-10.8) X10*3/uL RBC 4.69 (4.60-5.80) X10*6/uL Hgb 14.5 (14.0-18.0) g/dl Hct 41.9 L (42.0-52.0) % MCV 89.3 (80.0-98.0) fL MCH 30.9 (27.0-33.0) pg MCHC 34.6 (31.0-36.0) g/dl RDW 11.9 (11.0-16.0) % Plt Count 216 (160-400) X10*3/uL MPV 8.5 L (9.4-12.4) fL Immature Gran % (Auto) 1.6 H (0.0-0.4) % Neut % (Auto) 84.5 H (45-73) % Lymph % (Auto) 6.1 L (20-40) % [place] % (Auto) 7.4 (2-11) % Eos % (Auto) 0.2 (0-4) % Baso % (Auto) 0.2 (0-2) % Lymph # (Auto) 0.6 L (1.2-4.9) X10*3/uL [place] # (Auto) 0.8 (0.1-1.2) X10*3/uL Eos # (Auto) 0.0 (0.0-0.4) X10*3/uL Baso # (Auto) 0.0 (0.0-0.2) X10*3/uL Abs Immat Gran (auto) 0.17 H (0.00-0.03) X10*3/uL Absolute Neuts (auto) 8.9 H (2.0-8.3) x10*3/uL Absolute Nucleated RBC 0.000 (0.0-0.012) X10*3/uL Nucleated RBC % (auto) 0.0 (0.0-0.2) /100WBC Sodium 137 (135-145) mmol/L Potassium 3.9 (3.3-5.1) mmol/L Chloride 108 (96-108) mmol/L Carbon Dioxide 19 L (22-29) mmol/L Anion Gap 14 (12-20) BUN 10 (9-16) mg/dL Creatinine 0.83 (0.5-1.4) mg/dL Estim Creat Clear Calc 102.7 Estimated GFR > 60 Random Glucose 131 H (60-115) mg/dL Calcium 8.7 D (8.4-10.2) mg/dL Total Bilirubin 0.3 (0.0-1.0) mg/dL AST 12 (5-37) U/L ALT 15 (0-40) U/L Alkaline Phosphatase 81 (39-117) U/L B-Natriuretic Peptide 22 (<100) pg/mL Total Protein 6.8 (6.5-8.0) g/dL Albumin 3.7 (3.5-5.0) g/dL Urine Color Yellow Urine Appearance Clear Urine pH 7.0 (5.0-9.0) Ur Specific [place] 1.015 (1.005-1.025) Urine Protein 30 (1+) H (Neg-Trace) mg/dL Urine Glucose (UA) Negative (Negative) mg/dL Urine Ketones Negative (Negative) mg/dL Urine Blood Negative (Negative) Urine Nitrite Negative (Negative) Ur Leukocyte Esterase Negative (Negative) Urine RBC 0-2 (0-2) /HPF Urine WBC 0-5 (0-5) /HPF Ur Squamous Epith Cells 0-2 (0-2) /HPF Urine Bacteria None Seen (None Seen) Hyaline Casts 3-5 (0-2) /LPF Urine Opiates Screen Not Detected (Not Detect) Urine Fentanyl Screen Not Detected (Not Detect) Ur Barbiturates Screen Not Detected (Not Detect) Valproic Acid 15.1 L (50.0-100.0) mcg/mL Ur Phencyclidine Scrn Not Detected (Not Detect) Ur Amphetamines Screen Not Detected (Not Detect) U Benzodiazepines Scrn POSITIVE H (Not Detect) Urine Cocaine Screen Not Detected (Not Detect) U Marijuana (THC) Screen Not Detected (Not Detect) Ethyl Alcohol < 10 mg/dL Influenza Type A (PCR) NEGATIVE (Negative) Influenza Type B (PCR) NEGATIVE (Negative) RSV RNA Qual (PCR) NEGATIVE (Negative) SARS-CoV-2 RNA (RT-PCR) NEGATIVE (Negative) Independent Interpretation I performed an independent interpretation of an: EKG Interpretation: Normal sinus rhythm, HR-86, no STEMI, NJ/QRS/QTC is within normal limits. Radiology Impression Discussion of test interpretation with radiology: I have reviewed the radiologist's reading. Radiologist Impression: Please see the discussion above External Record Review External record reviewed: Outpatient record, Prior outpatient labs and Prior outpatient radiology Chronic Conditions TBI, seizures Critical Care Time Critical Care Time Critical Care Time: Yes Total Critical Care Time: 60 Attestation: I personally attest to this time spent taking care of the patient. Discharge Plan Discharge Clinical Impression: Recurrent seizures Patient Disposition: Still a Patient Instructions: Recurrent Seizures in Adults (ED) Additional Instructions: 1. Facility needs to ensure that this patient is compliant with his seizure medication as his valproic acid is noted to be subtherapeutic and he was loaded with 1000 mg IV here in the emergency room. 2. Supervising clinician needs to follow-up on this patient within the next 1 to 2 days. Please follow-up on Keppra level and obtain additional valproic acid levels. Prescriptions: No Action sennosides [senna] 8.6 mg Tablet 8.6 mg PO DAILY PRN (Reason: Constipation) acetaminophen 325 mg Tablet 650 mg PO Q4H PRN (Reason: Fever Or Pain) divalproex 250 mg Tablet,Delayed Release (Dr/Ec) 250 mg PO BID levothyroxine 50 mcg Tablet 50 mcg PO DAILY bisacodyl 10 mg Suppository 10 mg NJ DAILY PRN (Reason: Constipation) Rx Instructions: use if senna is ineffective brimonidine 0.2 % Drops 1 drp OPHTHALMIC (EYE) BID Rx Instructions: administer approximately 8 hours apart divalproex 125 mg Tablet,Delayed Release (Dr/Ec) 125 mg PO BID Fleet Enema 19-7 gram/118 mL Enema 118 ml NJ DAILY PRN (Reason: Constipation) Rx Instructions: use is Biscodyl ineffective timolol maleate 0.5 % Drops 1 drp OPHTHALMIC (EYE) BID dorzolamide 2 % drops 1 drp ophthalmic (eye) BID omega-3 fatty acids Capsule 1,000 mg PO DAILY lactulose 10 gram/15 mL Solution 60 ml PO TID aripiprazole 2 mg Tablet 3 mg PO DAILY fluoride (sodium) [PreviDent 5000 Booster Plus] 1.1 % Paste 1 appl DENTAL BEDTIME fluoride (sodium) 0.02 % (0.044 % sod. fluoride) Solution 15 ml DENTAL BID aspirin 81 mg Tablet,Chewable 81 mg PO DAILY levetiracetam 1,000 mg tablet 1,000 mg PO BID Qty: 60 0RF Rx Instructions: replaces prior dose 750 mg bid
--- NOTE | 2023-10-14 09:09 | PC.NURSE ---
Addendum entered by Alycia Moreno 10/14/23 09:33: seizure precautions in place Breathing is non labored and even despite hypoxia. 94% on 7lpm via oxymask Original Note: Pt postictial but will answer some yes or no questions but falls asleep easily. NSR on monitor. Hypoxic, increased to 7lpm via oxymask with sat 92%. Fluids infusing. Skin pwd. Afebrile temp 100.1. Side rails padded
[2023-10-14 09:21] LABS: MANUAL DIFF FLAG NO
[2023-10-14 09:23] LABS: Basophils Percent Auto 0.2 % (0-2); Eosinophils Percent Auto 0.2 % (0-4); Hematocrit 41.9 % (42.0-52.0); Hemoglobin 14.5 g/dl (14.0-18.0); Imm Gran Abs Auto 0.17 X10*3/uL (0.00-0.03); Imm Gran Pct Auto 1.6 % (0.0-0.4); Lymphocytes Absolute Auto 0.6 X10*3/uL (1.2-4.9); Lymphocytes Percent Auto 6.1 % (20-40); Mean Corpuscular HGB Conc 34.6 g/dl (31.0-36.0); Mean Corpuscular Hemoglobin 30.9 pg (27.0-33.0); Mean Corpuscular Volume 89.3 fL (80.0-98.0); Mean Platelet Volume 8.5 fL (9.4-12.4); Monocytes Absolute Auto 0.8 X10*3/uL (0.1-1.2); Monocytes Percent Auto 7.4 % (2-11); Neutrophils Absolute Auto 8.9 x10*3/uL (2.0-8.3); Neutrophils Percent Auto 84.5 % (45-73); Platelet Count 216 X10*3/uL (160-400); Red Blood Count 4.69 X10*6/uL (4.60-5.80); Red Cell Distribution Width 11.9 % (11.0-16.0); White Blood Count 10.5 X10*3/uL (4.8-10.8)
[2023-10-14] MEDS: 0.9 % Sodium Chloride 1,000 ML 999 ML IV (09:23)
[2023-10-14 10:00] LABS: Influenza A PCR NEGATIVE (Negative); Influenza B PCR NEGATIVE (Negative); Resp Syncy Virus RNA Qual PCR NEGATIVE (Negative); SARS COV2 PCR INHOUSE NEGATIVE (Negative)
[2023-10-14 10:03] LABS: Valproate 15.1 mcg/mL (50.0-100.0)
[2023-10-14 10:05] LABS: Alanine Aminotransferase 15 U/L (0-40); Albumin Level 3.7 g/dL (3.5-5.0); Alkaline Phosphatase 81 U/L (39-117); Anion Gap 14 (12-20); Aspartate Amino Transferase 12 U/L (5-37); Bilirubin Total 0.3 mg/dL (0.0-1.0); Blood Urea Nitrogen 10 mg/dL (9-16); Calcium 8.7 mg/dL (8.4-10.2); Carbon Dioxide 19 mmol/L (22-29); Chloride 108 mmol/L (96-108); Creatinine Clr Calc Pharmacy 102.7; Estimated Glomerular Filt Rate > 60; Glucose Random 131 mg/dL (60-115); Potassium 3.9 mmol/L (3.3-5.1); Sodium 137 mmol/L (135-145); Total Protein 6.8 g/dL (6.5-8.0)
[2023-10-14 10:21] LABS: Ethanol < 10 mg/dL
[2023-10-14 10:30] LABS: Appearance Urine Clear; Color Urine Yellow; Glucose Urine UA Negative (Negative); Leukocyte Esterase Urine Negative (Negative); Nitrite Urine Negative (Negative); Specific Gravity - Urine 1.015 (1.005-1.025); UMIC TRIGGER UACC YES; Urine Blood Negative (Negative); Urine Ketones Negative (Negative); Urine Protein 30 (1+) mg/dL (Neg-Trace)
--- NOTE | 2023-10-14 10:31 | PC.NURSE ---
Pt attempting to get OOB, needs reminders frequently, assisted to void in urinal and Urine spec sent. VSS but remains on Oxy mask at 7lpm via nc sat 97%, no diff breathing noted and NSR on tele.
--- NOTE | 2023-10-14 10:32 | PC.NURSE ---
Awaiting depakote from pharmacy
[2023-10-14 10:35] LABS: Bacteria Urine None Seen (None Seen); RBC Urine 0-2 /HPF (0-2); Squamous Epithelial Cell Urine 0-2 /HPF (0-2); WBC Urine 0-5 /HPF (0-5)
--- NOTE | 2023-10-14 10:42 | PC.NURSE ---
Titrating 02 down, 99% on 4lpm via oxymask, will titrate to 2lpm
--- NOTE | 2023-10-14 11:10 | PC.NURSE ---
Pt sat 100% on 2lpm, 02 has been removed and sat 95% on room air
--- NOTE | 2023-10-14 11:11 | PC.NURSE ---
More more alert and awake, answering questions. Pt is oriented to self only and still needs frequent reminders to redirect
[2023-10-14 11:13] LABS: Amphetamine Screen Urine Not Detected (Not Detect); Barbiturates, Urine Not Detected (Not Detect); Benzodiazepines Screen Urine POSITIVE (Not Detect); Cannabinoid Screen Urine Not Detected (Not Detect); Cocaine Screen Urine Not Detected (Not Detect); Fentanyl, urine Not Detected (Not Detect); Opiate Screen Urine Not Detected (Not Detect); Phencyclidine Screen Urine Not Detected (Not Detect)
[2023-10-14] MEDS: Valproic Acid (as Sodium Salt) 1,000 MG in Dextrose 5 % 50 ML 60 MG IV (11:17)
[2023-10-14 11:27] LABS: B Type Natriuretic Peptide 22 pg/mL (<100)
--- NOTE | 2023-10-14 11:37 | PC.NURSE ---
Pt increasingly agitated, and exit seeking. Remains only oriented to self.
--- NOTE | 2023-10-14 12:31 | PC.NURSE ---
Pt pulled out IV in agitation, now restful. Depakote was completed.
--- NOTE | 2023-10-14 13:53 | PC.NURSE ---
Report given to Jessica White, pt awaiting transport
[2023-10-17 14:38] LABS: Levetiracetam Keppra <2.0 mcg/mL (6.0-46.0)
== END 2023-10-14 16:38 ==
PROVIDERS: Emergency Provider Student in an Organized Health Care Education/Training Program
DX: G40.909 Epilepsy, unspecified, not intractable, without status epilepticus (principal); Z79.899 Other long term (current) drug therapy; Z03.818 Encounter for observation for suspected exposure to other biological agents ruled out
CPT/HCPCS: 0241U; 36415; 71045; 80053; 80164; 80177; 80307; 81001; 83880; 85025; 93005; 96361; 96365; 99284; 99285

== ENCOUNTER → 2023-10-14 08:50 | Outpatient (BNV) | payer MEDICARE, MEDICAID, SELFPAY | PROVIDERS: Emergency Provider Student in an Organized Health Care Education/Training Program; Visit Provider Internal Medicine Cardiovascular Disease | DX: G40.89 Other seizures (principal) | CPT/HCPCS: 93010 ==

== ENCOUNTER 2023-12-09 04:35 | Inpatient (IN) | payer MEDICARE, MEDICAID, SELFPAY ==
[2023-12-09] VITALS (10 sets, daily range): BP systolic 111–156; BP diastolic 62–85; PULSE 71–117; RESP 15–28; TEMP 37–38.2; O2SAT 89–99; BMI 35.8
--- NOTE | ~2023-12-09 | CT_ITS ---
EXAMINATION: CT HEAD WITHOUT CONTRAST CLINICAL INFORMATION: Fall, multiple seizures COMPARISON: 01/29/2023 TECHNIQUE: Contiguous axial imaging was performed from the skull base to vertex without intravenous administration of contrast. This CT examination was performed using dose optimization techniques as appropriate, variously including the following: *Automated exposure control *Adjustment of mA and/or kV according to patient size (this includes techniques or standardized protocols for targeted exams where dose is matched to indication/reason for exam; i.e. extremities or head) *Use of iterative reconstruction technique DLP: 787 mGy-cm FINDINGS: There is no evidence of acute intracranial hemorrhage or territorial infarction. No abnormal mass-effect or midline shift is seen. Stevens to white matter differentiation is well preserved. No extra-axial fluid collections are identified. The ventricles are normal in size. There is mild periventricular white matter hypoattenuation consistent with chronic small vessel ischemic disease. No acute fracture is seen. Subgaleal hematoma is noted in the lateral right frontal region. Mucus retention cysts in the bilateral maxillary sinuses. The mastoid air cells are well-aerated. CT/CT head/brain wo IV con IMPRESSION: No acute intracranial pathology. Subgaleal hematoma in the lateral right frontal region.
[2023-12-09] MEDS: LORazepam 2 MG/ML VIAL IVPUSH ×2 (04:44→14:55)
[2023-12-09] MEDS: levETIRAcetam in NaCl (iso-os) 1,500 MG/100 ML PIGGYBACK 400 MG IV (04:53)
[2023-12-09] MEDS: LORazepam 2 MG/ML VIAL 4 MG IM (04:53)
--- NOTE | 2023-12-09 04:55 | ECG_ITS ---
Test Reason : SEIZURE Blood Pressure : / mmHG Vent. Rate : 096 BPM Atrial Rate : 096 BPM P-R Int : 130 ms QRS Dur : 084 ms QT Int : 324 ms P-R-T Axes : 035 055 043 degrees QTc Int : 409 ms Normal sinus rhythm Normal ECG When compared with ECG of 14-OCT-2023 09:39, No significant change was found Referred By: Zahra Jennings Electronically Signed By:MICHELE VOGT
--- NOTE | 2023-12-09 04:56 | ED_ITS ---
HPI - Seizure General Chief Complaint: Seizure Stated Complaint: fall seizure Time Seen by Provider: 12/09/23 04:46 Source: EMS Mode of arrival: EMS Limitations: other History of Present Illness HPI Narrative: Patient comes to the emergency room from [facility] via ambulance. According to the staff, patient had 6 seizures starting a 3 in the morning, 2 hours ago. Patient was found on the floor, unclear if patient fell. Patient known to have history of seizures, takes Keppra and Depakote. According to EMS, patient received 2 mg IM of Versed at [facility]. Here in the emergency room, patient had a seizure on arrival, patient was given IM Ativan. Patient had 2 more seizures. Patient is postictal, not answering any questions. According to the staff from [facility], patient at baseline is alert and oriented and conversational. Related Data Home Medications ?Medication ?Instructions ?Recorded ?Confirmed acetaminophen 325 mg tablet 650 mg PO Q4H PRN Fever Or Pain 01/29/23 01/29/23 aripiprazole 2 mg tablet 3 mg PO DAILY 01/29/23 01/29/23 aspirin 81 mg chewable tablet 81 mg PO DAILY 01/29/23 01/29/23 bisacodyl 10 mg rectal suppository 10 mg [place] DAILY PRN Constipation 01/29/23 01/29/23 brimonidine 0.2 % eye drops 1 drp ophthalmic (eye) BID 01/29/23 01/29/23 divalproex 125 mg tablet,delayed 125 mg PO BID 01/29/23 01/29/23 release divalproex 250 mg tablet,delayed 250 mg PO BID 01/29/23 01/29/23 release dorzolamide 2 % eye drops 1 drp ophthalmic (eye) BID 01/29/23 01/29/23 fluoride (sodium) 15 ml dental BID 01/29/23 01/29/23 fluoride (sodium) 1.1 % dental 1 appl dental BEDTIME 01/29/23 01/29/23 paste (PreviDent 5000 Booster Plus) lactulose 10 gram/15 mL oral 60 ml PO TID 01/29/23 01/29/23 solution levothyroxine 50 mcg tablet 50 mcg PO DAILY 01/29/23 01/29/23 omega-3 fatty acids 1,000 mg PO DAILY 01/29/23 01/29/23 sennosides 8.6 mg tablet (senna) 8.6 mg PO DAILY PRN Constipation 01/29/23 01/29/23 sodium phosphates 19 gram-7 118 ml [place] DAILY PRN Constipation 01/29/23 01/29/23 gram/118 mL enema (Fleet Enema) timolol maleate 0.5 % eye drops 1 drp ophthalmic (eye) BID 01/29/23 01/29/23 Previous Rx's ?Medication ?Instructions ?Recorded levetiracetam 1,000 mg tablet 1,000 mg PO BID #60 tabs 01/30/23 Allergies Allergy/AdvReac Type Severity Reaction Status Date / Time scallops Allergy Mild UNKNOWN Verified 12/09/23 04:49 shellfish derived Allergy Mild UNKNOWN Verified 12/09/23 04:49 [SHELLFISH DERIVED] TUNA FISH Allergy Mild UNKNOWN Uncoded 12/09/23 04:49 Review of Systems 2 Review of Systems: Yes Other [facility] Past Medical History Medical History Breakthrough seizure Seizure disorder Bipolar 1 disorder History of traumatic brain injury Status epilepticus Social History Social History Household Members: Unknown / Unable to assess Housing: Other Housing Other:: [facility] Do you presently have visiting nurse or other home services: No Unable to assess alcohol history related to: Unknown Patient Tobacco Use Status: Never used Tobacco e-Cigarette/Vaping Use: Never Used Advance Directives: No Advance Directives Information Provided: Yes service: No Physical Exam 2 Vital Signs: Vital Signs: Last Vital Signs Temp 100.7 F H 12/09/23 05:04 Pulse 103 H 12/09/23 06:09 Resp 16 12/09/23 06:09 BP 111/70 12/09/23 06:09 Pulse Ox 97 12/09/23 06:09 O2 Del Method Nasal Cannula 12/09/23 06:09 O2 Flow Rate 2 12/09/23 06:09 BMI result Body Mass Index 35.8 Const: Other: Appearance: Awake, postictal not answering questions Eyes: Pupils equal, round and reactive to light. ENT: Pharynx normal. Small abrasion to the lower lip, tongue seems to be intact Neck: Normal inspection. Neck supple. No lymph nodes noted. No crepitus CVS: Normal heart rate and rhythm. Pulses normal. Normal S1 and S2 Respiratory: No respiratory distress. Breath sounds normal. No Wheezing. No rales Abdomen: Soft and nontender. No rigidity. No distention. Skin: Skin warm and dry. Normal skin color. Normal skin turgor. Extremities: No lower extremity edema. No Lacerations. No Rash Neuro: Intermittently having seizures, postictal Psych: Postictal Course Course Course Narrative: -including the seizures at [facility], in the ambulance and here in the emergency room, patient has had 10 seizures within 2 hours. -patient has had 1 dose of IM Versed, 4 of IM Ativan, to IV Ativan, 100 mg of IV Keppra. -at this time 05:00, patient seems to have stopped seizing. -of patient's labs and imaging pending Medications Administered Generic Name Dose Route Start Last Admin Trade Name Freq PRN Reason Stop Dose Admin Sodium Chloride 1,000 mls @ 999 mls/hr 12/09/23 06:30 12/09/23 06:44 Ns IVCONT 12/09/23 07:30 999 mls/hr .Q1H1M ONE Administration Discontinued Medications Generic Name Dose Route Start Last Admin Trade Name Freq PRN Reason Stop Dose Admin Levetiracetam 1,500 mg in 100 mls @ 400 mls/hr 12/09/23 04:46 12/09/23 05:13 Keppra IV 12/09/23 05:00 Infused ONCE ONE Infusion Sodium Chloride 1,000 mls @ 999 mls/hr 12/09/23 04:55 12/09/23 05:58 Ns IVCONT 12/09/23 05:55 Infused .Q1H1M ONE Infusion Lorazepam 4 mg 12/09/23 04:46 12/09/23 04:53 Lorazepam 2 Mg/Ml Vial IM 12/09/23 04:47 4 mg STAT STA Administration Lorazepam 2 mg 12/09/23 04:46 12/09/23 04:44 Lorazepam 2 Mg/Ml Vial IVPUSH 12/09/23 04:47 2 mg ONCE ONE Administration Medical Decision Making Medical Decision Making [facility] Narrative: -my interpretation of labs, hematology at baseline, chemistry was hemolyzed. Patient's lactic acid 11.7 secondary to seizures, not sepsis. Troponin negative. Urinalysis negative for UTI -chemistry pending, sign-out given to my colleague Dr. Paez. -I already spoke to Dr. De La Rosa, once the patient's chemistry returns, if the electrolytes are accessible, the medicine team will admit. Differential Diagnosis Differential Diagnoses: The differential diagnosis associated with the presentation includes (Medication noncompliance, status epilepticus, electrolyte imbalance, subtherapeutic dose of medications) Admission/Observation Consideration of admission/observation: Escalation of care including admission/observation considered Consult Healthcare Provider Management of the patient was discussed with: Hospitalist Lab Data [facility] Lab Attestation statement: I reviewed the patient's lab results. 12/09/23 05:04 12/09/23 05:04 Labs: Lab Results 12/09/23 12/09/23 12/09/23 Range/Units 05:04 05:06 05:26 WBC 7.5 (4.8-10.8) X10*3/uL RBC 3.79 L (4.60-5.80) X10*6/uL Hgb 11.9 L (14.0-18.0) g/dl Hct 34.9 L (42.0-52.0) % MCV 92.1 (80.0-98.0) fL MCH 31.4 (27.0-33.0) pg MCHC 34.1 (31.0-36.0) g/dl RDW 11.9 (11.0-16.0) % Plt Count 195 (160-400) X10*3/uL MPV 8.6 L (9.4-12.4) fL Immature Gran % (Auto) 2.3 H (0.0-0.4) % Neut % (Auto) 75.3 H (45-73) % Lymph % (Auto) 14.8 L (20-40) % [place] % (Auto) 6.5 (2-11) % Eos % (Auto) 0.7 (0-4) % Baso % (Auto) 0.4 (0-2) % Lymph # (Auto) 1.1 L (1.2-4.9) X10*3/uL [place] # (Auto) 0.5 (0.1-1.2) X10*3/uL Eos # (Auto) 0.1 (0.0-0.4) X10*3/uL Baso # (Auto) 0.0 (0.0-0.2) X10*3/uL Abs Immat Gran (auto) 0.17 H (0.00-0.03) X10*3/uL Absolute Neuts (auto) 5.6 (2.0-8.3) x10*3/uL Absolute Nucleated RBC 0.000 (0.0-0.012) X10*3/uL Nucleated RBC % (auto) 0.0 (0.0-0.2) /100WBC PT 12.1 (11.1-13.3) SEC INR 1.0 (0.9-1.1) Lactic Acid 11.7 H* (0.5-2.0) mmol/L Troponin I High Sens < 2.7 D (<3.5-35.0) ng/L Urine Color Yellow Urine Appearance Clear Urine pH 5.0 (5.0-9.0) Ur Specific [place] 1.015 (1.005-1.025) Urine Protein Trace (Neg-Trace) mg/dL Urine Glucose (UA) Negative (Negative) mg/dL Urine Ketones Trace (Negative) mg/dL Urine Blood Negative (Negative) Urine Nitrite Negative (Negative) Ur Leukocyte Esterase Negative (Negative) Independent Interpretation I performed an independent interpretation of an: CT Scan Radiology Impression Discussion of test interpretation with radiology: I have reviewed the radiologist's reading. Radiologist Impression: FINDINGS: There is no evidence of acute intracranial hemorrhage or territorial infarction. No abnormal mass-effect or midline shift is seen. Stevens to white matter differentiation is well preserved. No extra-axial fluid collections are identified. The ventricles are normal in size. There is mild periventricular white matter hypoattenuation consistent with chronic small vessel ischemic disease. No acute fracture is seen. Subgaleal hematoma is noted in the lateral right frontal region. Mucus retention cysts in the bilateral maxillary sinuses. The mastoid air cells are well-aerated. CT/CT head/brain wo IV con IMPRESSION: No acute intracranial pathology. Subgaleal hematoma in the lateral right frontal region. Critical Care Time Critical Care Time Critical Care Time: Yes Total Critical Care Time: 75 Attestation: I have personally provided critical care time. Time includes review of lab data, radiology results, discussion with consultants, and monitoring for potential decompensation. Intervention performed as documented. Discharge Plan Discharge Clinical Impression: Seizure Patient Disposition: Admitted As Inpatient Prescriptions: No Action sennosides [senna] 8.6 mg Tablet 8.6 mg PO DAILY PRN (Reason: Constipation) acetaminophen 325 mg Tablet 650 mg PO Q4H PRN (Reason: Fever Or Pain) divalproex 250 mg Tablet,Delayed Release (Dr/Ec) 250 mg PO BID levothyroxine 50 mcg Tablet 50 mcg PO DAILY bisacodyl 10 mg Suppository 10 mg TX DAILY PRN (Reason: Constipation) Rx Instructions: use if senna is ineffective brimonidine 0.2 % Drops 1 drp OPHTHALMIC (EYE) BID Rx Instructions: administer approximately 8 hours apart divalproex 125 mg Tablet,Delayed Release (Dr/Ec) 125 mg PO BID Fleet Enema 19-7 gram/118 mL Enema 118 ml TX DAILY PRN (Reason: Constipation) Rx Instructions: use is Biscodyl ineffective timolol maleate 0.5 % Drops 1 drp OPHTHALMIC (EYE) BID dorzolamide 2 % drops 1 drp ophthalmic (eye) BID omega-3 fatty acids Capsule 1,000 mg PO DAILY lactulose 10 gram/15 mL Solution 60 ml PO TID aripiprazole 2 mg Tablet 3 mg PO DAILY fluoride (sodium) [PreviDent 5000 Booster Plus] 1.1 % Paste 1 appl DENTAL BEDTIME fluoride (sodium) 0.02 % (0.044 % sod. fluoride) Solution 15 ml DENTAL BID aspirin 81 mg Tablet,Chewable 81 mg PO DAILY levetiracetam 1,000 mg tablet 1,000 mg PO BID Qty: 60 0RF Rx Instructions: replaces prior dose 750 mg bid Print Language: Djiboutian
[2023-12-09] MEDS: 0.9 % Sodium Chloride 1,000 ML 999 ML IVCONT ×2 (04:59→06:44)
[2023-12-09 05:16] LABS: Basophils Percent Auto 0.4 % (0-2); Eosinophils Absolute Auto 0.1 X10*3/uL (0.0-0.4); Eosinophils Percent Auto 0.7 % (0-4); Hematocrit 34.9 % (42.0-52.0); Hemoglobin 11.9 g/dl (14.0-18.0); Imm Gran Abs Auto 0.17 X10*3/uL (0.00-0.03); Imm Gran Pct Auto 2.3 % (0.0-0.4); Lymphocytes Absolute Auto 1.1 X10*3/uL (1.2-4.9); Lymphocytes Percent Auto 14.8 % (20-40); MANUAL DIFF FLAG NO; Mean Corpuscular HGB Conc 34.1 g/dl (31.0-36.0); Mean Corpuscular Hemoglobin 31.4 pg (27.0-33.0); Mean Corpuscular Volume 92.1 fL (80.0-98.0); Mean Platelet Volume 8.6 fL (9.4-12.4); Monocytes Absolute Auto 0.5 X10*3/uL (0.1-1.2); Monocytes Percent Auto 6.5 % (2-11); Neutrophils Absolute Auto 5.6 x10*3/uL (2.0-8.3); Neutrophils Percent Auto 75.3 % (45-73); Platelet Count 195 X10*3/uL (160-400); Red Blood Count 3.79 X10*6/uL (4.60-5.80); Red Cell Distribution Width 11.9 % (11.0-16.0); White Blood Count 7.5 X10*3/uL (4.8-10.8)
[2023-12-09 05:17] LABS: Appearance Urine Clear; Color Urine Yellow; Glucose Urine UA Negative (Negative); Leukocyte Esterase Urine Negative (Negative); Nitrite Urine Negative (Negative); Specific Gravity - Urine 1.015 (1.005-1.025); Urine Blood Negative (Negative); Urine Ketones Trace mg/dL (Negative); Urine Protein Trace mg/dL (Neg-Trace)
[2023-12-09 05:30] LABS: Lactic Acid 11.7 mmol/L (0.5-2.0)
[2023-12-09 05:35] LABS: Prothrombin Time 12.1 SEC (11.1-13.3)
[2023-12-09 05:37] LABS: Troponin-I High Sensitivity < 2.7 ng/L (<3.5-35.0)
[2023-12-09 07:15] LABS: Reflex Lactate? Lactic Acid Added
[2023-12-09 07:44] LABS: ~Lactic Acid-LAB USE ONLY 2.5 mmol/L (0.5-2.0)
[2023-12-09 07:50] LABS: Alanine Aminotransferase 13 U/L (0-40); Albumin Level 3.7 g/dL (3.5-5.0); Alkaline Phosphatase 82 U/L (39-117); Anion Gap 13 (12-20); Aspartate Amino Transferase 12 U/L (5-37); Bilirubin Direct 0.1 mg/dL (0.0-0.5); Bilirubin Total 0.3 mg/dL (0.0-1.0); Blood Urea Nitrogen 7 mg/dL (9-16); Calcium 8.9 mg/dL (8.4-10.2); Carbon Dioxide 19 mmol/L (22-29); Chloride 108 mmol/L (96-108); Creatinine Clr Calc Pharmacy 113.5; Estimated Glomerular Filt Rate > 60; Glucose Random 100 mg/dL (60-115); Magnesium 2.3 mg/dL (1.6-2.6); Potassium 4.2 mmol/L (3.3-5.1); Sodium 136 mmol/L (135-145); Total Protein 6.7 g/dL (6.5-8.0)
[2023-12-09 07:55] LABS: Valproate < 12.5 mcg/mL (50.0-100.0)
--- NOTE | 2023-12-09 08:54 | P.HPHOSP_ITS ---
History of Present Illness Date of Service: 12/09/23 Chief Complaint: Intractable seizures 63-year-old male well known to me from [facility] presents with intractable seizures. He was witnessed having at least 7 seizures at [facility] for which she received IM Ativan for a total of 2 mg. Seizures remained refractory and he was transported to [facility]. In the emergency room, he had approximately 10 further seizures and was given and IV Keppra load of 1500 mg along with Ativan total dose 8 mg. His seizures did break with this regimen and he remained hemodynamically stable. Initial lactate was 11.7; repeat 2.5. At this time patient is hemodynamically stable and is maintaining a good airway however will be admitted and continue with IV Keppra. His diet will be advanced as he awakens from Ativan Review of Systems 2 Review of Systems: Unable to obtain secondary to sedation [facility] Medical History Breakthrough seizure Seizure disorder Bipolar 1 disorder History of traumatic brain injury Status epilepticus Social History Household Members: Unknown / Unable to assess Housing: Other Housing Other:: pt came in from [facility] Do you presently have visiting nurse or other home services: No Unable to assess alcohol history related to: Unknown Patient Tobacco Use Status: Never used Tobacco e-Cigarette/Vaping Use: Never Used Advance Directives: No Advance Directives Information Provided: Yes service: No Meds Allergies Allergy/AdvReac Type Severity Reaction Status Date / Time scallops Allergy Mild UNKNOWN Verified 12/09/23 04:49 shellfish derived Allergy Mild UNKNOWN Verified 12/09/23 04:49 [SHELLFISH DERIVED] TUNA FISH Allergy Mild UNKNOWN Uncoded 12/09/23 04:49 Active Medications: Current Medications Acetaminophen (Acetaminophen 325 Mg Tablet) 650 mg PO Q6H PRN PRN Reason: Pain, Mild (Pain Scale 1-3) Al Hydroxide/Mg Hydroxide (Magnesium Hydrox/Alum Hydrox 30 Ml Oral.Susp) 30 ml PO Q4H PRN PRN Reason: Heartburn/Nausea Sodium Chloride (Ns) 1,000 mls @ 100 mls/hr IVCONT .Q10H VANNA Levetiracetam (Keppra) 1,000 mg in 100 mls @ 400 mls/hr IV Q12H VANNA Lorazepam (Lorazepam 2 Mg/Ml Vial) 1 mg IVPUSH Q2H PRN PRN Reason: Seizures Ondansetron HCl (Ondansetron Hcl 4 Mg/2 Ml Vial) 4 mg IVPUSH Q8H PRN PRN Reason: Nausea and Vomiting Sodium Chloride (0.9 % Sodium Chloride Flush 3 Ml Syringe) 3 ml IVFLUSH QSHIFT [facility] Home Medications ?Medication ?Instructions ?Recorded ?Confirmed ?Last Taken ?Type acetaminophen 325 mg tablet 650 mg PO Q4H PRN Fever Or Pain 01/29/23 01/29/23 Unknown History aripiprazole 2 mg tablet 3 mg PO DAILY 01/29/23 01/29/23 Unknown History aspirin 81 mg chewable tablet 81 mg PO DAILY 01/29/23 01/29/23 Unknown History bisacodyl 10 mg rectal suppository 10 mg MN DAILY PRN Constipation 01/29/23 01/29/23 Unknown History brimonidine 0.2 % eye drops 1 drp ophthalmic (eye) BID 01/29/23 01/29/23 Unknown History divalproex 125 mg tablet,delayed 125 mg PO BID 01/29/23 01/29/23 Unknown History release divalproex 250 mg tablet,delayed 250 mg PO BID 01/29/23 01/29/23 Unknown History release dorzolamide 2 % eye drops 1 drp ophthalmic (eye) BID 01/29/23 01/29/23 Unknown History fluoride (sodium) 15 ml dental BID 01/29/23 01/29/23 Unknown History fluoride (sodium) 1.1 % dental 1 appl dental BEDTIME 01/29/23 01/29/23 Unknown History paste (PreviDent 5000 Booster Plus) lactulose 10 gram/15 mL oral 60 ml PO TID 01/29/23 01/29/23 Unknown History solution levothyroxine 50 mcg tablet 50 mcg PO DAILY 01/29/23 01/29/23 Unknown History omega-3 fatty acids 1,000 mg PO DAILY 01/29/23 01/29/23 Unknown History sennosides 8.6 mg tablet (senna) 8.6 mg PO DAILY PRN Constipation 01/29/23 01/29/23 Unknown History sodium phosphates 19 gram-7 118 ml MN DAILY PRN Constipation 01/29/23 01/29/23 Unknown History gram/118 mL enema (Fleet Enema) timolol maleate 0.5 % eye drops 1 drp ophthalmic (eye) BID 01/29/23 01/29/23 Unknown History Physical Exam 2 Vital Signs and Narrative: Vital Signs: Last Vital Signs Temp 100.7 F H 12/09/23 05:04 Pulse 80 12/09/23 08:32 Resp 18 12/09/23 08:32 BP 117/62 12/09/23 08:32 Pulse Ox 99 12/09/23 08:32 O2 Del Method Room Air 12/09/23 08:32 O2 Flow Rate 2 12/09/23 06:09 BMI result Body Mass Index 35.8 Const: Other: Somnolent but arousable no acute distress Resp: Other: Clear to auscultation bilaterally no rales rhonchi or wheezes Cardio: Other: No S4; positive S1-S2; no S3 murmurs rubs or gallops GI: Other: Soft nontender nondistended normoactive bowel sounds Neuro: Other: Limited exam secondary to sedation; responds appropriately to questions and moves all extremities with equal power Extrem: Other: No edema bilaterally Results Labs 12/09/23 05:04 12/09/23 07:18 Labs: Laboratory Results - last 24 hr 12/09/23 12/09/23 12/09/23 05:04 05:06 05:26 MCV 92.1 MCH 31.4 MCHC 34.1 RDW 11.9 Plt Count 195 MPV 8.6 L Immature Gran % (Auto) 2.3 H Neut % (Auto) 75.3 H Lymph % (Auto) 14.8 L [place] % (Auto) 6.5 Eos % (Auto) 0.7 Baso % (Auto) 0.4 Lymph # (Auto) 1.1 L [place] # (Auto) 0.5 Eos # (Auto) 0.1 Baso # (Auto) 0.0 Abs Immat Gran (auto) 0.17 H Absolute Neuts (auto) 5.6 Absolute Nucleated RBC 0.000 Nucleated RBC % (auto) 0.0 Hold Purple Top PT 12.1 INR 1.0 Anion Gap Estim Creat Clear Calc Estimated GFR Random Glucose Lactic Acid 11.7 H* Lactic Acid F/U @ 2Hr Calcium Magnesium Total Bilirubin Direct Bilirubin AST ALT Alkaline Phosphatase Total Creatine Kinase Troponin I High Sens < 2.7 D Total Protein Albumin Hold Red Top Urine Color Yellow Urine Appearance Clear Urine pH 5.0 Ur Specific [place] 1.015 Urine Protein Trace Urine Glucose (UA) Negative Urine Ketones Trace Urine Blood Negative Urine Nitrite Negative Ur Leukocyte Esterase Negative Valproic Acid 12/09/23 12/09/23 06:49 07:18 MCV MCH MCHC RDW Plt Count MPV Immature Gran % (Auto) Neut % (Auto) Lymph % (Auto) [place] % (Auto) Eos % (Auto) Baso % (Auto) Lymph # (Auto) [place] # (Auto) Eos # (Auto) Baso # (Auto) Abs Immat Gran (auto) Absolute Neuts (auto) Absolute Nucleated RBC Nucleated RBC % (auto) Hold Purple Top SEE NOTE PT INR Anion Gap 13 Estim Creat Clear Calc 113.5 Estimated GFR > 60 Random Glucose 100 Lactic Acid Lactic Acid F/U @ 2Hr 2.5 H* Calcium 8.9 Magnesium 2.3 Total Bilirubin 0.3 Direct Bilirubin 0.1 AST 12 ALT 13 Alkaline Phosphatase 82 Total Creatine Kinase 186 H Troponin I High Sens Total Protein 6.7 Albumin 3.7 Hold Red Top See Note Urine Color Urine Appearance Urine pH Ur Specific [place] Urine Protein Urine Glucose (UA) Urine Ketones Urine Blood Urine Nitrite Ur Leukocyte Esterase Valproic Acid < 12.5 L Imaging Radiologist's Impressions: Impressions Head CT 12/09/23 05:36 IMPRESSION: No acute intracranial pathology. Subgaleal hematoma in the lateral right frontal region. Assessment and Plan (1) Seizure disorder: Status: Acute (2) Bipolar 1 disorder: Status: Acute Plan 63-year-old male from [facility] with known seizure disorder presents with intractable seizures totaling at least 18 from transport at [facility] to ER. Received total of 1500 mg of Keppra and 8 mg of Ativan in divided doses IV. He is currently hemodynamically stable and seizure free. When discussed with [facility] floor nurse; patient has been compliant with his oral Keppra 1. Seizure disorder (in backdrop of TBI) -Keppra level done in emergency room prior to initial dosing. -we will continue Keppra 1000 mg IV q.12 hours pending level if low therapeutic may need additional agents -seizure precautions -advance diet when more awake 2. Bipolar disorder type 1 -continue outpatient therapies -return to [facility] when clinically appropriate Full code Pneumatics Patient will require at least 2 midnights going forward of inpatient stay to receive IV Keppra pending level. He is at high risk for outpatient failure if discharged prior to level. This can not be achieved at a lesser acute setting Quality Stroke Does the patient have a stroke diagnosis?: No VTE Prior VTE?: No VTE Risk Level:: Medical - moderate - high VTE Device Contraindication: N/A - Device Ordered VTE Drug Contraindication: Treatment Not Indicated
[2023-12-09 09:22] LABS: Reflex Lactate? 2 Y
--- NOTE | 2023-12-09 09:25 | PHA.MEDREC ---
Pharmacy Consult ? Medication Reconciliation Pharmacy has completed the medication reconciliation. Pt had list from Claudia at [facility].
[2023-12-09] MEDS: 0.9 % Sodium Chloride 1,000 ML 100 ML IVCONT ×2 (09:38→20:10)
--- NOTE | 2023-12-09 09:58 | PC.NURSE ---
Pt continues to sleep. Breathing even and unlabored. Pt on bedside clinical review nurse, NSR. Seizure precautions remain in place.
[2023-12-09 10:33] LABS: ~Lactic Acid-LAB USE ONLY 1.6 mmol/L (0.5-2.0)
--- NOTE | 2023-12-09 11:56 | PC.NURSE ---
Pt noted to be more awake, sitting up in bed and pulling at IVs and August cath. Per MD order, august d/c. Pt appears more comfortable without august. Does have some periods of pulling at IV. Pt does well with redirection. Camera observation placed in room for safety.
--- NOTE | 2023-12-09 13:42 | PC.NURSE ---
Pt pulled out IV in right hand, found taking off clothes and pulling at monitor. IV in left forearm noted to be filtrated, puffy. Warm compression placed on left arm. Fluids continued in another IV site. MD contacted about pts increased agitation, awaiting orders.
[2023-12-09] MEDS: ARIPiprazole 5 MG TABLET PO (14:53)
[2023-12-09] MEDS: Levothyroxine Sodium 50 MCG TABLET PO (14:53)
[2023-12-09] MEDS: Divalproex Sodium Sprinkles 125 MG CAP.DR.SPR PO ×2 (14:53→19:58)
[2023-12-09] MEDS: Aspirin 81 MG TAB.CHEW PO (14:54)
[2023-12-09] MEDS: levETIRAcetam in NaCl (iso-os) 1,000 MG/100 ML PIGGYBACK 400 MG IV (16:18)
[2023-12-09] MEDS: 0.9 % Sodium Chloride Flush 3 ML SYRINGE IVFLUSH (16:18)
--- NOTE | 2023-12-09 16:31 | PC.NURSE ---
arrived from the ED to 485 via stretcher, awake , flat affect, oriented to person only. No seizure activity at this time , pt became restless , got up from the bed , unsteady gait , unable to redirect pt , assisted with 2 medical staff to the bathroom . Pt t back to bed asking when he can go home and why is he here. 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
[2023-12-09] MEDS: timoloL maleate 0.5 % Oph Sol 5 ML DRBTL 1 DROP EYE-BOTH (19:59)
[2023-12-09] MEDS: Brimonidine Tartrate 0.2% Oph 5 ML BOTTLE 1 DROP EYE-BOTH (19:59)
[2023-12-09] MEDS: Lactulose 20 GM/30 ML SOLUTION 40 GM PO (19:59)
[2023-12-09] MEDS: Dorzolamide HCl 2 % Ophth Sol 10 ML DRPBTL 1 DROP EYE-BOTH (19:59)
[2023-12-09] MEDS: Divalproex Sodium 250 MG TABLET.DR PO (19:59)
[2023-12-10 04:02] VITALS: BP 147/85; PULSE 61; RESP 16; TEMP 36; O2SAT 96
[2023-12-10] MEDS: Levothyroxine Sodium 50 MCG TABLET PO (05:58)
[2023-12-10 05:59] LABS: MANUAL DIFF FLAG NO
[2023-12-10 06:19] LABS: Alanine Aminotransferase 13 U/L (0-40); Albumin Level 3.6 g/dL (3.5-5.0); Alkaline Phosphatase 81 U/L (39-117); Anion Gap 12 (12-20); Aspartate Amino Transferase 18 U/L (5-37); Bilirubin Total 0.3 mg/dL (0.0-1.0); Blood Urea Nitrogen 7 mg/dL (9-16); Carbon Dioxide 19 mmol/L (22-29); Chloride 109 mmol/L (96-108); Creatinine Clr Calc Pharmacy 120.4; Estimated Glomerular Filt Rate > 60; Glucose Random 118 mg/dL (60-115); Potassium 4.1 mmol/L (3.3-5.1); Sodium 136 mmol/L (135-145); Total Protein 6.7 g/dL (6.5-8.0)
[2023-12-10] MEDS: levETIRAcetam in NaCl (iso-os) 1,000 MG/100 ML PIGGYBACK 400 MG IV ×2 (06:24→16:28)
[2023-12-10] MEDS: 0.9 % Sodium Chloride 1,000 ML 100 ML IVCONT ×2 (06:24→15:49)
[2023-12-10 06:39] LABS: Basophils Absolute Auto 0.1 X10*3/uL (0.0-0.2); Basophils Percent Auto 0.7 % (0-2); Eosinophils Absolute Auto 0.2 X10*3/uL (0.0-0.4); Eosinophils Percent Auto 2.2 % (0-4); Hematocrit 40.4 % (42.0-52.0); Hemoglobin 13.5 g/dl (14.0-18.0); Imm Gran Pct Auto 1.2 % (0.0-0.4); Lymphocytes Percent Auto 23.9 % (20-40); Mean Corpuscular HGB Conc 33.4 g/dl (31.0-36.0); Mean Corpuscular Hemoglobin 30.5 pg (27.0-33.0); Mean Corpuscular Volume 91.2 fL (80.0-98.0); Mean Platelet Volume 9.2 fL (9.4-12.4); Monocytes Percent Auto 12.1 % (2-11); Neutrophils Absolute Auto 4.9 x10*3/uL (2.0-8.3); Neutrophils Percent Auto 59.9 % (45-73); Platelet Count 215 X10*3/uL (160-400); Red Blood Count 4.43 X10*6/uL (4.60-5.80); Red Cell Distribution Width 12.1 % (11.0-16.0); White Blood Count 8.2 X10*3/uL (4.8-10.8)
[2023-12-10 08:00] VITALS: BP 142/67; PULSE 60; RESP 20; TEMP 36.1; O2SAT 98
[2023-12-10] MEDS: Aspirin 81 MG TAB.CHEW PO (08:31)
[2023-12-10] MEDS: 0.9 % Sodium Chloride Flush 3 ML SYRINGE IVFLUSH ×3 (08:31→22:20)
[2023-12-10] MEDS: Brimonidine Tartrate 0.2% Oph 5 ML BOTTLE 1 DROP EYE-BOTH ×2 (08:31→22:19)
[2023-12-10] MEDS: ARIPiprazole 5 MG TABLET PO (08:31)
[2023-12-10] MEDS: Divalproex Sodium Sprinkles 125 MG CAP.DR.SPR 500 MG PO ×2 (08:31→22:19)
[2023-12-10] MEDS: timoloL maleate 0.5 % Oph Sol 5 ML DRBTL 1 DROP EYE-BOTH ×2 (08:32→22:19)
[2023-12-10] MEDS: Dorzolamide HCl 2 % Ophth Sol 10 ML DRPBTL 1 DROP EYE-BOTH ×2 (08:32→22:19)
[2023-12-10] MEDS: Lactulose 20 GM/30 ML SOLUTION 40 GM PO (09:09)
[2023-12-10 11:13] VITALS: BP 148/74; PULSE 78; RESP 20; TEMP 36.5; O2SAT 96
--- NOTE | 2023-12-10 11:13 | MHC.CM.PN ---
CM ATTEMPTED TO CONTACT PT'S MANNY AL JONESTONY X2 ON CELL PHONE LISTED, NO ANSWER AND DETAILED MESSAGE LEFT, IMM TO BE SENT CERTIFIED MAIL, PLAN WILL BE FOR PT TO RETURN TO [facility] WHEN MEDICALLY CLEARED, [facility]/PCP ON FILE. PT WILL NEED [place] MEDICAID TRANSPORT
--- NOTE | 2023-12-10 13:11 | HO.PM.IMPN ---
Subjective Subjective Date of Service: 12/10/23 Interval History: No further seizures since admission. Mentation back to baseline Review of Systems Unable to obtain secondary to sedation Physical Exam Vital Signs: Vital Signs: Last Vital Signs Temp 97.7 F 12/10/23 11:13 Pulse 78 12/10/23 11:13 Resp 20 12/10/23 11:13 BP 148/74 H 12/10/23 11:13 Pulse Ox 96 12/10/23 11:13 O2 Del Method Room Air 12/10/23 11:13 O2 Flow Rate 2 12/09/23 13:05 BMI result Body Mass Index 35.8 Const: Other: Somnolent but arousable no acute distress Resp: Other: Clear to auscultation bilaterally no rales rhonchi or wheezes Cardio: Other: No S4; positive S1-S2; no S3 murmurs rubs or gallops GI: Other: Soft nontender nondistended normoactive bowel sounds Neuro: Other: Limited exam secondary to sedation; responds appropriately to questions and moves all extremities with equal power Extrem: Other: No edema bilaterally Objective Data Active Medications Acetaminophen (Acetaminophen 325 Mg Tablet) 650 mg PO Q6H PRN PRN Reason: Pain, Mild (Pain Scale 1-3) Al Hydroxide/Mg Hydroxide (Magnesium Hydrox/Alum Hydrox 30 Ml Oral.Susp) 30 ml PO Q4H PRN PRN Reason: Heartburn/Nausea Aripiprazole (Aripiprazole 5 Mg Tablet) 5 mg PO DAILY [facility] Last Admin: 12/10/23 08:31 Dose: 5 mg Documented By: ARTUR Aspirin (Aspirin 81 Mg Tab.Chew) 81 mg PO DAILY [facility] Last Admin: 12/10/23 08:31 Dose: 81 mg Documented By: ARTUR Brimonidine Tartrate (Brimonidine Tartrate 0.2% Oph 5 Ml Bottle) 1 drop EYE-BOTH BID [facility] Last Admin: 12/10/23 08:31 Dose: 1 drop Documented By: ARTUR Divalproex Sodium (Divalproex Sodium Sprinkles 125 Mg Cap.Dr.Spr) 500 mg PO BID [facility] Last Admin: 12/10/23 08:31 Dose: 500 mg Documented By: ARTUR Dorzolamide HCl (Dorzolamide Hcl 2 % Ophth Tamika 10 Ml Drpbtl) 1 drop EYE-BOTH BID [facility] Last Admin: 12/10/23 08:32 Dose: 1 drop Documented By: ARTUR Sodium Chloride (Ns) 1,000 mls @ 100 mls/hr IVCONT .Q10H [facility] Last Admin: 12/10/23 06:24 Dose: 100 mls/hr Documented By: JESSICA Levetiracetam (Keppra) 1,000 mg in 100 mls @ 400 mls/hr IV Q12H [facility] Last Infusion: 12/10/23 06:41 Dose: Infused Documented By: JESSICA Lactulose (Lactulose 20 Gm/30 Ml Solution) 40 gm PO BID [facility] Last Admin: 12/10/23 09:09 Dose: 40 gm Documented By: ARTUR Levothyroxine Sodium (Levothyroxine Sodium 50 Mcg Tablet) 50 mcg PO DAILY@0600 [facility] Last Admin: 12/10/23 05:58 Dose: 50 mcg Documented By: JESSICA Lorazepam (Lorazepam 2 Mg/Ml Vial) 1 mg IVPUSH Q2H PRN PRN Reason: Seizures Ondansetron HCl (Ondansetron Hcl 4 Mg/2 Ml Vial) 4 mg IVPUSH Q8H PRN PRN Reason: Nausea and Vomiting Sodium Chloride (0.9 % Sodium Chloride Flush 3 Ml Syringe) 3 ml IVFLUSH QSHIFT [facility] Last Admin: 12/10/23 08:31 Dose: 3 ml Documented By: ARTUR Timolol Maleate (Timolol Maleate 0.5 % Oph Tamika 5 Ml Drbtl) 1 drop EYE-BOTH BID [facility] Last Admin: 12/10/23 08:32 Dose: 1 drop Documented By: ARTUR Labs 12/10/23 05:32 12/10/23 05:32 Labs: Laboratory Results - last 24 hr 12/10/23 05:32 MCV 91.2 MCH 30.5 MCHC 33.4 RDW 12.1 Plt Count 215 MPV 9.2 L Immature Gran % (Auto) 1.2 H Neut % (Auto) 59.9 Lymph % (Auto) 23.9 [place] % (Auto) 12.1 H Eos % (Auto) 2.2 Baso % (Auto) 0.7 Lymph # (Auto) 2.0 [place] # (Auto) 1.0 Eos # (Auto) 0.2 Baso # (Auto) 0.1 Abs Immat Gran (auto) 0.10 H Absolute Neuts (auto) 4.9 Absolute Nucleated RBC 0.000 Nucleated RBC % (auto) 0.0 Anion Gap 12 Estim Creat Clear Calc 120.4 Estimated GFR > 60 Random Glucose 118 H Calcium 9.0 Total Bilirubin 0.3 AST 18 ALT 13 Alkaline Phosphatase 81 Total Protein 6.7 Albumin 3.6 Assessment and Plan (1) Seizure: Status: Acute (2) Bipolar 1 disorder: Status: Acute Plan 63-year-old male from [facility] with known seizure disorder presents with intractable seizures totaling at least 18 from transport at [facility] to ER. Received total of 1500 mg of Keppra and 8 mg of Ativan in divided doses IV. He is currently hemodynamically stable and seizure free. When discussed with [facility] floor nurse; patient has been compliant with his oral Keppra 1. Seizure disorder (in backdrop of TBI) -Keppra level done in emergency room prior to initial dosing... Awaiting results -we will continue Keppra 1000 mg IV q.12 hours pending level if low therapeutic may need additional agents -typical level undetectable... Replete IV x2 doses then switch back to p.o. -seizure precautions 2. Bipolar disorder type 1 -continue outpatient therapies -return to [facility] when clinically appropriate Full code Pneumatics Patient requires ongoing hospitalization for IV Depakote and IV Keppra pending levels. High risk for outpatient failure given noncompliance Quality Stroke Does the patient have a stroke diagnosis?: No VTE Prior VTE?: No VTE Risk Level:: Medical - moderate - high VTE Device Contraindication: N/A - Device Ordered VTE Drug Contraindication: Treatment Not Indicated
[2023-12-10 15:17] VITALS: BP 134/76; PULSE 77; TEMP 36.4; O2SAT 96
[2023-12-10 20:00] VITALS: BP 157/74; PULSE 76; RESP 20; TEMP 37.3; O2SAT 95
[2023-12-10 23:11] VITALS: BP 153/79; PULSE 64; RESP 20; TEMP 37.2; O2SAT 96
[2023-12-11] MEDS: 0.9 % Sodium Chloride 1,000 ML 100 ML IVCONT (02:28)
[2023-12-11 03:52] VITALS: BP 142/82; PULSE 58; RESP 17; TEMP 36.3; O2SAT 96
[2023-12-11] MEDS: Levothyroxine Sodium 50 MCG TABLET PO (05:23)
[2023-12-11] MEDS: levETIRAcetam in NaCl (iso-os) 1,000 MG/100 ML PIGGYBACK 400 MG IV (05:24)
[2023-12-11 07:49] VITALS: BP 140/86; PULSE 74; RESP 18; TEMP 36.2; O2SAT 97
[2023-12-11] MEDS: Divalproex Sodium Sprinkles 125 MG CAP.DR.SPR 500 MG PO (09:07)
[2023-12-11] MEDS: Aspirin 81 MG TAB.CHEW PO (09:07)
[2023-12-11] MEDS: Lactulose 20 GM/30 ML SOLUTION 40 GM PO (09:07)
[2023-12-11] MEDS: ARIPiprazole 5 MG TABLET PO (09:07)
[2023-12-11] MEDS: 0.9 % Sodium Chloride Flush 3 ML SYRINGE IVFLUSH (09:08)
[2023-12-11] MEDS: Brimonidine Tartrate 0.2% Oph 5 ML BOTTLE 1 DROP EYE-BOTH (09:09)
[2023-12-11] MEDS: Dorzolamide HCl 2 % Ophth Sol 10 ML DRPBTL 1 DROP EYE-BOTH (09:09)
[2023-12-11] MEDS: timoloL maleate 0.5 % Oph Sol 5 ML DRBTL 1 DROP EYE-BOTH (09:09)
[2023-12-11 09:25] LABS: Valproate 54.6 mcg/mL (50.0-100.0)
[2023-12-11 11:37] VITALS: BP 146/80; PULSE 70; RESP 18; TEMP 36.5; O2SAT 97
--- NOTE | 2023-12-11 11:49 | MHC.CM.PN ---
Patient cleared for d/c back to [facility]. Pt will transport via [place] medicaid services.
--- NOTE | 2023-12-11 11:51 | P.DS_ITS ---
DS: Providers Provider Date of Service: 12/11/23 Date of admission: 12/09/23 08:49 Date of discharge: 12/11/23 Primary care physician: Unknown Physician DS: Diagnosis Discharge Diagnosis (1) Seizure: Status: Acute (2) Bipolar 1 disorder: Status: Acute DS: Summary Hospital Course Hospital Course: 63-year-old male well known to me from [facility] presents with intractable seizures. He was witnessed having at least 7 seizures at [facility] for which she received IM Ativan for a total of 2 mg. Seizures remained refractory and he was transported to [facility]. In the emergency room, he had a pproximately 10 further seizures and was given and IV Keppra load of 1500 mg along with Ativan total dose 8 mg. His seizures did break with this regimen and he remained hemodynamically stable. Initial lactate was 11.7; repeat 2.5. At this time patient is hemodynamically stable and is maintaining a good airway however will be admitted and continue with IV Keppra. His diet will be advanced as he awakens from [facility] Hospital Course Patient admitted to telemetry and had no further seizures since the emergency room. He was continued on IV Keppra and his Depakote was increased to 500 b.i.d.. Over the course of the next 48 hours he remained seizure-free. A Depakote level was checked today, 12/10 and was 52. At this point in time he is medically acceptable for transfer back to [facility] and I will follow him there. Time Attestation Discharge Coordination Time (in mins): 35 Quality: Safe Use of Opioids Does Pt have an Active Cancer Diagnosis on the Problem List?: No Quality: Stroke Does the patient have a stroke diagnosis?: No Physical Exam Vital Signs: Vital Signs: Last Vital Signs Temp 97.7 F 12/11/23 11:37 Pulse 70 12/11/23 11:37 Resp 18 12/11/23 11:37 BP 146/80 H 12/11/23 11:37 Pulse Ox 97 12/11/23 11:37 O2 Del Method Room Air 12/11/23 11:37 O2 Flow Rate 2 12/09/23 13:05 BMI result Body Mass Index 35.8 Const: Other: Somnolent but arousable no acute distress Resp: Other: Clear to auscultation bilaterally no rales rhonchi or wheezes Cardio: Other: No S4; positive S1-S2; no S3 murmurs rubs or gallops GI: Other: Soft nontender nondistended normoactive bowel sounds Neuro: Other: Limited exam secondary to sedation; responds appropriately to questions and moves all extremities with equal power Extrem: Other: No edema bilaterally DS: Data Data Completed and Pending Completed studies during hospitalization [Text1]: Procedures Insertion of Endotracheal Airway into Trachea, Via Natural or Artificial Opening (01/29/23) Introduction of Vasopressor into Peripheral Vein, Percutaneous Approach (01/29/23) Respiratory Ventilation, Less than 24 Consecutive Hours (01/29/23) Labs on day of discharge: Laboratory Results - last 24 hr 12/11/23 08:45 Valproic Acid 54.6 Discharge Plan Discharge Anticipated Discharge Date/Time: 12/11/23 11:42 Patient Disposition: Xfer [facility] Discharge Diagnosis: Intractable seizures Referrals: Physician,Unknown J [Primary Care Provider] - 1 Week Discharge Medications: New divalproex 125 mg Capsule, Delayed Rel Sprinkle 500 mg PO BID Qty: 240 5RF Continued sennosides [senna] 8.6 mg Tablet 8.6 mg PO DAILY PRN (Reason: Constipation) acetaminophen 325 mg Tablet 650 mg PO Q4H PRN (Reason: Fever Or Pain) Rx Instructions: DNE 3 G / 24 HRS levothyroxine 50 mcg Tablet 50 mcg PO DAILY@0600 bisacodyl 10 mg Suppository 10 mg LA DAILY PRN (Reason: Constipation) Rx Instructions: use if senna is ineffective brimonidine 0.2 % Drops 1 drp OPHTHALMIC (EYE) BID Rx Instructions: administer approximately 8 hours apart Fleet Enema 19-7 gram/118 mL Enema 118 ml LA DAILY PRN (Reason: Constipation) Rx Instructions: use is Biscodyl ineffective timolol maleate 0.5 % Drops 1 drp OPHTHALMIC (EYE) BID dorzolamide 2 % drops 1 drp ophthalmic (eye) BID lactulose 10 gram/15 mL Solution 60 ml PO BID fluoride (sodium) [PreviDent 5000 Booster Plus] 1.1 % Paste 1 appl DENTAL BEDTIME fluoride (sodium) 0.02 % (0.044 % sod. fluoride) Solution 15 ml DENTAL BID aspirin 81 mg Tablet,Chewable 81 mg PO DAILY levetiracetam 1,000 mg tablet 1,000 mg PO BID Qty: 60 0RF Rx Instructions: replaces prior dose 750 mg bid omega-3 fatty acids 1,000 mg Capsule 1,000 mg PO DAILY lorazepam 2 mg/mL Solution 1 mg IV Q5M PRN (Reason: Seizures) ibuprofen 600 mg Tablet 600 mg PO Q6H PRN (Reason: Severe Pain (Scale Score 7-10)) aripiprazole 5 mg tablet 5 mg PO DAILY Discontinued divalproex 250 mg Tablet,Delayed Release (Dr/Ec) 250 mg PO BID Rx Instructions: with 125 mg divalproex 125 mg Tablet,Delayed Release (Dr/Ec) 125 mg PO BID Rx Instructions: with 250 mg Discharge Orders: Discharge Order (Routine); Ordered 12/11/23 Ordered By: Douglas Kelly Diet: Advance to usual diet Activity on Discharge: As tolerated Stand Alone Forms: Patient Portal Discharge page Print Language: Upper Sorbian Care Plan Goals: Resume all medicines as taken previously at [facility]. Your Depakote has been increased to 500 mg twice daily. Continue Keppra as ordered Health Concerns: Resume care as previously at [facility] Plan of Treatment: I will follow-up 12/13/23 Assessment: See discharge summary
--- NOTE | 2023-12-11 12:22 | MHC.CM.PN ---
Addendum entered by Jenny Gutierrez 12/11/23 12:51: Call placed to Mateus Singh (guardian)- notifed that patient is returning to [facility] this afternoon, he verbalized understanding. Original Note: Called placed to [facility], spoke w/ unit RN where pt resides. Notified them pt will return via [facility] @ 1pM
[2023-12-20 11:04] LABS: Levetiracetam Keppra 36.4 mcg/mL (6.0-46.0)
== END 2023-12-11 12:56 | DRG 101 ==
LOC: HO.ED 06:47 → HO.EDOVER 08:57 → HO.IMC 14:42
PROVIDERS: Admitting Provider Hospitalist; Emergency Provider Emergency Medicine; PCP Hospitalist; Visit Provider Hospitalist
DX: G40.919 Epilepsy, unspecified, intractable, without status epilepticus (principal); F31.9 Bipolar disorder, unspecified; Z87.820 Personal history of traumatic brain injury; Z79.82 Long term (current) use of aspirin; Z79.890 Hormone replacement therapy; Z79.899 Other long term (current) drug therapy
CPT/HCPCS: 36415; 70450; 80048; 80053; 80076; 80164; 80177; 81003; 82550; 83605; 83735; 84484; 85025; 85610; 93005; 99285; J1953; J2060

== ENCOUNTER → 2023-12-09 04:55 | Outpatient (BNV) | payer MEDICARE, MEDICAID, SELFPAY | PROVIDERS: Admitting Provider Hospitalist; Emergency Provider Emergency Medicine; Visit Provider Internal Medicine | DX: R56.9 Unspecified convulsions (principal) | CPT/HCPCS: 93010 ==

== ENCOUNTER → 2023-12-09 08:49 | Outpatient (BNV) | payer MEDICARE, MEDICAID, SELFPAY | PROVIDERS: Admitting Provider Hospitalist; Emergency Provider Emergency Medicine; Visit Provider Hospitalist | DX: G40.919 Epilepsy, unspecified, intractable, without status epilepticus (principal); F31.9 Bipolar disorder, unspecified | CPT/HCPCS: 99223; 99233; 99239 ==

== ENCOUNTER 2024-04-21 19:19 | Emergency (ER) | payer MEDICARE, MEDICAID, SELFPAY ==
--- NOTE | 2024-04-21 | ECG_ITS ---
Test Reason : ?seizure Blood Pressure : / mmHG Vent. Rate : 099 BPM Atrial Rate : 099 BPM P-R Int : 138 ms QRS Dur : 090 ms QT Int : 336 ms P-R-T Axes : 036 048 041 degrees QTc Int : 431 ms Normal sinus rhythm Normal ECG When compared with ECG of 09-DEC-2023 05:33, No significant change was found Referred By: Generic ED Physician Electronically Signed By:YELENA LAND
[2024-04-21 19:30] VITALS: BP 104/62; BP 115/68; PULSE 110; PULSE 99; RESP 29; TEMP 36.8; O2SAT 94; O2SAT 95; BMI 32.8
[2024-04-21 20:34] LABS: Alanine Aminotransferase 14 U/L (0-40); Alkaline Phosphatase 95 U/L (39-117); Anion Gap 18 (12-20); Aspartate Amino Transferase 18 U/L (5-37); Bilirubin Total 0.3 mg/dL (0.0-1.0); Blood Urea Nitrogen 4 mg/dL (9-16); Calcium 9.2 mg/dL (8.4-10.2); Carbon Dioxide 15 mmol/L (22-29); Chloride 101 mmol/L (96-108); Creatinine Clr Calc Pharmacy 99.6; Estimated Glomerular Filt Rate > 60; Glucose Random 135 mg/dL (60-115); Potassium 4.3 mmol/L (3.3-5.1); Sodium 130 mmol/L (135-145); Total Protein 7.7 g/dL (6.5-8.0)
[2024-04-21 20:38] LABS: Troponin-I High Sensitivity 6.2 ng/L (<3.5-35.0)
[2024-04-21 20:44] LABS: Lactic Acid 6.9 mmol/L (0.5-2.0)
[2024-04-21 21:11] LABS: Influenza A PCR NEGATIVE (Negative); Influenza B PCR NEGATIVE (Negative); Resp Syncy Virus RNA Qual PCR NEGATIVE (Negative); SARS COV2 PCR INHOUSE NEGATIVE (Negative)
[2024-04-21 21:26] LABS: Basophils Percent Auto 0.3 % (0-2); Eosinophils Percent Auto 0.1 % (0-4); Hematocrit 39.4 % (42.0-52.0); Hemoglobin 14.1 g/dl (14.0-18.0); Imm Gran Abs Auto 0.43 X10*3/uL (0.00-0.03); Imm Gran Pct Auto 2.8 % (0.0-0.4); Lymphocytes Absolute Auto 0.7 X10*3/uL (1.2-4.9); Lymphocytes Percent Auto 4.6 % (20-40); Mean Corpuscular HGB Conc 35.8 g/dl (31.0-36.0); Mean Corpuscular Volume 86.6 fL (80.0-98.0); Mean Platelet Volume 8.8 fL (9.4-12.4); Monocytes Absolute Auto 1.1 X10*3/uL (0.1-1.2); Monocytes Percent Auto 7.4 % (2-11); Neutrophils Percent Auto 84.8 % (45-73); Platelet Count 257 X10*3/uL (160-400); Red Blood Count 4.55 X10*6/uL (4.60-5.80); Red Cell Distribution Width 11.6 % (11.0-16.0); White Blood Count 15.3 X10*3/uL (4.8-10.8)
--- NOTE | 2024-04-21 22:01 | ED_ITS ---
HPI - Seizure General Chief Complaint: Seizure Stated Complaint: multiple seizures, from snf Source: patient and EMS Mode of arrival: EMS Limitations: no limitations History of Present Illness ED Provider: Dr. Sahil Hardin HPI Narrative: 64-year-old male with a history of seizures, bipolar disorder, traumatic brain injury who presents emergency department for evaluation of multiple seizures at his nursing facility and EN route to the hospital. The patient has traumatic brain injury and is an unreliable informant and he lacks insight as to why he is here in the emergency department. The patient had a witnessed seizure at his nursing facility and was treated with Ativan 1 mg IV. EMS noted that the patient was having [id number] seizures x3 and he was given Versed 4 mg IM and then an IV line was established he was given Versed 2 mg IV push. Patient was noted to have O2 saturations of 80 90 90% on room air and was treated with 4 L of oxygen via nasal cannula. Patient does take Keppra 1000 mg b.i.d. and Depakote 375 mg b.i.d.. Patient has been seen here in the emergency department in the past with similar presentations. Related Data Home Medications ?Medication ?Instructions ?Recorded ?Confirmed acetaminophen 325 mg tablet 650 mg PO Q4H PRN Fever Or Pain 01/29/23 12/09/23 aspirin 81 mg chewable tablet 81 mg PO DAILY 01/29/23 12/09/23 bisacodyl 10 mg rectal suppository 10 mg VA DAILY PRN Constipation 01/29/23 12/09/23 brimonidine 0.2 % eye drops 1 drp ophthalmic (eye) BID 01/29/23 12/09/23 dorzolamide 2 % eye drops 1 drp ophthalmic (eye) BID 01/29/23 12/09/23 fluoride (sodium) 15 ml dental BID 01/29/23 12/09/23 fluoride (sodium) 1.1 % dental 1 appl dental BEDTIME 01/29/23 12/09/23 paste (PreviDent 5000 Booster Plus) lactulose 10 gram/15 mL oral 60 ml PO BID 01/29/23 12/09/23 solution levothyroxine 50 mcg tablet 50 mcg PO DAILY@0600 01/29/23 12/09/23 sennosides 8.6 mg tablet (senna) 8.6 mg PO DAILY PRN Constipation 01/29/23 12/09/23 sodium phosphates 19 gram-7 118 ml VA DAILY PRN Constipation 01/29/23 12/09/23 gram/118 mL enema (Fleet Enema) timolol maleate 0.5 % eye drops 1 drp ophthalmic (eye) BID 01/29/23 12/09/23 aripiprazole 5 mg tablet 5 mg PO DAILY 12/09/23 12/09/23 ibuprofen 600 mg tablet 600 mg PO Q6H PRN Severe Pain 12/09/23 12/09/23 (Scale Score 7-10) lorazepam 2 mg/mL injection 1 mg IV Q5M PRN Seizures 12/09/23 12/09/23 solution omega-3 fatty acids 1,000 mg 1,000 mg PO DAILY 12/09/23 12/09/23 capsule Previous Rx's ?Medication ?Instructions ?Recorded levetiracetam 1,000 mg tablet 1,000 mg PO BID #60 tabs 01/30/23 divalproex 125 mg capsule,delayed 500 mg (4 x 125 mg) PO BID #240 12/11/23 release sprinkle caps Allergies Allergy/AdvReac Type Severity Reaction Status Date / Time scallops Allergy Mild UNKNOWN Verified 04/21/24 19:37 shellfish derived Allergy Mild UNKNOWN Verified 04/21/24 19:37 [SHELLFISH DERIVED] TUNA FISH Allergy Mild UNKNOWN Uncoded 04/21/24 19:37 Review of Systems 2 Review of Systems: Yes all other systems are reviewed and are negative PMFSH Past Medical History Medical History Breakthrough seizure Seizure disorder Bipolar 1 disorder History of traumatic brain injury Status epilepticus Social History Social History Household Members: Other Housing: Assisted Housing Other:: [facility] Do you presently have visiting nurse or other home services: No Unable to assess alcohol history related to: Unknown Patient Tobacco Use Status: Never used Tobacco Smoked in Last 30 Days: No e-Cigarette/Vaping Use: Never Used Use of substances other than those prescribed or required for medical reasons: No Advance Directives: No Advance Directives Information Provided: No Do you have a plan to hurt others: No Plan service: No Physical Exam 2 Vital Signs: Vital Signs: Last Vital Signs Temp 98.3 F 04/21/24 19:30 Pulse 99 04/21/24 19:30 Resp 29 H 04/21/24 19:30 BP 104/62 04/21/24 19:30 Pulse Ox 94 04/21/24 19:30 O2 Del Method Nasal Cannula 04/21/24 19:30 Oxygen Flow Rate 4 04/21/24 19:30 BMI result Body Mass Index 32.8 Vital signs did reveal an elevated respiratory rate of 29 otherwise unremarkable Exam: General: Awake, alert in no distress, lacks insight as to why he is here in the emergency depart Head: Normocephalic, atraumatic EENT: PERRL, Lids normal, sclera normal, conjunctiva normal, nose normal , ears normal, throat without erythema or exudates Neck: Supple, no adenopathy Lung: breath sounds symmetric, no wheezing, rales or rhonchi Chest: symmetric movement, nontender Heart: regular rate and rhythm, normal S1, S2 no murmurs or rubs Abdomen: soft, non-tender, nondistended, normal bowel sounds Back: no vertebral tenderness, no CVAT Extremities: no deformities, moves all extremities symmetrically Neuro: Awake, alert, oriented, normal speech, cranial nerves intact, moves all extremities symmetrically Psych: Pleasant, cooperative Medical Decision Making Medical Decision Making MDM Narrative: 64-year-old male with a history of seizures, bipolar disorder, traumatic brain injury who presents emergency department for evaluation of multiple seizures at his nursing facility and EN route to the hospital. Patient was treated with Ativan IM, Versed IM and Versed IV prior to coming to the emergency department. Patient has had similar presentations to the emergency department in the past. Patient's vital signs were normal. Patient is oriented to person but lacks insight to why he is here this is most likely caused by his traumatic brain injury. Vital signs were normal. Physical exam was unremarkable with a nonfocal neurologic exam Differential diagnosis: ?Includes but is not limited to seizures, electrolyte abnormalities, anemia Following evaluation was ordered: CBC, CMP, lactic acid, troponin, Keppra level, valproic acid level, COVID-19, influenza, RSV, EKG Course: 23:09 Patient's laboratory evaluation was consistent with is multiple seizures. Patient's Keppra level is pending. Valproic acid level was low at 19.7. Patient was given valproic acid 500 mg orally. The patient will be discharged back to his care facility. Admission/Observation Consideration of admission/observation: Escalation of care including admission/observation considered (Yes) Lab Data MDM Lab Attestation statement: I reviewed the patient's lab results. My interpretation patient's laboratory evaluation is as follows: WBC was elevated 15,300-most likely secondary to demargination from the seizures. Sodium was low 130, CO2 low 15, glucose elevated 135, Lactic acid elevated 6.9- these abnormalities are consistent with seizure. Valproic acid level was low 19.7. 04/21/24 20:48 04/21/24 20:10 Labs: Lab Results 04/21/24 04/21/24 04/21/24 Range/Units 20:10 20:21 20:48 WBC 15.3 H (4.8-10.8) X10*3/uL RBC 4.55 L (4.60-5.80) X10*6/uL Hgb 14.1 (14.0-18.0) g/dl Hct 39.4 L (42.0-52.0) % MCV 86.6 (80.0-98.0) fL MCH 31.0 (27.0-33.0) pg MCHC 35.8 (31.0-36.0) g/dl RDW 11.6 (11.0-16.0) % Plt Count 257 (160-400) X10*3/uL MPV 8.8 L (9.4-12.4) fL Immature Gran % (Auto) 2.8 H (0.0-0.4) % Neut % (Auto) 84.8 H (45-73) % Lymph % (Auto) 4.6 L (20-40) % [place] % (Auto) 7.4 (2-11) % Eos % (Auto) 0.1 (0-4) % Baso % (Auto) 0.3 (0-2) % Lymph # (Auto) 0.7 L (1.2-4.9) X10*3/uL [place] # (Auto) 1.1 (0.1-1.2) X10*3/uL Eos # (Auto) 0.0 (0.0-0.4) X10*3/uL Baso # (Auto) 0.0 (0.0-0.2) X10*3/uL Abs Immat Gran (auto) 0.43 H (0.00-0.03) X10*3/uL Absolute Neuts (auto) 13.0 H (2.0-8.3) x10*3/uL Absolute Nucleated RBC 0.000 (0.0-0.012) X10*3/uL Nucleated RBC % (auto) 0.0 (0.0-0.2) /100WBC Sodium 130 L (135-145) mmol/L Potassium 4.3 (3.3-5.1) mmol/L Chloride 101 (96-108) mmol/L Carbon Dioxide 15 L (22-29) mmol/L Anion Gap 18 (12-20) BUN 4 L (9-16) mg/dL Creatinine 0.78 (0.5-1.4) mg/dL Estim Creat Clear Calc 99.6 Estimated GFR > 60 Random Glucose 135 H (60-115) mg/dL Lactic Acid 6.9 H* (0.5-2.0) mmol/L Calcium 9.2 (8.4-10.2) mg/dL Total Bilirubin 0.3 (0.0-1.0) mg/dL AST 18 (5-37) U/L ALT 14 (0-40) U/L Alkaline Phosphatase 95 (39-117) U/L Troponin I High Sens 6.2 D (<3.5-35.0) ng/L Total Protein 7.7 (6.5-8.0) g/dL Albumin 4.0 (3.5-5.0) g/dL Valproic Acid 19.7 L (50.0-100.0) mcg/mL Influenza Type A (PCR) NEGATIVE (Negative) Influenza Type B (PCR) NEGATIVE (Negative) RSV RNA Qual (PCR) NEGATIVE (Negative) SARS-CoV-2 RNA (RT-PCR) NEGATIVE (Negative) Independent Interpretation I performed an independent interpretation of an: EKG Interpretation: My interpretation of the patient's 12 EKG done at 19:43 hours is as follows: Normal sinus rhythm rate of 99, normal VA interval, QRS duration QTC interval, no ST segment elevation, no ST segment depression, no T-wave abnormalities Independent Historian Clinical information obtained from an independent historian. History obtained from or confirmed by: EMS External Record Review External record reviewed: Inpatient record Chronic Conditions Patient?s care impacted by: Other (Seizure disorder) Discharge Plan Discharge Clinical Impression: Seizures Patient Disposition: Xfer [facility] Transfer Details: [facility] Additional Instructions: Your laboratory evaluation revealed abnormalities consistent with your seizures but no abnormalities that would be causing your seizures You did have a subtherapeutic valproic acid level of 19.7. You were given valproic acid 500 mg orally. Your provider should decide whether or not you need a higher dose of valproic acid to help prevent recurrent seizures You have a Keppra level that is pending, your provider can check this result to determine if you need a higher dose of Keppra based on this result Follow-up with your doctor in 2 days. Please return to the emergency department if your symptoms get worse or if you develop any symptoms that are concerning to you. Prescriptions: No Action sennosides [senna] 8.6 mg Tablet 8.6 mg PO DAILY PRN (Reason: Constipation) acetaminophen 325 mg Tablet 650 mg PO Q4H PRN (Reason: Fever Or Pain) Rx Instructions: DNE 3 G / 24 HRS levothyroxine 50 mcg Tablet 50 mcg PO DAILY@0600 bisacodyl 10 mg Suppository 10 mg VA DAILY PRN (Reason: Constipation) Rx Instructions: use if senna is ineffective brimonidine 0.2 % Drops 1 drp OPHTHALMIC (EYE) BID Rx Instructions: administer approximately 8 hours apart Fleet Enema 19-7 gram/118 mL Enema 118 ml VA DAILY PRN (Reason: Constipation) Rx Instructions: use is Biscodyl ineffective timolol maleate 0.5 % Drops 1 drp OPHTHALMIC (EYE) BID dorzolamide 2 % drops 1 drp ophthalmic (eye) BID lactulose 10 gram/15 mL Solution 60 ml PO BID fluoride (sodium) [PreviDent 5000 Booster Plus] 1.1 % Paste 1 appl DENTAL BEDTIME fluoride (sodium) 0.02 % (0.044 % sod. fluoride) Solution 15 ml DENTAL BID aspirin 81 mg Tablet,Chewable 81 mg PO DAILY levetiracetam 1,000 mg tablet 1,000 mg PO BID Qty: 60 0RF Rx Instructions: replaces prior dose 750 mg bid omega-3 fatty acids 1,000 mg Capsule 1,000 mg PO DAILY lorazepam 2 mg/mL Solution 1 mg IV Q5M PRN (Reason: Seizures) ibuprofen 600 mg Tablet 600 mg PO Q6H PRN (Reason: Severe Pain (Scale Score 7-10)) aripiprazole 5 mg tablet 5 mg PO DAILY divalproex 125 mg Capsule, Delayed Rel Sprinkle 500 mg PO BID Qty: 240 5RF Print Language: Maltese
[2024-04-21 22:21] LABS: Valproate 19.7 mcg/mL (50.0-100.0)
[2024-04-21 22:23] LABS: Reflex Lactate? Lactic Acid Added
[2024-04-21 22:30] LABS: MANUAL DIFF FLAG NO
[2024-04-21 23:20] VITALS: BP 120/97; PULSE 99; RESP 16; TEMP 37.2; O2SAT 97
[2024-04-21 23:27] LABS: Appearance Urine Clear; Color Urine Yellow; Glucose Urine UA Negative (Negative); Leukocyte Esterase Urine Negative (Negative); Nitrite Urine Negative (Negative); PH 5.5 (5.0-9.0); Specific Gravity - Urine <= 1.005 (1.005-1.025); Urine Blood Negative (Negative); Urine Ketones Negative (Negative); Urine Protein Negative (Neg-Trace)
[2024-04-21 23:37] VITALS: BP 137/65; PULSE 85; RESP 18; TEMP 36.6; O2SAT 97
[2024-04-21 23:37] LABS: ~Lactic Acid-LAB USE ONLY 2.6 mmol/L (0.5-2.0)
[2024-04-21] MEDS: Valproic Acid 250 MG CAPSULE 500 MG PO (23:38)
--- NOTE | 2024-04-21 23:38 | MHC.EDTECH ---
This tech took over care of patient at 2300,hourly rounds and vitals completed,patient is resting quietly at this time,call mclain in reach
[2024-04-22 01:23] LABS: Reflex Lactate? 2 Y
--- NOTE | 2024-04-22 01:58 | PC.NURSE ---
Nurse to nurse report called to [facility] facility, spoke to ALLY Arthur. Patient transported back to [facility] by [facility].
[2024-04-22 01:59] VITALS: BP 139/84; PULSE 83; RESP 16; TEMP 37.1; O2SAT 98
== END 2024-04-22 02:03 ==
PROVIDERS: Emergency Provider Emergency Medicine Emergency Medical Services; PCP Hospitalist
DX: R56.9 Unspecified convulsions (principal); Z87.820 Personal history of traumatic brain injury; Z79.899 Other long term (current) drug therapy; Z03.818 Encounter for observation for suspected exposure to other biological agents ruled out
CPT/HCPCS: 0241U; 36415; 80053; 80164; 80177; 81003; 83605; 84484; 85025; 93005; 99284

== ENCOUNTER 2025-04-02 10:27 | Outpatient (AMB) | payer MEDICARE, MEDICAID, SELFPAY ==
--- NOTE | 2025-04-02 10:44 | A.OFFVIS_ITS ---
Intake Visit Reasons: 2 Months / SZ Allergies scallops Allergy (Mild, Verified 04/21/24 19:37) UNKNOWN shellfish derived (SHELLFISH DERIVED) Allergy (Mild, Verified 04/21/24 19:37) UNKNOWN TUNA FISH Allergy (Mild, Uncoded 04/21/24 19:37) UNKNOWN HPI Comments Details: 65 years old man with history of alcohol abuse, diagnosis of bipolar disorder, and probably epilepsy. Seizures included generalized convulsion than he had been to emergency room at [facility] couple of times during last few years and was treated for generalized convulsion which included intubation. At the same time, there was no EEG evidence of seizures. He presenting with no explicit reason identified from the conversation for the visit. He mentions that recent lab tests, including liver enzyme tests, are normal. He says that he never had seizures but he has been admitted at [facility] twice with seizures. [facility] Medical History (Updated 04/02/25 @ 10:58 by Yesenia Olivera MD) Seizure disorder Seizure Breakthrough seizure Bipolar 1 disorder History of traumatic brain injury Status epilepticus Social History Household Members: Other Housing: Shelter Housing Other:: pt [facility] Do you presently have visiting nurse or other home services: No Unable to assess alcohol history related to: Unknown Patient Tobacco Use Status: Never used Tobacco e-Cigarette/Vaping Use: Never Used service: No Physical Exam Neuro Other: Mental Status: Alert and oriented to person, place, and time. Normal attention. Normal spontaneous speech, fluency, and comprehension. No obvious issues with mood and memory. Affect is appropriate. Cranial Nerves: CN II: Visual rodrigez full to confrontation, visual acuity intact. CN III, IV, : Pupils equal, round, reactive to light and accommodation. Extraocular movements are normal. CN V: Facial sensation is normal. CN VII: Facial movements symmetrical. CN VIII: Hearing intact to bedside conversation is normal. CN IX, X: Palate elevates symmetrically. CN XI: Shoulder shrug and head turn symmetrical. CN XII: Tongue midline without atrophy or fasciculations. Motor: Bulk and tone normal in all extremities. No significant muscle weakness in arms and legs. No drift. Extrapyramidal: Full facial expressions and blinking. No rigidity. Movements are appropriate with no tremor or abnormality. Speech: Normal; no dysarthria or tremor. Assessment & Plan Assessment & Plan (1) Seizure disorder: Comment: CT brain WO at [facility] in 2024: Mild atrophy, mild MVD CT brain WO at [facility] in January 2023: Minimal atrophy, mild MVD Routine EEGs at [facility] in 2012 and 2013: WNL. Code(s): G40.909 - Epilepsy, unspecified, not intractable, without status epilepticus Category: Medical Plan Impression: Epilepsy with generalized seizures with h/o status epilepticus. Will try to gather EEG definition of seizures Rec: a: Levetiracetam 500mg, 3, twice a day b: Divalproex acid 250mg, 1, twice a day c: EEG Orders: Orders EEG electroencephalogram Today G40.909 - Epilepsy, unspecified, not intractable, without status epilepticus Coding Level of Care Code Est Pt Level 4 (45033) Diagnoses Seizure disorder G40.909
--- OUTSIDE RECORDS SUMMARY | 2025-04-02 11:20 | XMS_ITS | Encounter Summary ---
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 Social History Tobacco Use Types Packs/Day Years Used Date Smoking Tobacco: Never Assessed Sex and Gender Information Value Date Recorded Sex Assigned at Not on file Legal Sex Male 4:55 AM EST Gender Identity Not on file Sexual Orientation Not on file documented as of this encounter Plan of Treatment Not on file documented as of this encounter Procedures Procedure Name Priority Date/Time Associated Diagnosis Comments AMMONIA Routine 12/25/2024 6:30 AM EDT 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 documented in this encounter Results * (ABNORMAL) Ammonia (12/25/2024 6:30 AM EDT) Ammonia 55(H) 11 - 35 mcmol/L LAB CHEMISTRY METHOD 12/25/2024 7:30 AM EDT [facility] Blood Venous blood specimen / Unknown 12/25/2024 6:30 AM EDT 12/25/2024 7:03 AM EDT us Douglas Kelly MD LAB BLOOD ORDERABLES Final Resul t [facility] [address] [place] [address], documented in this encounter Visit Diagnoses Diagnosis Other [facility] (current) drug therapy documented in this encounter Care Teams Vamp Seamer Relationship Specialty Start Date End Date Douglas Kelly MD [address] [place] [address] [address] NIKOLAS Jimenez PCP - General Internal Medicine 09/27/24 documented as of this encounter
--- OUTSIDE RECORDS SUMMARY | 2025-04-02 11:20 | XMS_ITS | Encounter Summary ---
Author Organization [facility] Address [address] [place] [address] Care Team Providers Care Chief Crna Name Role Phone Duoglas Kelly MD Primary Care Provider [phone] Encounter Details Date Type Department Care Team (Late st Contact Info) Description 07/10/[address] [facility] - Main Lab [address] [place] [address] Douglas Kelly MD [address] [place] [address] [address] [place], [place] Chronic ischemic heart disease, unspecified Social History Tobacco Use Types Packs/Day Years [...] Procedure Name Priority Date/Time Associated Diagnosis Comments COMPLETE BLOOD COUNT Routine 07/10/2024 5:50 AM EST Chronic ischemic heart disease, unspecified documented in this encounter Results * (ABNORMAL) Complete blood count (07/10/2024 5:50 AM EST) WBC 7.2 4.8 - 10.8 K/mcL LAB HEMETOLOGY METHOD 07/10/2024 6:[address] [facility] RBC 4.50 4.50 - 5.50 M/mcL LAB HEMETOLOGY METHOD 07/10/2024 6:[address] [facility] Hemoglobin 13.9 13.5 - 17.5 g/dL LAB HEMETOLOGY METHOD 07/10/2024 6:[address] [facility] Hematocrit 40.4(L) 42.0 - 54.0 % LAB HEMETOLOGY METHOD 07/10/2024 6:[address] [facility] MCV 90.6 79.0 - 98.0 FL LAB HEMETOLOGY METHOD 07/10/2024 6:[address] [facility] MCH 31.2 27.0 - 32.0 pcg LAB HEMETOLOGY METHOD 07/10/2024 6:44 AM [facility] MCHC 34.4 32.0 - 37.0 g/dL LAB HEMETOLOGY METHOD 07/10/2024 6:[address] [facility] RDW 11.9 11.0 - 15.0 % LAB HEMETOLOGY METHOD 07/10/2024 6:44 AM [facility] Platelets 232 130 - 400 K/mcL LAB HEMETOLOGY METHOD 07/10/2024 6:44 AM [facility] MPV 8.9 7.0 - 11.0 FL LAB HEMETOLOGY METHOD 07/10/2024 6:[address] [facility] NRBC 0.0 <1.0 % LAB HEMETOLOGY METHOD 07/10/2024 6:44 AM [facility] NRBC Absolute 0.00 <0.10 K/mcL LAB HEMETOLOGY METHOD 07/10/2024 6:44 AM [facility] Blood Venous blood specimen / Unknown 07/10/2024 5:50 AM EST 07/10/2024 6:18 AM EST us Douglas Kelly MD LAB BLOOD ORDERABLES Final Resul t [facility] [address] [place] [address], documented in this encounter Visit Diagnoses Diagnosis Chronic ischemic heart disease, unspecified documented in this encounter Care Teams Chief Crna Relationship Specialty Start Date End Date Douglas Kelly MD [address] [place] [address] Dr Suite [facility] NIKOLAS Jimenez PCP - General Internal Medicine 09/27/24 documented as of this encounter
--- OUTSIDE RECORDS SUMMARY | 2025-04-02 11:20 | XMS_ITS | Encounter Summary ---
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 globe cleaner (current) drug therapy Social History Tobacco Use [...] Procedure Name Priority Date/Time Associated Diagnosis Comments LEVETIRACETAM LEVEL Routine 11/04/2024 4 :48 AM EDT Other [facility] ([facility] drug therapy VALPROIC ACID LEVEL, TOTAL Routine 11/04/2024 4:48 AM EDT Other globe 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 The same dosage regimen will typically result in peak levels of 10 to 60 ug/mL, at approximately 1.5 hours post dose. If applicable, any drug confirmation testing reported here was developed and the performance characteristics determined by [facility]. This confirmation testing has not been cleared or approved by the FDA. The laboratory is regulated under CLIA as qualified to perform high-complexity testing. This test is used for patient testing purposes. It should not be regarded as investigational or for research. Test performed at [facility], [address], [place] [address] Destinee Grace MD, PhD - [employer] Blood Venous blood specimen / Unknown 11/04/2024 4:48 AM EDT 11/04/2024 5:22 AM EDT us Douglas Kelly MD LAB BLOOD ORDERABLES Final Resul t [facility] [address] [place] [address] * Valproic acid level, total (11/04/2024 4:48 AM EDT) [facility] Signature Valproic Acid, Total 50 50 - 100 mcg/mL LAB CHEMISTRY METHOD 11/04/2024 5:55 AM EDT [facility] Blood Venous blood specimen / Unknown 11/04/2024 4:48 AM EDT 11/04/2024 5:22 AM EDT us Douglas Kelly MD LAB BLOOD ORDERABLES Final Resul t [facility] [address] [place] [address], [place] [phone] documented in this encounter Visit Diagnoses Diagnosis Other [facility] (current) drug therapy documented in this encounter Care Teams Information Technology Teacher Relationship Specialty Start Date End Date Douglas Kelly MD [address] [place] [address] Dr [facility] [place], [place] PCP - General Internal Medicine 09/27/24 documented as of this encounter
--- OUTSIDE RECORDS SUMMARY | 2025-04-02 11:20 | XMS_ITS | Encounter Summary ---
Author Organization [facility] Address [address] [place] [address] Care Team Providers Care Automotive Design Layout Drafter Name Role Phone Douglas Kelly MD Primary Care Provider [phone] Encounter Details Date Type Department Care Team (Late st Contact Info) Description 08/08/2024 Lab Requisition [facility] - Main Lab [address] [place] [address] Douglas Kelly MD [address] [place] [address] [address] [place] Epilepsy, unspecified, not intractable, without status epilepticus (CMS/HCC V24, CMS/HCC V28) Social History Tobacco Use Types Packs/Day Years [...] Procedure Name Priority Date/Time Associated Diagnosis Comments CBC WITH AUTO DIFFERENTIAL Routine 08/08/2024 4:15 AM EST Epilepsy, unspecified, not intractable, without status epilepticus (CMS/HCC) CBC AND DIFFERENTIAL Routine 08/08/2024 4:15 AM EST Epilepsy, unspecified, not intractable, without status epilepticus (CMS/HCC) documented in this encounter Results * (ABNORMAL) CBC auto differential (08/08/2024 4:15 AM EST) WBC 7.3 4.8 - 10.8 K/[facility] LAB HEMETOLOGY METHOD 08/08/2024 5:16 AM EST [facility] RBC 4.60 4.50 - 5.50 M/[facility] LAB HEMETOLOGY METHOD 08/08/2024 5:16 AM EST [facility] Hemoglobin 14.2 13.5 - 17.5 g/dL LAB HEMETOLOGY METHOD 08/08/2024 5:16 AM [facility] Hematocrit 42.4 42.0 - 54.0 % LAB HEMETOLOGY METHOD 08/08/2024 5:16 AM [facility] MCV 91.8 79.0 - 98.0 FL LAB HEMETOLOGY METHOD 08/08/2024 5:16 AM [facility] MCH 30.7 27.0 - 32.0 pcg LAB HEMETOLOGY METHOD 08/08/2024 5:16 AM [facility] MCHC 33.5 32.0 - 37.0 g/dL LAB HEMETOLOGY METHOD 08/08/2024 5:16 AM [facility] RDW 11.8 11.0 - 15.0 % LAB HEMETOLOGY METHOD 08/08/2024 5:16 AM [facility] Platelets 267 130 - 400 K/mcL LAB HEMETOLOGY METHOD 08/08/2024 5:16 AM [facility] MPV 9.0 7.0 - 11.0 FL LAB HEMETOLOGY METHOD 08/08/2024 5:16 AM [facility] NRBC 0.0 <1.0 % LAB HEMETOLOGY METHOD 08/08/2024 5:16 AM [facility] NRBC Absolute 0.00 <0.10 K/mcL LAB HEMETOLOGY METHOD 08/08/2024 5:16 AM [facility] Neutrophils Relative 57.0 % LAB HEMETOLOGY METHOD 08/08/2024 5:16 AM [facility] Lymphocytes Relative 27.8 % LAB HEMETOLOGY METHOD 08/08/2024 5:16 AM [facility] Monocytes Relative 10.2 % LAB HEMETOLOGY METHOD 08/08/2024 5:16 AM EST [facility] Eosinophils Relative 2.1 % LAB HEMETOLOGY METHOD 08/08/2024 5:16 AM [facility] Basophils Relative 0.8 % LAB HEMETOLOGY METHOD 08/08/2024 5:16 AM [facility] Immature Granulocytes Relative 2.1 % LAB HEMETOLOGY METHOD 08/08/2024 5:16 AM [facility] Neutrophils Absolute 4.16 1.50 - 7.00 K/mcL LAB HEMETOLOGY METHOD 08/08/2024 5:16 AM EST [facility] Lymphocytes Absolute 2.03 1.00 - 5.00 K/mcL LAB HEMETOLOGY METHOD 08/08/2024 5:16 AM [facility] Monocytes Absolute 0.74 0.20 - 1.00 K/mcL LAB HEMETOLOGY METHOD 08/08/2024 5:16 AM EST [facility] Eosinophils Absolute 0.15 0.00 - 0.50 K/mcL LAB HEMETOLOGY METHOD 08/08/2024 5:16 AM EST [facility] Basophils Absolute 0.06 0.00 - 0.20 K/mcL LAB HEMETOLOGY METHOD 08/08/2024 5:16 AM [facility] Immature Granulocytes Absolute 0.15(H) 0.00 - 0.03 K/mcL LAB HEMETOLOGY METHOD 08/08/2024 5:16 AM EST [facility] Blood Venous blood specimen / Unknown 08/08/2024 4:15 AM EST 08/08/2024 5:06 AM EST us Douglas Kelly MD LAB BLOOD ORDERABLES Final Resul t [facility] [address] [place] [address], documented in this encounter Visit Diagnoses Diagnosis Epilepsy, unspecified, not intractable, without status epilepticus (CMS/HCC V24, CMS/HCC V28) documented in this encounter Care Teams Automotive Design Layout Drafter Relationship Specialty Start Date End Date Douglas Kelly MD [address] [place] [address] Dr [address] NIKOLAS Jimenez PCP - General Internal Medicine 09/27/24 documented as of this encounter
--- OUTSIDE RECORDS SUMMARY | 2025-04-02 11:20 | XMS_ITS | Encounter Summary ---
Author Organization [facility] Address [address] [place] [address] Care Team Providers Care Furniture Assembler And Installer Name Role Phone Douglas Kelly MD Primary Care Provider [phone] Encounter Details Date Type Department Care Team (Late st Contact Info) Description 03/27/2025 Lab Requisition [facility] - Main Lab [address] [facility] [place] [address] Douglas Kelly MD [address] [place] [address] [address] [place] Hypothyroidism, unspecified; Hyperlipidemia, unspecified Social History Tobacco Use Types Packs/Day [...] Procedure Name Priority Date/Time Associated Diagnosis Comments PROSTATE SPECIFIC ANTIGEN SCREEN Routine 03/27/2025 6:45 AM EDT Hypothyroidism, unspecified Hyperlipidemia, unspecified LIPID PANEL WITH REFLEX TO DIRECT LDL Routine 03/27/2025 6:45 AM EDT Hypothyroidism, unspecified Hyperlipidemia, unspecified THYROID STIMULATING HORMONE Routine 03/27/2025 6:45 AM EDT Hypothyroidism, unspecified Hyperlipidemia, unspecified THYROXINE FREE Routine 03/27/2025 6:45 AM EDT Hypothyroidism, unspecified Hyperlipidemia, unspecified AMMONIA Routine 03/27/2025 6:45 AM EDT Hypothyroidism, unspecified Hyperlipidemia, unspecified documented in this encounter Results * Thyroxine free (03/27/2025 6:45 AM EDT) [facility] Signature Free T4 1.31 0.70 - 1.80 ng/dL LAB CHEMISTRY METHOD 03/27/2025 9:55 AM EDT [facility] Blood Venous blood specimen / Unknown 03/27/2025 6:45 AM EDT 03/27/2025 7:49 AM EDT us Douglas Kelly MD LAB BLOOD ORDERABLES Final Resul t Performing Organization Address [facility] de Phone Number [facility] [address] [place] [address], [place] [phone] * Prostate specific antigen screen (03/27/2025 6:45 AM EDT) PSA 0.73 0.00 - 4.00 ng/mL LAB CHEMISTRY METHOD 03/27/2025 9:54 AM EDT [facility] Blood Venous blood specimen / Unknown 03/27/2025 6:45 AM EDT 03/27/2025 7:49 AM EDT Narrative [facility] - 03/27/2025 9:54 AM EDT The Siemens Advia Centaur Chemiluminescent Immunoassay is used. Results obtained with different assay methods or kits cannot be used interchangeably. Results cannot be interpreted as absolute evidence of the presence or absence of malignant disease. us Douglas Kelly MD LAB BLOOD ORDERABLES Final Resul t Performing Organization Address [facility] Co de Phone Number [facility] [address] [place] [address], [place] [phone] * Thyroid stimulating hormone (03/27/2025 6:45 AM EDT) TSH 1.30 0.40 - 4.00 mcIU/mL LAB CHEMISTRY METHOD 03/27/2025 10:39 AM EDT [facility] Blood Venous blood specimen / Unknown 03/27/2025 6:45 AM EDT 03/27/2025 7:49 AM EDT us Douglas Kelly MD LAB BLOOD ORDERABLES Final Resul t Performing Organization Address City/[facility]/ZIP Co de Phone Number [facility] [address] [place] [address], [place] [phone] * Ammonia (03/27/2025 6:45 AM EDT) Ammonia 33 11 - 35 mcmol/L LAB CHEMISTRY METHOD 03/27/2025 8:24 AM EDT [facility] Blood Venous blood specimen / Unknown 03/27/2025 6:45 AM EDT 03/27/2025 7:49 AM EDT us Douglas Kelly MD LAB BLOOD ORDERABLES Final Resul t Performing Organization Address [facility] de Phone Number [facility] [address] [place] [address], [place] [phone] * (ABNORMAL) Lipid panel with reflex to direct LDL (03/27/2025 6:45 AM EDT) Pathologist [facility] Cholesterol 164 0 - 200 mg/dL LAB CHEMISTRY METHOD 03/27/2025 8:58 AM EDT [facility] Triglycerides 116 0 - 150 mg/dL LAB CHEMISTRY METHOD 03/27/2025 8:58 AM EDT [facility] HDL 33(L) >=40 mg/dL LAB CHEMISTRY METHOD 03/27/2025 8:58 AM EDT [facility] LDL Calculated 108(H) 0 - 100 mg/dL LAB CHEMISTRY METHOD 03/27/2025 8:58 AM EDT [facility] Comment:Estimated LDL Calcul ated using equation: Total cholesterol - HDL cholesterol - (Triglycerides/5) VLDL Cholesterol Valentino 23.2 mg/dL LAB CHEMISTRY METHOD 03/27/2025 8:58 AM EDT [facility] Non HDL Chol. (LDL+VLDL) 131 <145 mg/dL LAB CHEMISTRY METHOD 03/27/2025 8:58 AM EDT [facility] Chol/HDL Ratio 5.0(H) 0.0 - 4.4 LAB CHEMISTRY METHOD 03/27/2025 8:58 AM EDT [facility] Blood Venous blood specimen / Unknown 03/27/2025 6:45 AM EDT 03/27/2025 7:49 AM EDT us Douglas Kelly MD LAB BLOOD ORDERABLES Final Resul t [facility] [address] [place] [address], documented in this encounter Visit Diagnoses Diagnosis Hypothyroidism, unspecified Hyperlipidemia, unspecified documented in this encounter Care Teams Furniture Assembler And Installer Relationship Specialty Start Date End Date Douglas Kelly MD [address] [place], [place] PCP - General Internal Medicine 09/27/24 documented as of this encounter
--- OUTSIDE RECORDS SUMMARY | 2025-04-02 11:20 | XMS_ITS | Clinical Summary ---
Author Organization [address] [facility] Address [address] [place] [address] Phone Care Team Providers Care Newspaper Clipper Name Role Phone Douglas Kelly MD Primary Care Provider [phone] Encounters Date Type Department Care Team Description 03/27/2025 Lab Requisition [facility] Lab [address] [place] [address] Douglas Kelly MD Hypothyroidism, unspecified; Hyperlipidemia, unspecified 02/05/2025 Lab Requisition [facility] Lab [address] [place] [address] Douglas Kelly MD Hypothyroidism, unspecified; Hyperlipidemia, unspecified from Last 3 Months Social History Tobacco Use Types Packs/Day Years Used Date Smoking Tobacco: Never Assessed Sex and Gender Information Value Date Recorded Sex Assigned at Not on file Legal Sex Male 4:55 AM EST Gender Identity Not on file Sexual Orientation Not on file Plan of Treatment Health Maintenance Due Date Last Done Comments DTaP,Tdap,and Td Vaccines (1 - Tdap) 01/19/1980 Pneumococcal Vaccine: 50+ Years (1 of 2 - PCV) 01/19/1980 Zoster Vaccines (1 of 2) 2011 Colorectal Cancer Screening: Colonoscopy 07/10/2022 HIV Screening 07/10/2022 Hepatitis C Screening 07/10/2022 Medicare Annual Wellness Visit 07/10/2022 Social Influencers of Health Screening 07/10/2022 COVID-19 Vaccine (1 - 2023-2 5 season) 2024 Depression Screening 08/07/2024 Influenza Vaccine (#1) 2025 Cholesterol Screening (Lipid Panel) 03/27/2030 03/27/2025, 09/27/2024 RSV Immunization Adult Patients (1 - 1-dose 75+ series) 01/19/2036 HIB Vaccines Aged Out No longer eligi ble based on patient's age to complete this topic HPV Vaccines Aged Out No longer eligi ble based on patient's age to complete this topic Hepatitis A Vaccines Aged Out No long er eligible based on patient's age to complete this topic Hepatitis B Vaccines Aged Out No long er eligible based on patient's age to complete this topic IPV Vaccines Aged Out No longer eligi ble based on patient's age to complete this topic MMR Vaccines Aged Out No longer eligi ble based on patient's age to complete this topic Meningococcal ACWY Vaccine Aged Out N o longer eligible based on patient's age to complete this topic Meningococcal B Vaccine Aged Out No l onger eligible based on patient's age to complete this topic RSV Immunization Patients Under 20 months Aged Out No longer eligible b ased on patient's age to complete this topic Varicella Vaccines Aged Out No longer eligible based on patient's age to complete this topic Procedures Procedure Name Priority Date/Time Associated Diagnosis Comments THYROXINE FREE Routine 03/27/2025 6:45 AM EDT Hypothyroidism, unspecified Hyperlipidemia, unspecified PROSTATE SPECIFIC ANTIGEN SCREEN Routine 03/27/2025 6:45 AM EDT Hypothyroidism, unspecified Hyperlipidemia, unspecified THYROID STIMULATING HORMONE Routine 03/27/2025 6:45 AM EDT Hypothyroidism, unspecified Hyperlipidemia, unspecified AMMONIA Routine 03/27/2025 6:45 AM EDT Hypothyroidism, unspecified Hyperlipidemia, unspecified LIPID PANEL WITH REFLEX TO DIRECT LDL Routine 03/27/2025 6:45 AM EDT Hypothyroidism, unspecified Hyperlipidemia, unspecified COMPLETE BLOOD COUNT Routine 02/05/2025 6:15 AM EDT Hypothyroidism, unspecified Hyperlipidemia, unspecified from Last 3 Months Results * Prostate specific antigen screen (03/27/2025 6:45 AM EDT) PSA 0.73 0.00 - 4.00 ng/mL LAB CHEMISTRY METHOD 03/27/2025 9:54 AM EDT [facility] ([facility]) [facility] Blood Venous blood specimen / Unknown 03/27/2025 6:45 AM EDT 03/27/2025 7:49 AM EDT Narrative [facility] - 03/27/2025 9:54 AM EDT The Siemens Advia Centaur Chemiluminescent Immunoassay is used. Results obtained with different assay methods or kits cannot be used interchangeably. Results cannot be interpreted as absolute evidence of the presence or absence of malignant disease. us Douglas Kelly MD LAB BLOOD ORDERABLES Final Resul t [facility] [address] [place] [address], [place] [phone] * (ABNORMAL) Lipid panel with reflex to direct LDL (03/27/2025 6:45 AM EDT) Cholesterol 164 0 - 200 mg/dL LAB CHEMISTRY METHOD 03/27/2025 8:58 AM EDT [facility] Triglycerides 116 0 - 150 mg/dL LAB CHEMISTRY METHOD 03/27/2025 8:58 AM EDT [facility] HDL 33(L) >=40 mg/dL LAB CHEMISTRY METHOD 03/27/2025 8:[facility] LDL Calculated 108(H) 0 - 100 mg/dL LAB CHEMISTRY METHOD 03/27/2025 8:58 AM T [facility] Comment:Estimated LDL Calcul ated using equation: Total cholesterol - HDL cholesterol - (Triglycerides/5) VLDL Cholesterol Valentino 23.2 mg/dL LAB CHEMISTRY METHOD 03/27/2025 8:58 AM EDT [facility] Non HDL Chol. (LDL+VLDL) 131 <145 mg/dL LAB CHEMISTRY METHOD 03/27/2025 8:58 AM EDT [facility] Chol/HDL Ratio 5.0(H) 0.0 - 4.4 LAB CHEMISTRY METHOD 03/27/2025 8:58 AM [facility] Blood Venous blood specimen / Unknown 03/27/2025 6:45 AM EDT 03/27/2025 7:49 AM EDT us Douglas Kelly MD LAB BLOOD ORDERABLES Final Resul t Performing Organization Address [facility] de Phone Number [facility] [address] [place] [address], [place] [phone] * Thyroid stimulating hormone (03/27/2025 6:45 AM EDT) TSH 1.30 0.40 - 4.00 mcIU/mL LAB CHEMISTRY METHOD 03/27/2025 10:39 AM EDT [facility] Blood Venous blood specimen / Unknown 03/27/2025 6:45 AM EDT 03/27/2025 7:49 AM EDT us Douglas Kelly MD LAB BLOOD ORDERABLES Final Resul t Performing Organization Address [facility] de Phone Number [facility] [address] [place] [address], [place] [phone] * Thyroxine free (03/27/2025 6:45 AM EDT) Free T4 1.31 0.70 - 1.80 ng/dL LAB CHEMISTRY METHOD 03/27/2025 9:55 AM EDT [facility] Blood Venous blood specimen / Unknown 03/27/2025 6:45 AM EDT 03/27/2025 7:49 AM EDT us Douglas Kelly MD LAB BLOOD ORDERABLES Final Resul t Performing Organization Address [facility]/ZIP Co de Phone Number [facility] [address] [place] [address], [place] [phone] * Ammonia (03/27/2025 6:45 AM EDT) Ammonia 33 11 - 35 mcmol/L LAB CHEMISTRY METHOD 03/27/2025 8:24 AM EDT [facility] Blood Venous blood specimen / Unknown 03/27/2025 6:45 AM EDT 03/27/2025 7:49 AM EDT Douglas Kelly MD LAB BLOOD ORDERABLES Final Resul t [facility] [address] [place] [address], * Complete blood count (02/05/2025 6:15 AM EDT) WBC 7.8 4.8 - 10.8 K/mcL LAB HEMETOLOGY METHOD 02/05/2025 7:27 AM [facility] RBC 4.70 4.50 - 5.50 M/mcL LAB HEMETOLOGY METHOD 02/05/2025 7:27 AM [facility] Hemoglobin 14.1 13.5 - 17.5 g/dL LAB HEMETOLOGY METHOD 02/05/2025 7:27 AM [facility] Hematocrit 42.9 42.0 - 54.0 % LAB HEMETOLOGY METHOD 02/05/2025 7:27 AM [facility] MCV 90.7 79.0 - 98.0 FL LAB HEMETOLOGY METHOD 02/05/2025 7:27 AM [facility] MCH 29.8 27.0 - 32.0 pcg LAB HEMETOLOGY METHOD 02/05/2025 7:27 AM [facility] MCHC 32.9 32.0 - 37.0 g/dL LAB HEMETOLOGY METHOD 02/05/2025 7:27 AM [facility] RDW 11.9 11.0 - 15.0 % LAB HEMETOLOGY METHOD 02/05/2025 7:27 AM [facility] Platelets 266 130 - 400 K/mcL LAB HEMETOLOGY METHOD 02/05/2025 7:27 AM EDT [facility] MPV 9.1 7.0 - 11.0 FL LAB HEMETOLOGY METHOD 02/05/2025 7:27 AM EDT [facility] NRBC 0.0 <1.0 % LAB HEMETOLOGY METHOD 02/05/2025 7:27 AM EDT [facility] NRBC Absolute 0.00 <0.10 K/mcL LAB HEMETOLOGY METHOD 02/05/2025 7:27 AM EDT [facility] Blood Venous blood specimen / Unknown 02/05/2025 6:15 AM EDT 02/05/2025 7:07 AM EDT us Douglas Kelly MD LAB BLOOD ORDERABLES Final Resul t [facility] [address] [place] [address], [place] [phone] from Last 3 Months Insurance MEDICARE Care Teams Newspaper Clipper Relationship Specialty Start Date End Date Douglas Kelly MD [address] [place] [address] [place] [address] PCP - General Internal Medicine 09/27/24
--- OUTSIDE RECORDS SUMMARY | 2025-04-02 11:20 | XMS_ITS | Encounter Summary ---
Author Organization [facility] Address [address] [place] [address] Care Team Providers Care Service Unit Operator Oil Well Name Role Phone Douglas Kelly MD Primary Care Provider [phone] Encounter Details Date Type Department Care Team (Late st Contact Info) Description 02/05/2025 Lab Requisition [facility] - Main Lab [address] [place] [address] Douglas Kelly MD [address] [place] [address] Dr [address] [place], [place] Hypothyroidism, unspecified; Hyperlipidemia, unspecified Social History Tobacco [...] Associated Diagnosis Comments COMPLETE BLOOD COUNT Routine 02/05/2025 6:15 AM EDT Hypothyroidism, unspecified Hyperlipidemia, unspecified documented in this encounter Results * Complete blood count (02/05/2025 6:15 AM EDT) WBC 7.8 4.8 - 10.8 K/mcL LAB HEMETOLOGY METHOD 02/05/2025 7:[address] [facility] RBC 4.70 4.50 - 5.50 M/mcL LAB HEMETOLOGY METHOD 02/05/2025 7:[address] [facility] Hemoglobin 14.1 13.5 - 17.5 g/dL LAB HEMETOLOGY METHOD 02/05/2025 7:[address] [facility] Hematocrit 42.9 42.0 - 54.0 % LAB HEMETOLOGY METHOD 02/05/2025 7:[address] [facility] MCV 90.7 79.0 - 98.0 FL LAB HEMETOLOGY METHOD 02/05/2025 7:[address] [facility] MCH 29.8 27.0 - 32.0 pcg LAB HEMETOLOGY METHOD 02/05/2025 7:[address] [facility] MCHC 32.9 32.0 - 37.0 g/dL LAB HEMETOLOGY METHOD 02/05/2025 7:[address] [facility] RDW 11.9 11.0 - 15.0 % LAB HEMETOLOGY METHOD 02/05/2025 7:[address] [facility] Platelets 266 130 - 400 K/mcL LAB HEMETOLOGY METHOD 02/05/2025 7:[address] [facility] MPV 9.1 7.0 - 11.0 FL LAB HEMETOLOGY METHOD 02/05/2025 7:[address] [facility] NRBC 0.0 <1.0 % LAB HEMETOLOGY METHOD 02/05/2025 7:[address] [facility] NRBC Absolute 0.00 <0.10 K/mcL LAB HEMETOLOGY METHOD 02/05/2025 7:[address] [facility] Blood Venous blood specimen / Unknown 02/05/2025 6:15 AM EDT 02/05/2025 7:07 AM EDT us Douglas Kelly MD LAB BLOOD ORDERABLES Final Resul t [facility] [address] [place] [address], documented in this encounter Visit Diagnoses Diagnosis Hypothyroidism, unspecified Hyperlipidemia, unspecified documented in this encounter Care Teams Service Unit Operator Oil Well Relationship Specialty Start Date End Date Douglas Kelly MD [address] [place] [address] Dr [address] NIKOLAS Jimenez PCP - General Internal Medicine 09/27/24 documented as of this encounter
--- OUTSIDE RECORDS SUMMARY | 2025-04-02 11:20 | XMS_ITS | Encounter Summary ---
Author Organization [employer] Address [address] [place] [address] Care Team Providers Care Internet Architect Name Role Phone Douglas Kelly MD Primary Care Provider [phone] Encounter Details Date Type Department Care Team (Late st Contact Info) Description 09/27/2024 Lab Requisition [facility] - Main Lab [address] [facility] 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 (CMS/HCC) THYROID STIMULATING HORMONE Routine 09/27/2024 6:37 AM EST Hypothyroidism, unspecified Alcohol use, 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 (CMS/HCC) THYROXINE FREE Routine 09/27/2024 6:37 AM EST Hypothyroidism, unspecified Alcohol use, 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 (CMS/HCC) AMMONIA Routine 09/27/2024 6:37 AM EST Hypothyroidism, unspecified Alcohol use, 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 (CMS/HCC) documented in this encounter Results * Thyroxine free (09/27/2024 6:37 AM EST) Free T4 1.32 0.70 - 1.80 ng/dL LAB CHEMISTRY METHOD 09/27/2024 8:49 AM EST [facility] Blood Venous blood specimen / Unknown 09/27/2024 6:37 AM EST 09/27/2024 7:37 AM EST us Douglas Kelly MD LAB BLOOD ORDERABLES Final Resul t Performing Organization Address [facility] Co de Phone Number [facility] [address] [place] [address], [place] [phone] * Thyroid stimulating hormone (09/27/2024 6:37 AM EST) TSH 1.17 0.40 - 4.00 mcIU/mL LAB CHEMISTRY METHOD 09/27/2024 8:50 AM EST [facility] Blood Venous blood specimen / Unknown 09/27/2024 6:37 AM EST 09/27/2024 7:37 AM EST us Douglas Kelly MD LAB BLOOD ORDERABLES Final Resul t Performing Organization Address [facility] de Phone Number [facility] [address] [place] [address], [place] [phone] * (ABNORMAL) Ammonia (09/27/2024 6:37 AM EST) Ammonia 39(H) 11 - 35 mcmol/L LAB CHEMISTRY METHOD 09/27/2024 8:12 AM EST [facility] Blood Venous blood specimen / Unknown 09/27/2024 6:37 AM EST 09/27/2024 7:37 AM EST us Douglas Kelly MD LAB BLOOD ORDERABLES Final Resul t Performing Organization Address City/[facility]/ZIP Co de Phone Number [facility] [address] [place] [address], [place] [phone] * (ABNORMAL) Lipid panel with reflex to direct LDL (09/27/2024 6:37 AM EST) Cholesterol 157 0 - 200 mg/dL LAB CHEMISTRY METHOD 09/27/2024 8:40 AM EST [facility] Triglycerides 149 0 - 150 mg/dL LAB CHEMISTRY METHOD 09/27/2024 8:40 AM EST [facility] HDL 34(L) >=40 mg/dL LAB CHEMISTRY METHOD 09/27/2024 8:40 AM EST [facility] LDL Calculated 93 0 - 100 mg/dL LAB CHEMISTRY METHOD 09/27/2024 8:40 AM EST [facility] VLDL Cholesterol Valentino 29.8 mg/dL LAB CHEMISTRY METHOD 09/27/2024 8:40 AM EST [facility] Non HDL Chol. 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
--- OUTSIDE RECORDS SUMMARY | 2025-04-02 11:20 | XMS_ITS | Encounter Summary ---
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 Social History Tobacco Use Types Packs/Day Years [...] Priority Date/Time Associated Diagnosis Comments AMMONIA Routine 06/28/2024 7:15 AM EST prison (current) use of opiate analgesic documented in this encounter Results * Ammonia (06/28/2024 7:15 AM EST) Ammonia 30 11 - 35 mcmol/L LAB CHEMISTRY METHOD 06/28/2024 9:20 AM EST [facility] Blood Venous blood specimen / Unknown 06/28/2024 7:15 AM EST 06/28/2024 8:22 AM EST us Douglas Kelly MD LAB BLOOD ORDERABLES Final Resul t [facility] [address] [place] [address], [place] [phone] documented in this encounter Visit Diagnoses Diagnosis 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
--- OUTSIDE RECORDS SUMMARY | 2025-04-02 11:20 | XMS_ITS | Encounter Summary ---
Author Organization [facility] Address [address] [place] [address] Care Team Providers Care K 9 Handler/ Deputy Name Role Phone Douglas Kelly MD Primary Care Provider [phone] Encounter Details Date Type Department Care Team (Late st Contact Info) Description 10/15/2024 Lab Requisition [facility] - Main Lab [address] [place] [address] Douglas Kelly MD [address] [place] [address] [address] [place], [place] Hyperlipidemia, unspecified Social History Tobacco Use Types [...] Procedure Name Priority Date/Time Associated Diagnosis Comments COMPREHENSIVE METABOLIC PANEL Routine 10/15/2024 7:07 AM EDT Hyperlipidemia, unspecified documented in this encounter Results * (ABNORMAL) Comprehensive metabolic panel (10/15/2024 7:07 AM EDT) Sodium 136 133 - 145 mmol/L LAB CHEMISTRY METHOD 10/15/2024 8:43 AM EDT [facility] Potassium 4.5 3.5 - 5.5 mmol/L LAB CHEMISTRY METHOD 10/15/2024 8:43 AM EDT [facility] Chloride 106 96 - 110 mmol/L LAB CHEMISTRY METHOD 10/15/2024 8:43 AM EDT [facility] CO2 25 21 - 32 mmol/L LAB CHEMISTRY METHOD 10/15/2024 8:43 AM EDT [facility] Anion Gap 5 3 - 11 LAB CHEMISTRY METHOD 10/15/2024 8:43 AM [facility] Glucose 102(H) 70 - 100 mg/dL LAB CHEMISTRY METHOD 10/15/2024 8:43 AM [facility] BUN 9 5 - 25 mg/dL LAB CHEMISTRY METHOD 10/15/2024 8:43 AM [facility] Creatinine 0.70 0.70 - 1.30 mg/dL LAB CHEMISTRY METHOD 10/15/2024 8:43 AM [facility] eGFR 104 >=60 mL/min/1. 73m2 LAB CHEMISTRY METHOD 10/15/2024 8:43 AM [facility] Comment:Calculation based on the Chronic Kidney Disease Epidemiology Collaboration (CKD-EPI) equation refit without adjustment for race. BUN/Creatinine Ratio 12.9 LAB CHEMISTRY METHOD 10/15/2024 8:43 AM [facility] Calcium 9.4 8.5 - 10.5 mg/dL LAB CHEMISTRY METHOD 10/15/2024 8:43 AM [facility] AST (SGOT) 10 10 - 42 unit/L LAB CHEMISTRY METHOD 10/15/2024 8:43 AM [facility] ALT (SGPT) 19 10 - 60 unit/L LAB CHEMISTRY METHOD 10/15/2024 8:43 AM [facility] Alkaline Phosphatase 118 42 - 121 unit/L LAB CHEMISTRY METHOD 10/15/2024 8:43 AM [facility] Total Protein 7.6 6.0 - 8.0 g/dL LAB CHEMISTRY METHOD 10/15/2024 8:43 AM [facility] Albumin 3.8 3.2 - 5.0 g/dL LAB CHEMISTRY METHOD 10/15/2024 8:43 AM [facility] Total Bilirubin 0.6 0.0 - 1.4 mg/dL LAB CHEMISTRY METHOD 10/15/2024 8:43 AM EDT [facility] Blood Venous blood specimen / Unknown 10/15/2024 7:07 AM EDT 10/15/2024 7:46 AM EDT us Douglas Kelly MD LAB BLOOD ORDERABLES Final Resul t [facility] [address] [place] [address], documented in this encounter Visit Diagnoses Diagnosis Hyperlipidemia, unspecified documented in this encounter Care Teams K 9 Handler/ Deputy Relationship Specialty Start Date End Date Douglas Kelly MD [address] [place] [address] [address] [place], [place] PCP - General Internal Medicine 09/27/24 documented as of this encounter
== END 2025-04-02 10:53 | disposition home or self-care (01) ==
LOC: HO.HSM 10:28
PROVIDERS: PCP Hospitalist; Referring Provider Hospitalist; Visit Provider Psychiatry & Neurology Neurology
DX: G40.909 Epilepsy, unspecified, not intractable, without status epilepticus (principal)
CPT/HCPCS: 99214

== ENCOUNTER → 2025-04-02 10:27 | Outpatient (BNVA) | payer MEDICARE, MEDICAID, SELFPAY | PROVIDERS: PCP Hospitalist; Referring Provider Hospitalist; Visit Provider Psychiatry & Neurology Neurology | DX: G40.909 Epilepsy, unspecified, not intractable, without status epilepticus (principal); Z79.899 Other long term (current) drug therapy | CPT/HCPCS: 99212 ==

== ENCOUNTER 2025-04-10 08:38 | Outpatient (REF) | payer MEDICARE, MEDICAID, SELFPAY ==
--- OUTSIDE RECORDS SUMMARY | 2025-04-10 09:10 | XMS_ITS | Encounter Summary ---
Author Organization [employer] Address [address] [place] [address] Care Team Providers Care High Frequency Mill Operator Name Role Phone Douglas Kelly MD Primary Care Provider [phone] Encounter Details Date Type Department Care Team (Late st Contact Info) Description 11/04/2024 Lab Requisition [facility] - Main Lab [address] [facility] [place] [address] Douglas Kelly MD [address] [place] [address] [address] [place], [place] Other fpc (current) drug therapy Social History Tobacco Use [...] Routine 11/04/2024 4 :48 AM EDT Other ocean transportation intermediary (current) drug therapy VALPROIC ACID LEVEL, TOTAL Routine 11/04/2024 4:48 AM EDT Other fpc (current) drug therapy documented in this encounter [...] investigational or for research. Test performed at [facility], [address], [place] [address] Destinee Grace MD, PhD - Gear Setter Blood Venous blood specimen / Unknown 11/04/2024 4:48 AM EDT 11/04/2024 5:22 AM EDT us Douglas Kelly MD LAB BLOOD ORDERABLES Final Resul t [facility] [address] [place] [address] * Valproic acid level, total (11/04/2024 4:48 AM EDT) [facility] Signature Valproic Acid, Total 50 50 - 100 mcg/mL LAB CHEMISTRY METHOD 11/04/2024 5:55 AM EDT [facility] Blood Venous blood specimen / Unknown 11/04/2024 4:48 AM EDT 11/04/2024 5:22 AM EDT us Douglas Kelly MD LAB BLOOD ORDERABLES Final Resul t [facility] [address] [place] [address], [place] [phone] documented in this encounter Visit Diagnoses Diagnosis Other ocean transportation intermediary (current) drug therapy documented in this encounter Care Teams High Frequency Mill Operator Relationship Specialty Start Date End Date Douglas Kelly MD [address] [place] [address] [facility] [place], [place] PCP - General Internal Medicine 09/27/24 documented as of this encounter
--- OUTSIDE RECORDS SUMMARY | 2025-04-10 09:10 | XMS_ITS | Encounter Summary ---
Author Organization [employer] Address [address] [place] [address] Care Team Providers Care Med Dir Name Role Phone Douglas Kelly MD Primary Care Provider [phone] Encounter Details Date Type Department Care Team (Late st Contact Info) Description 08/08/2024 Lab Requisition [facility] - Main Lab [address] [place] [address] Douglas Kelly MD [address] [place] [address] [address] [place] Epilepsy, unspecified, not intractable, without status epilepticus [...] AM EST) WBC 7.3 4.8 - 10.8 K/[facility] LAB HEMETOLOGY METHOD 08/08/2024 5:16 AM EST [facility] LAB RBC 4.60 4.50 - 5.50 M/[facility] LAB HEMETOLOGY METHOD 08/08/2024 5:16 AM EST [facility] LAB Hemoglobin 14.2 13.5 - 17.5 g/dL LAB HEMETOLOGY METHOD 08/08/2024 5:16 AM [facility] LAB Hematocrit 42.4 42.0 - 54.0 % LAB HEMETOLOGY METHOD 08/08/2024 5:16 AM [facility] LAB MCV 91.8 79.0 - 98.0 FL LAB HEMETOLOGY METHOD 08/08/2024 5:16 AM [facility] LAB MCH 30.7 27.0 - 32.0 pcg LAB HEMETOLOGY METHOD 08/08/2024 5:16 AM [facility] LAB MCHC 33.5 32.0 - 37.0 g/dL LAB HEMETOLOGY METHOD 08/08/2024 5:16 AM [facility] LAB RDW 11.8 11.0 - 15.0 % LAB HEMETOLOGY METHOD 08/08/2024 5:16 AM [facility] LAB Platelets 267 130 - 400 K/mcL LAB HEMETOLOGY METHOD 08/08/2024 5:16 AM [facility] LAB MPV 9.0 7.0 - 11.0 FL LAB HEMETOLOGY METHOD 08/08/2024 5:16 AM [facility] LAB NRBC 0.0 <1.0 % LAB HEMETOLOGY METHOD 08/08/2024 5:16 AM [facility] LAB NRBC Absolute 0.00 <0.10 K/mcL LAB HEMETOLOGY METHOD 08/08/2024 5:16 AM [facility] Neutrophils Relative 57.0 % LAB HEMETOLOGY METHOD 08/08/2024 5:16 AM [facility] Lymphocytes Relative 27.8 % LAB HEMETOLOGY METHOD 08/08/2024 5:16 AM [facility] Monocytes Relative 10.2 % LAB HEMETOLOGY METHOD 08/08/2024 5:16 AM EST [facility] LAB Eosinophils Relative 2.1 % LAB HEMETOLOGY METHOD 08/08/2024 5:16 AM [facility] Basophils Relative 0.8 % LAB HEMETOLOGY METHOD 08/08/2024 5:16 AM [facility] Immature Granulocytes Relative 2.1 % LAB HEMETOLOGY METHOD 08/08/2024 5:16 AM [facility] LAB Neutrophils Absolute 4.16 1.50 - 7.00 K/mcL LAB HEMETOLOGY METHOD 08/08/2024 5:16 AM EST [facility] LAB Lymphocytes Absolute 2.03 1.00 - 5.00 K/mcL LAB HEMETOLOGY METHOD 08/08/2024 5:16 AM [facility] Monocytes Absolute 0.74 0.20 - 1.00 K/mcL LAB HEMETOLOGY METHOD 08/08/2024 5:16 AM EST [facility] LAB Eosinophils Absolute 0.15 0.00 - 0.50 K/mcL LAB HEMETOLOGY METHOD 08/08/2024 5:16 AM EST [facility] Basophils Absolute 0.06 0.00 - 0.20 K/mcL LAB HEMETOLOGY METHOD 08/08/2024 5:16 AM [facility] Immature Granulocytes Absolute 0.15(H) 0.00 - 0.03 K/mcL LAB HEMETOLOGY METHOD 08/08/2024 5:16 AM EST [facility] Blood Venous blood specimen / Unknown 08/08/2024 4:15 AM EST 08/08/2024 5:06 AM EST us Douglas Kelly MD LAB BLOOD ORDERABLES Final Resul t [facility] [address] [place] [address], documented in this encounter Visit Diagnoses Diagnosis Epilepsy, unspecified, not intractable, without status epilepticus (CMS/HCC V24, CMS/HCC V28) documented in this encounter Care Teams Med Dir Relationship Specialty Start Date End Date Douglas Kelly MD [address] [place] [address] Dr [address] NIKOLAS Jimenez PCP - General Internal Medicine 09/27/24 documented as of this encounter
--- OUTSIDE RECORDS SUMMARY | 2025-04-10 09:10 | XMS_ITS | Encounter Summary ---
Author Organization [employer] Address [address] [facility] [address] [place] [address] Care Team Providers Care Accounting Lecturer Name Role Phone Unavailable Primary Care Provider Unavailabl e Encounter Details Date Type Department Care Team (Latest Contact Info) Description 04/05/2019 Abstract [facility] CONVERSIONS Dental, Provider, DDS Social History Tobacco Use Types Packs/Day Years Used Date Smoking Tobacco: Never Assessed Sex and Gender Information Value Date Recorded Sex Assigned at Male 06/06/2022 10:32 AM EDT Legal Sex Male 10:32 AM EDT Gender Identity Not on file Sexual Orientation Not on file documented as of this encounter Plan of Treatment Not on file documented as of this encounter Visit Diagnoses Not on filedocumented in this encounter
--- OUTSIDE RECORDS SUMMARY | 2025-04-10 09:10 | XMS_ITS | Encounter Summary ---
Author Organization [employer] Address [address] [place] [address] Care Team Providers Care Woven Paper Hat Mender Name Role Phone Douglas Kelly MD Primary Care Provider Encounter Details Date Type Department Care Team (Late st Contact Info) Description 03/27/2025 Lab Requisition [facility] - Main Lab [address] [facility] [place] [address] Douglas Kelly MD [address] [place] [address] Dr [address] [place] Hypothyroidism, unspecified; Hyperlipidemia, unspecified Social History Tobacco [...] * Thyroxine free (03/27/2025 6:45 AM EDT) [facility] Signature Free T4 1.31 0.70 - 1.80 ng/dL LAB CHEMISTRY METHOD 03/27/2025 9:55 AM EDT [facility] Blood Venous blood specimen / Unknown 03/27/2025 6:45 AM EDT 03/27/2025 7:49 AM EDT us Douglas Kelly MD LAB BLOOD ORDERABLES Final Resul t Performing Organization Address [facility] de Phone Number [facility] [address] [place] [address], [place] [phone] * Prostate specific antigen screen (03/27/2025 6:45 AM EDT) PSA 0.73 0.00 - 4.00 ng/mL LAB CHEMISTRY METHOD 03/27/2025 9:54 AM EDT [facility] Blood Venous blood specimen / Unknown 03/27/2025 6:45 AM EDT 03/27/2025 7:49 AM EDT Narrative [facility] - 03/27/2025 9:54 AM EDT The Siemens Advia Centaur Chemiluminescent Immunoassay is used. Results obtained with different assay methods or kits cannot be used interchangeably. Results cannot be interpreted as absolute evidence of the presence or absence of malignant disease. us Douglas Kelly MD LAB BLOOD ORDERABLES Final Resul t Performing Organization Address [facility] Co de Phone Number [facility] [address] [place] [address], [place] [phone] * Thyroid stimulating hormone (03/27/2025 6:45 AM EDT) TSH 1.30 0.40 - 4.00 mcIU/mL LAB CHEMISTRY METHOD 03/27/2025 10:39 AM EDT [facility] Blood Venous blood specimen / Unknown 03/27/2025 6:45 AM EDT 03/27/2025 7:49 AM EDT us Douglas Kelly MD LAB BLOOD ORDERABLES Final Resul t Performing Organization Address City/[facility]/ZIP Co de Phone Number [facility] [address] [place] [address], [place] [phone] * Ammonia (03/27/2025 6:45 AM EDT) Ammonia 33 11 - 35 mcmol/L LAB CHEMISTRY METHOD 03/27/2025 8:24 AM EDT [facility] Blood Venous blood specimen / Unknown 03/27/2025 6:45 AM EDT 03/27/2025 7:49 AM EDT us Douglas Kelly MD LAB BLOOD ORDERABLES Final Resul t Performing Organization Address [facility] de Phone Number [facility] [address] [place] [address], [place] [phone] * (ABNORMAL) Lipid panel with reflex to direct LDL (03/27/2025 6:45 AM EDT) Pathologist [facility] Cholesterol 164 0 - 200 mg/dL LAB CHEMISTRY METHOD 03/27/2025 8:58 AM EDT [facility] Triglycerides 116 0 - 150 mg/dL LAB CHEMISTRY METHOD 03/27/2025 8:58 AM EDT [facility] HDL 33(L) >=40 mg/dL LAB CHEMISTRY METHOD 03/27/2025 8:58 AM EDT [facility] LDL Calculated 108(H) 0 - 100 mg/dL LAB CHEMISTRY METHOD 03/27/2025 8:58 AM EDT [facility] Comment:Estimated LDL Calcul ated using equation: Total cholesterol - HDL cholesterol - (Triglycerides/5) VLDL Cholesterol Valentino 23.2 mg/dL LAB CHEMISTRY METHOD 03/27/2025 8:58 AM EDT [facility] Non HDL Chol. (LDL+VLDL) 131 <145 mg/dL LAB CHEMISTRY METHOD 03/27/2025 8:58 AM EDT [facility] Chol/HDL Ratio 5.0(H) 0.0 - 4.4 LAB CHEMISTRY METHOD 03/27/2025 8:58 AM EDT [facility] Blood Venous blood specimen / Unknown 03/27/2025 6:45 AM EDT 03/27/2025 7:49 AM EDT us Douglas Kelly MD LAB BLOOD ORDERABLES Final Resul t [facility] [address] [place] [address], documented in this encounter Visit Diagnoses Diagnosis Hypothyroidism, unspecified Hyperlipidemia, unspecified documented in this encounter Care Teams Woven Paper Hat Mender Relationship Specialty Start Date End Date Douglas Kelly MD [address] [facility] [address] [place], [place] PCP - General Internal Medicine 09/27/24 documented as of this encounter
--- OUTSIDE RECORDS SUMMARY | 2025-04-10 09:10 | XMS_ITS | Encounter Summary ---
Author Organization [facility] Address [address] [place] [address] Care Team Providers Care Tool Machine Setup Operator Name Role Phone Douglas Kelly MD Primary Care Provider [phone] Encounter Details Date Type Department Care Team (Late st Contact Info) Description 12/25/2024 Lab Requisition [facility] - Main Lab [address] [place] [address] Douglas Kelly MD [address] [place] [address] [address] [place], [place] Other nursing home (current) drug therapy Social History Tobacco Use [...] AMMONIA Routine 12/25/2024 6:30 AM EDT Other extermination inspector (current) drug therapy documented in this encounter Results * (ABNORMAL) Ammonia (12/25/2024 6:30 AM EDT) Ammonia 55(H) 11 - 35 mcmol/L LAB CHEMISTRY METHOD 12/25/2024 7:30 AM EDT [facility] Blood Venous blood specimen / Unknown 12/25/2024 6:30 AM EDT 12/25/2024 7:03 AM EDT us Douglas Kelly MD LAB BLOOD ORDERABLES Final Resul t [facility] [address] [place] [address], documented in this encounter Visit Diagnoses Diagnosis Other nursing home (current) drug therapy documented in this encounter Care Teams Tool Machine Setup Operator Relationship Specialty Start Date End Date Douglas Kelly MD [address] [place] [address] Dr [address] NIKOLAS Jimenez PCP - General Internal Medicine 09/27/24 documented as of this encounter
--- OUTSIDE RECORDS SUMMARY | 2025-04-10 09:10 | XMS_ITS | Clinical Summary ---
Author Organization 299 [facility] Address [address] [place] [address] Phone Care Team Providers Care Police Or Patrol Park Officer Name Role Phone Douglas Kelyl MD Primary Care Provider [phone] Encounters Date Type Department Care Team Description 03/27/2025 Lab Requisition [facility] Lab [address] [place] [address] Douglas Kelly MD Hypothyroidism, unspecified; Hyperlipidemia, unspecified 02/05/2025 Lab Requisition [facility] Lab [address] [place] [address] Douglas Kelly MD Hypothyroidism, unspecified; [...] 07/10/2022 Social Influencers of Health Screening 07/10/2022 Depression Screening 08/07/2024 COVID-19 Vaccine (1 - 2023-2 5 season) 2025 Influenza Vaccine (#1) 2025 Cholesterol Screening (Lipid [...] LAB CHEMISTRY METHOD 03/27/2025 9:54 AM EDT [facility] ([facility] Blood Venous blood specimen / [...] Resul t [facility] [address] [place] [address], [place] [phone] * (ABNORMAL) Lipid panel with reflex to direct LDL (03/27/2025 6:45 AM EDT) Cholesterol 164 0 - 200 mg/dL LAB CHEMISTRY METHOD 03/27/2025 8:58 AM EDT [facility] Triglycerides 116 0 - 150 mg/dL LAB CHEMISTRY METHOD 03/27/2025 8:58 AM EDT [facility] HDL 33(L) >=40 mg/dL LAB CHEMISTRY METHOD 03/27[facility]2025 8:[facility] LDL Calculated 108(H) 0 - 100 mg/dL LAB CHEMISTRY METHOD 03/27/2025 8:58 AM T [facility] Comment:Estimated LDL Calcul ated using equation: Total cholesterol - HDL cholesterol - (Triglycerides/5) VLDL Cholesterol Valentino 23.2 mg/dL LAB CHEMISTRY METHOD 03/27/2025 8:58 AM EDT [facility] Non HDL Chol. (LDL+VLDL) 131 <145 mg/dL LAB CHEMISTRY METHOD 03/27/2025 8:58 AM EDT [facility] Chol/HDL Ratio 5.0(H) 0.0 - 4.4 LAB CHEMISTRY METHOD 03/27/2025 8:[address] [facility] Blood Venous blood specimen / Unknown 03/27/2025 6:45 AM EDT 03/27/2025 7:49 AM EDT us Douglas Kelly MD LAB BLOOD ORDERABLES Final Resul t Performing Organization Address [facility] de Phone Number [facility] [address] [place] [address], [place] [phone] * Thyroid stimulating hormone (03/27/2025 6:45 AM EDT) TSH 1.30 0.40 - 4.00 mcIU/mL LAB CHEMISTRY METHOD 03/27/2025 10:39 AM EDT [facility] Blood Venous blood specimen / Unknown 03/27/2025 6:45 AM EDT 03/27/2025 7:49 AM EDT us Douglas Kelly MD LAB BLOOD ORDERABLES Final Resul t Performing Organization Address [facility] de Phone Number [facility] [address] [place] [address], [place] [phone] * Thyroxine free (03/27/2025 6:45 AM EDT) Free T4 1.31 0.70 - 1.80 ng/dL LAB CHEMISTRY METHOD 03/27/2025 9:55 AM EDT [facility] Blood Venous blood specimen / Unknown 03/27/2025 6:45 AM EDT 03/27/2025 7:49 AM EDT us Douglas Klely MD LAB BLOOD ORDERABLES Final Resul t Performing Organization Address [facility]/ZIP Co de Phone Number [facility] [address] [place] [address], [place] [phone] * Ammonia (03/27/2025 6:45 AM EDT) Ammonia 33 11 - 35 mcmol/L LAB CHEMISTRY METHOD 03/27/2025 8:24 AM EDT [facility] Blood Venous blood specimen / Unknown 03/27/2025 6:45 AM EDT 03/27/2025 7:49 AM EDT Douglas Kelly MD LAB BLOOD ORDERABLES Final Resul t [facility] [address] [place] [address], * Complete blood count (02/05/2025 6:15 AM EDT) WBC 7.8 4.8 - 10.8 K/mcL LAB HEMETOLOGY METHOD 02/05/2025 7:[address] [facility] RBC 4.70 4.50 - 5.50 M/mcL LAB HEMETOLOGY METHOD 02/05/2025 7:[address] [facility] Hemoglobin 14.1 13.5 - 17.5 g/dL LAB HEMETOLOGY METHOD 02/05/2025 7:[address] [facility] Hematocrit 42.9 42.0 - 54.0 % LAB HEMETOLOGY METHOD 02/05/2025 7:[address] [facility] MCV 90.7 79.0 - 98.0 FL LAB HEMETOLOGY METHOD 02/05/2025 7:[address] [facility] MCH 29.8 27.0 - 32.0 pcg LAB HEMETOLOGY METHOD 02/05/2025 7:[address] [facility] MCHC 32.9 32.0 - 37.0 g/dL LAB HEMETOLOGY METHOD 02/05/2025 7:[address] [facility] RDW 11.9 11.0 - 15.0 % LAB HEMETOLOGY METHOD 02/05/2025 7:[address] [facility] Platelets 266 130 - 400 K/mcL LAB HEMETOLOGY METHOD 02/05/2025 7:27 AM EDT [facility] MPV 9.1 7.0 - 11.0 FL LAB HEMETOLOGY METHOD 02/05/2025 7:27 AM EDT [facility] NRBC 0.0 <1.0 % LAB HEMETOLOGY METHOD 02/05/2025 7:27 AM EDT [facility] NRBC Absolute 0.00 <0.10 K/mcL LAB HEMETOLOGY METHOD 02/05/2025 7:27 AM EDT [facility] Blood Venous blood specimen / Unknown 02/05/2025 6:15 AM EDT 02/05/2025 7:07 AM EDT us Douglas Kelly MD LAB BLOOD ORDERABLES Final Resul t [facility] [address] [place] [address], [place] [phone] from Last 3 Months Insurance MEDICARE Care Teams Police Or Patrol Park Officer Relationship Specialty Start Date End Date Douglas Kelly MD [address] [place] [address] [place] [address] PCP - General Internal Medicine 09/27/24
--- OUTSIDE RECORDS SUMMARY | 2025-04-10 09:10 | XMS_ITS | Encounter Summary ---
Author Organization [employer] Address [address] [place] [address] Care Team Providers Care Glove Examiner Name Role Phone Douglas Kelly MD Primary Care Provider [phone] Encounter Details Date Type Department Care Team (Late st Contact Info) Description 09/27/2024 Lab Requisition [facility] - Main Lab [address] [facility] [email or web address] [address] Douglas Kelly MD [address] [place] [address] [address] [place], [place] Hypothyroidism, unspecified; Alcohol use, unspecified with alcohol-induced [...] LAB CHEMISTRY METHOD 09/27/2024 8:49 AM EST [facility] Blood Venous blood specimen / Unknown 09/27/2024 6:37 AM EST 09/27/2024 7:37 AM EST us Douglas Kelly MD LAB BLOOD ORDERABLES Final Resul t Performing Organization Address [facility] Co de Phone Number [facility] [address] [place] [address], [place] [phone] * Thyroid stimulating hormone (09/27/2024 6:37 AM EST) TSH 1.17 0.40 - 4.00 mcIU/mL LAB CHEMISTRY METHOD 09/27/2024 8:50 AM EST [facility] Blood Venous blood specimen / Unknown 09/27/2024 6:37 AM EST 09/27/2024 7:37 AM EST us Douglas Kelly MD LAB BLOOD ORDERABLES Final Resul t Performing Organization Address [facility] de Phone Number [facility] [address] [place] [address], [place] [phone] * (ABNORMAL) Ammonia (09/27/2024 6:37 AM EST) Ammonia 39(H) 11 - 35 mcmol/L LAB CHEMISTRY METHOD 09/27/2024 8:12 AM EST [facility] Blood Venous blood specimen / Unknown 09/27/2024 6:37 AM EST 09/27/2024 7:37 AM EST us Douglas Kelly MD LAB BLOOD ORDERABLES Final Resul t Performing Organization Address City/[facility]/ZIP Co de Phone Number [facility] [address] [place] [address], [place] [phone] * (ABNORMAL) Lipid panel with reflex to direct LDL (09/27/2024 6:37 AM EST) Cholesterol 157 0 - 200 mg/dL LAB CHEMISTRY METHOD 09/27/2024 8:40 AM EST [facility] Triglycerides 149 0 - 150 mg/dL LAB CHEMISTRY METHOD 09/27/2024 8:40 AM EST [facility] HDL 34(L) >=40 mg/dL LAB CHEMISTRY METHOD 09/27/2024 8:40 AM EST [facility] LDL Calculated 93 0 - 100 mg/dL LAB CHEMISTRY METHOD 09/27/2024 8:40 AM EST [facility] VLDL Cholesterol Valentino 29.8 mg/dL LAB CHEMISTRY METHOD 09/27/2024 8:40 AM EST [facility] Non HDL Chol. 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
--- OUTSIDE RECORDS SUMMARY | 2025-04-10 09:10 | XMS_ITS | Encounter Summary ---
Author Organization [facility] Address [address] [place] [address] Care Team Providers Care Aircraft Riveter Name Role Phone Douglas Kelly MD Primary Care Provider Encounter Details Date Type Department Care Team (Late st Contact Info) Description 10/15/2024 Lab Requisition [facility] - Main Lab [address] [place] [address] Douglas Kelly MD [address] [place] [address] [address] [place], [place] Hyperlipidemia, unspecified Social History Tobacco Use [...] LAB CHEMISTRY METHOD 10/15/2024 8:43 AM EDT [facility] Potassium 4.5 3.5 - 5.5 mmol/L LAB CHEMISTRY METHOD 10/15/2024 8:43 AM EDT [facility] Chloride 106 96 - 110 mmol/L LAB CHEMISTRY METHOD 10/15/2024 8:43 AM EDT [facility] CO2 25 21 - 32 mmol/L LAB CHEMISTRY METHOD 10/15/2024 8:43 AM EDT [facility] Anion Gap 5 3 - 11 LAB CHEMISTRY METHOD 10/15/2024 8:43 AM [facility] Glucose 102(H) 70 - 100 mg/dL LAB CHEMISTRY METHOD 10/15/2024 8:43 AM [facility] BUN 9 5 - 25 mg/dL LAB CHEMISTRY METHOD 10/15/2024 8:43 AM [facility] Creatinine 0.70 0.70 - 1.30 mg/dL LAB CHEMISTRY METHOD 10/15/2024 8:43 AM [facility] eGFR 104 >=60 mL/min/1. 73m2 LAB CHEMISTRY METHOD 10/15/2024 8:43 AM [facility] Comment:Calculation based on the Chronic Kidney Disease Epidemiology Collaboration (CKD-EPI) equation refit without adjustment for race. BUN/Creatinine Ratio 12.9 LAB CHEMISTRY METHOD 10/15/2024 8:43 AM [facility] Calcium 9.4 8.5 - 10.5 mg/dL LAB CHEMISTRY METHOD 10/15/2024 8:43 AM [facility] AST (SGOT) 10 10 - 42 unit/L LAB CHEMISTRY METHOD 10/15/2024 8:43 AM [facility] ALT (SGPT) 19 10 - 60 unit/L LAB CHEMISTRY METHOD 10/15/2024 8:43 AM [facility] Alkaline Phosphatase 118 42 - 121 unit/L LAB CHEMISTRY METHOD 10/15/2024 8:43 AM [facility] Total Protein 7.6 6.0 - 8.0 g/dL LAB CHEMISTRY METHOD 10/15/2024 8:43 AM [facility] Albumin 3.8 3.2 - 5.0 g/dL LAB CHEMISTRY METHOD 10/15/2024 8:43 AM [facility] Total Bilirubin 0.6 0.0 - 1.4 mg/dL LAB CHEMISTRY METHOD 10/15/2024 8:43 AM EDT [facility] Blood Venous blood specimen / Unknown 10/15/2024 7:07 AM EDT 10/15/2024 7:46 AM EDT us Douglas Kelly MD LAB BLOOD ORDERABLES Final Resul t [facility] ([facility]) [facility] [address] [place] [address], documented in this encounter Visit Diagnoses Diagnosis Hyperlipidemia, unspecified documented in this encounter Care Teams Aircraft Riveter Relationship Specialty Start Date End Date Douglas Kelly MD [address] [place] [address] Dr [address] [place], [place] PCP - General Internal Medicine 09/27/24 documented as of this encounter
--- OUTSIDE RECORDS SUMMARY | 2025-04-10 09:10 | XMS_ITS | Encounter Summary ---
Author Organization [facility] Address [address] [place] [address] Care Team Providers Care Foundry Worker General Name Role Phone Douglas Kelly MD Primary Care Provider [phone] Encounter Details Date Type Department Care Team (Late st Contact Info) Description 07/10/2024 Lab Requisition [facility] - Main Lab [address] [place] [address] Douglas Kelly MD [address] [place] [address] [address] [place], [place] Chronic ischemic heart disease, unspecified Social [...] LAB HEMETOLOGY METHOD 07/10/2024 6:44 AM EST [facility] RBC 4.50 4.50 - 5.50 M/mcL LAB HEMETOLOGY METHOD 07/10/2024 6:44 AM EST [facility] Hemoglobin 13.9 13.5 - 17.5 g/dL LAB HEMETOLOGY METHOD 07/10/2024 6:44 AM EST [facility] Hematocrit 40.4(L) 42.0 - 54.0 % LAB HEMETOLOGY METHOD 07/10/2024 6:44 AM EST [facility] MCV 90.6 79.0 - 98.0 FL LAB HEMETOLOGY METHOD 07/10/2024 6:44 AM EST [facility] MCH 31.2 27.0 - 32.0 pcg LAB HEMETOLOGY METHOD 07/10/2024 6:44 AM [facility] MCHC 34.4 32.0 - 37.0 g/dL LAB HEMETOLOGY METHOD 07/10/2024 6:44 AM EST [facility] RDW 11.9 11.0 - 15.0 % LAB HEMETOLOGY METHOD 07/10/2024 6:44 AM [facility] Platelets 232 130 - 400 K/mcL LAB HEMETOLOGY METHOD 07/10/2024 6:44 AM [facility] MPV 8.9 7.0 - 11.0 FL LAB HEMETOLOGY METHOD 07/10/2024 6:44 AM EST [facility] NRBC 0.0 <1.0 % LAB HEMETOLOGY METHOD 07/10/2024 6:44 AM [facility] NRBC Absolute 0.00 <0.10 K/mcL LAB HEMETOLOGY METHOD 07/10/2024 6:44 AM [facility] Blood Venous blood specimen / Unknown 07/10/2024 5:50 AM EST 07/10/2024 6:18 AM EST us Douglas Kelly MD LAB BLOOD ORDERABLES Final Resul t [facility] [address] [place] [address], documented in this encounter Visit Diagnoses Diagnosis Chronic ischemic heart disease, unspecified documented in this encounter Care Teams Foundry Worker General Relationship Specialty Start Date End Date Douglas Kelly MD [address] [place] [address] Dr [address] [facility] NIKOLAS Jimenez PCP - General Internal Medicine 09/27/24 documented as of this encounter
--- OUTSIDE RECORDS SUMMARY | 2025-04-10 09:10 | XMS_ITS | Encounter Summary ---
Author Organization [facility] Address [address] [place] [address] Care Team Providers Care Hand Hide Stretcher Name Role Phone Douglas Kelly MD Primary Care Provider [phone] Encounter Details Date Type Department Care Team (Late st Contact Info) Description 02/05/2025 Lab Requisition [facility] - Main Lab [address] [place] [address] Douglas Kelly MD [address] [place] [address] Dr [address] [place], [place] Hypothyroidism, unspecified; Hyperlipidemia, unspecified Social History [...] LAB HEMETOLOGY METHOD 02/05/2025 7:27 AM EDT [facility] RBC 4.70 4.50 - 5.50 M/mcL LAB HEMETOLOGY METHOD 02/05/2025 7:27 AM EDT [facility] Hemoglobin 14.1 13.5 - 17.5 g/dL LAB HEMETOLOGY METHOD 02/05/2025 7:27 AM EDT [facility] Hematocrit 42.9 42.0 - 54.0 % LAB HEMETOLOGY METHOD 02/05/2025 7:27 AM EDT [facility] MCV 90.7 79.0 - 98.0 FL LAB HEMETOLOGY METHOD 02/05/2025 7:27 AM EDT [facility] MCH 29.8 27.0 - 32.0 pcg LAB HEMETOLOGY METHOD 02/05/2025 7:27 AM EDT [facility] MCHC 32.9 32.0 - 37.0 g/dL LAB HEMETOLOGY METHOD 02/05/2025 7:27 AM EDT [facility] RDW 11.9 11.0 - 15.0 % LAB HEMETOLOGY METHOD 02/05/2025 7:27 AM EDT [facility] Platelets 266 130 - 400 K/mcL LAB HEMETOLOGY METHOD 02/05/2025 7:27 AM EDT [facility] MPV 9.1 7.0 - 11.0 FL LAB HEMETOLOGY METHOD 02/05/2025 7:27 AM EDT [facility] NRBC 0.0 <1.0 % LAB HEMETOLOGY METHOD 02/05/2025 7:27 AM EDT [facility] NRBC Absolute 0.00 <0.10 K/mcL LAB HEMETOLOGY METHOD 02/05/2025 7:27 AM EDT [facility] Blood Venous blood specimen / Unknown 02/05/2025 6:15 AM EDT 02/05/2025 7:07 AM EDT us Douglas Kelly MD LAB BLOOD ORDERABLES Final Resul t [facility] [address] [place] [address], documented in this encounter Visit Diagnoses Diagnosis Hypothyroidism, unspecified Hyperlipidemia, unspecified documented in this encounter Care Teams Hand Hide Stretcher Relationship Specialty Start Date End Date Douglas Kelly MD [address] [place] [address] Dr [address] NIKOLAS Jimenez PCP - General Internal Medicine 09/27/24 documented as of this encounter
--- OUTSIDE RECORDS SUMMARY | 2025-04-10 09:10 | XMS_ITS | Encounter Summary ---
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 analgesic Social History [...] Comments AMMONIA Routine 06/28/2024 7:15 AM EST detention (current) use of opiate analgesic documented in this encounter Results * Ammonia (06/28/2024 7:15 AM EST) Ammonia 30 11 - 35 mcmol/L LAB CHEMISTRY METHOD 06/28/2024 9:20 AM EST [facility] Blood Venous blood specimen / Unknown 06/28/2024 7:15 AM EST 06/28/2024 8:22 AM EST us Douglas Kelly MD LAB BLOOD ORDERABLES Final Resul t [facility] [address] [place] [address], [place] [phone] documented in this encounter Visit Diagnoses Diagnosis termite renewal 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
--- OUTSIDE RECORDS SUMMARY | 2025-04-10 09:10 | XMS_ITS | Clinical Summary ---
Author Organization [employer] Address [address] [place] [address] Care Team Providers Care Corrections Nurse Name Role Phone Unavailable Primary Care Provider Unavailabl e Social History Tobacco Use Types Packs/Day Years Used Date Smoking Tobacco: Never Assessed Sex and Gender Information Value Date Recorded Sex Assigned at Male 06/06/2022 10:32 AM EDT Legal Sex Male 10:32 AM EDT Gender Identity Not on file Sexual Orientation Not on file Plan of Treatment Health Maintenance Due Date Last Done Comments CT Colonography 1961 Colonoscopy 1961 Colorectal Cancer Screening 1961 Depression Screening 1961 FIT DNA/Cologuard 1961 FIT 1961 FOBT 1961 Lipid Panel 1961 Sigmoidoscopy 1961 Disability Screening 1961 Alcohol/Substance Use Screening 1973 Tobacco Screening 1973 DTaP/Tdap/Td Vaccines (1 - Tdap) 01/19/1980 Pneumococcal Vaccine: 50+ Ye ars (1 of 1 - PCV) 2011 Zoster Vaccines (1 of 2) 2011 COVID-19 Vaccine ( - 2023-2 5 season) 2024 Influenza Vaccine (#1) 2025 RSV Patients and Pa tients Aged 60 years or older (1 - 1-dose 75+ series) 01/19/2036 HIB [...] patient's age to complete this topic Meningococcal Vaccine Aged Out No farhad david eligible based on patient's age to complete this topic RSV under 20 months Aged Out No longe r eligible based on patient's age to complete this topic Rotavirus Vaccines Aged Out No longer eligible based on patient's age to complete this topic
--- NOTE | 2025-04-10 09:47 | EEG_ITS ---
Room performed: 402 Reason: seizure Medications: levetiracetam, divalproex History: alcohol abuse, bipolar disorder, seizure, traumatic brain injury - pt denies history of sz but was treated twice in ED for sz Cotton Weigher Operator Comments Photic Stimulation: completed Hyperventilation: omitted Behavioral state: cooperative State of consciousness: awake and sleep Skull defect: none Sedation: none Handedness: rt Duration of study: 22 mins 56 secs Description: This is a 16 channel EEG with an EKG lead. Patient is reported awake and sleep during the tracing. Background EEG rhythm is about 10 hertz 5- 100 microvolt posteriorly lower amplitude fast anteriorly. During later part of the study, right frontal sharp and slow wave was noted with phase reversal at F8. Cardiac lead did not reveal any significant abnormality. Photic stimulation was unremarkable. Hyperventilation was not performed. 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
== END 2025-04-10 08:39 | disposition home or self-care (01) ==
LOC: HO.NEURO 08:38
PROVIDERS: PCP Hospitalist; Visit Provider Psychiatry & Neurology Neurology
DX: G40.909 Epilepsy, unspecified, not intractable, without status epilepticus (principal); R94.01 Abnormal electroencephalogram [EEG]
CPT/HCPCS: 95816

== ENCOUNTER → 2025-04-10 09:47 | Outpatient (BNV) | payer MEDICARE, MEDICAID, SELFPAY | PROVIDERS: PCP Hospitalist; Visit Provider Psychiatry & Neurology Neurology | DX: G40.909 Epilepsy, unspecified, not intractable, without status epilepticus (principal) | CPT/HCPCS: 95819 ==

== ENCOUNTER 2025-04-16 10:45 | Outpatient (AMB) | payer MEDICARE, MEDICAID, SELFPAY ==
--- NOTE | 2025-04-16 10:51 | MHC.OFFVIS ---
Intake Visit Reasons: after eeg Allergies scallops Allergy (Mild, Verified 04/21/24 19:37) UNKNOWN shellfish derived (SHELLFISH DERIVED) Allergy (Mild, Verified 04/21/24 19:37) UNKNOWN TUNA FISH Allergy (Mild, Uncoded 04/21/24 19:37) UNKNOWN HPI Comments Details: 65 years old man with history of alcohol abuse, diagnosis of bipolar disorder, and probably epilepsy. Seizures included generalized convulsion than he had been to emergency room at [facility] couple of times during last few years and was treated for generalized convulsion which included intubation. He was back after EEG that revealed right frontal epileptic activity. He did not have anymore episodes. He was taking 1500 mg of levetiracetam twice a day. ON LICENSE OF [facility] Medical History (Updated 04/16/25 @ 10:54 by Yesenia Olivera MD) Seizure disorder Seizure Breakthrough seizure Bipolar 1 disorder History of traumatic brain injury Status epilepticus Social History Household Members: Other Housing: [facility] Housing Other:: pt came in from [facility] Do you presently have visiting nurse or other home services: No Unable to assess alcohol history related to: Unknown Patient Tobacco Use Status: Never used Tobacco e-Cigarette/Vaping Use: Never Used service: No Review of Systems Const Details: No further seizure-like symptoms Physical Exam Neuro Other: Mental Status: Alert and oriented to person, place, and time. Normal attention. Normal spontaneous speech, fluency, and comprehension. No obvious issues with mood and memory. Affect is appropriate. Cranial Nerves: CN II: Visual rodrigez full to confrontation, visual acuity intact. CN III, IV, : Pupils equal, round, reactive to light and accommodation. Extraocular movements are normal. CN V: Facial sensation is normal. CN VII: Facial movements symmetrical. CN VIII: Hearing intact to bedside conversation is normal. CN IX, X: Palate elevates symmetrically. CN XI: Shoulder shrug and head turn symmetrical. CN XII: Tongue midline without atrophy or fasciculations. Motor: Bulk and tone normal in all extremities. No significant muscle weakness in arms and legs. No drift. Reflexes: Deep tendon reflexes 2+ and symmetric. Plantar response down-going bilaterally. Coordination: [id number] and [id number] testing normal. No dysmetria. Gait and Station: No obvious gait abnormality. No ataxia or instability. Extrapyramidal: Full facial expressions and blinking. No rigidity. Movements are appropriate with no tremor or abnormality. Speech: Normal; no dysarthria or tremor. Assessment & Plan Assessment & Plan (1) History of traumatic brain injury: Code(s): Z87.820 - Personal history of traumatic brain injury Category: Medical (2) Seizure disorder: Comment: EEG at off in 2024: R frontal epileptic discharges CT brain WO [place] [facility] [place]: Mild atrophy, mild MVD CT brain WO [place] [facility] [place] January 2023: Minimal atrophy, mild MVD Routine EEGs at [facility] [place] 2012 and 2013: WNL. Code(s): G40.909 - Epilepsy, unspecified, not intractable, without status epilepticus Category: Medical Plan Impression: Generalized seizure disorder controlled with Levetiracetam 1500mg bid Rec: Continue current med Coding Level of Care Code Tele Est Pt Level 4 (02571) Diagnoses History of traumatic brain injury Z87.820 Seizure disorder G40.909
== END 2025-04-16 11:03 | disposition home or self-care (01) ==
LOC: HO.HSM 10:46
PROVIDERS: PCP Hospitalist; Visit Provider Psychiatry & Neurology Neurology
DX: Z87.820 Personal history of traumatic brain injury (principal); G40.909 Epilepsy, unspecified, not intractable, without status epilepticus
CPT/HCPCS: 99214

== ENCOUNTER → 2025-04-16 10:45 | Outpatient (BNVA) | payer MEDICARE, MEDICAID, SELFPAY | PROVIDERS: PCP Hospitalist; Visit Provider Psychiatry & Neurology Neurology | DX: Z87.820 Personal history of traumatic brain injury (principal); G40.909 Epilepsy, unspecified, not intractable, without status epilepticus | CPT/HCPCS: 99212 ==